=== PATIENT | female | born 1945 | race Caucasian/White ===

== ENCOUNTER 2018-05-23 01:03 | Outpatient (CLI) | payer OTHER, SELFPAY ==
[2018-05-23 09:13] LABS: Abs Immature Grans 0.03 k/cumm (0.0-0.09); Absolute Basophil Count 0.01 k/cumm (0.0-0.2); Absolute Eosinophil Count 0.26 k/cumm (0.0-0.7); Absolute Lymphocyte Count 1.98 k/cumm (1.2-3.4); Absolute Neutrophil Count 4.81 k/cumm (1.2-6.7); Basophils % 0.1; Eosinophils % 3.5; HCT 38.3 % (36.0-46.0); HGB 12.2 g/dL (12.0-15.5); Immature Grans % 0.4; Lymphocytes % 26.4; Mean Corp. HGB Concentration 31.9 g/dL (32.0-36.0); Mean Corpuscular Hemoglobin 29.8 pg (27.0-33.0); Mean Corpuscular Volume 93.6 fL (80-95); Mean Platelet Volume 9.2 fL (8.0-11.0); Monocytes % 5.3; Neutrophils % 64.3; Platelet Count 294 x1000/uL (130-400); RBC 4.09 m/cumm (4.00-5.20); RBC Distribution Width 14.2 % (11.7-14.6); White Blood Cell Count 7.49 k/cumm (4.4-10.8)
[2018-05-23 09:27] LABS: Hemoglobin A1C 6.6 % (4.5-6.2)
[2018-05-23 11:03] LABS: ALT 29 U/L (12-78); AST 26 U/L (15-37); Albumin 3.4 g/dL (3.4-5.0); Alkaline Phosphatase 102 U/L (46-116); Anion Gap 13.1 mmol/L (3-11); BUN 22 mg/dL (7-18); Bilirubin, Total 0.5 mg/dL (0.2-1.0); CO2 23.9 mmol/L (21.0-32.0); CREATININE 1.21 mg/dL (0.55-1.02); Calcium 9.2 mg/dL (8.5-10.1); Chloride 104 mmol/L (98-107); Cholesterol 154 mg/dL (50-200); Estimated GFR 43.62 (mL/min/1.73m2); Glucose 144 mg/dL (70-100); HDL Cholesterol 49 mg/dL (40-60); LDL CHOLESTEROL 90 mg/dL (<100); Potassium 4.1 mmol/L (3.5-5.1); Sodium 141 mmol/L (136-145); Triglyceride 102 mg/dL (30-150)
== END 2018-05-23 01:23 ==
PROVIDERS: PCP Nurse Practitioner; Visit Provider Nurse Practitioner
DX: I10 Essential (primary) hypertension (principal); E11.9 Type 2 diabetes mellitus without complications; E78.5 Hyperlipidemia, unspecified
CPT/HCPCS: 36415; 80053; 80061; 83721; 83036; 85025

== ENCOUNTER → 2018-06-06 | Outpatient (CLI) | payer OTHER, SELFPAY ==
--- NOTE | 2018-06-06 07:23 | DI.RAD_ITS ---
SYMPTOMS/DIAGNOSIS: LEFT HIP PAIN, M25.552 LEFT HIP INJECTION: Fluoroscopy Time: 6 sec Fluoroscopy was utilized by Dr. Cruz during the performance of a left hip injection. Please refer to the procedure report for complete details.
[2018-06-06] MEDS: methylPREDNISolone ACETATE 80 MG/ML VIAL IM (15:07)
[2018-06-06] MEDS: Bupivacaine 0.5% Pres-Free 10 ML VIAL 30 ML IJ (15:08)
[2018-06-06] MEDS: Omnipaque 300 MG/ML 10 ML BTL IJ (15:10)
--- NOTE | 2018-06-06 15:35 | W.PROCNOTE ---
Date of service: 06/06/18 Time of Service: 15:35 Procedure Note Date of procedure: 06/06/18 Procedure: Left Hip Injection with Fluoroscopic Guidance Surgeon/Proceduralist/Physician: Tadeo Cruz Procedure Diagnosis: Left Hip Osteoarthritis Procedure Indications: Dena has had persistent pain of the LEFT hip and groin. Noninvasive measures have been tried. To serve as both diagnostic and therapeutic, an injection under fluoroscopy was recommended. I had discussed the risks of the procedure and the patient elected to proceed. Procedure Description: Dena was greeted in the flouroscopy room. The correct side was identified and the consent was reviewed with the patient and signed. The patient was then placed in the supine position on the fluoroscopy table. The LEFT hip was then prepped with Chloraprep. The anterolateral injection starting point was identiifed by bony landmarks and fluoroscopy. The skin and soft tissue in the tract of the injection was anesthetized with 1% Lidocaine. A spinal needle was then inserted deep into the hip joint at the level of the lateral femoral neck under fluoroscopic guidance. A small amount of Omnipaque solution was injected to confirm intraarticular placement. Once confirmed, the hip was injected with 6cc of 0.5% Bupivicaine and 80mg of Depo-Medrol. A bandaid was placed on the injection site. The patient tolerated the procedure well and noted improvement in pre-injection pain.
== END ==
PROVIDERS: PCP Nurse Practitioner; Visit Provider Student in an Organized Health Care Education/Training Program
DX: M25.552 Pain in left hip (principal); M16.12 Unilateral primary osteoarthritis, left hip
CPT/HCPCS: 20610; 77002; J1040

== ENCOUNTER 2018-06-28 00:14 | Outpatient (CLI) | payer OTHER, SELFPAY ==
--- NOTE | 2018-06-28 14:30 | DI.MRI_ITS ---
SYMPTOM/DIAGNOSIS: LT HIP PAIN LEFT HIP MRI: MRI examination of the hip was performed according to the usual protocol. There is reportedly no known injury. No significant bony signal abnormality is seen and there is no evidence of a fracture by MR criteria. Note is made of abnormal signal involving obturator externus, abductor brevis and glutei medius and minimi with findings suggesting muscle tear and/or contusion. No right sided soft tissue signal abnormality is seen. The findings could represent an inflammatory process rather than trauma. No significant fluid identified in the hip joint. CONCLUSION: Markedly abnormal signal in multiple muscles around the hip as described above, please correlate clinically regarding suspected trauma versus inflammatory or infectious process. No fracture identified. No hip joint effusion.
== END 2018-06-28 00:34 ==
PROVIDERS: PCP Nurse Practitioner; Visit Provider Student in an Organized Health Care Education/Training Program
DX: M25.552 Pain in left hip (principal); R93.7 Abnormal findings on diagnostic imaging of other parts of musculoskeletal system
CPT/HCPCS: 73721

== ENCOUNTER 2018-07-03 12:53 | Inpatient (IN) | payer OTHER, MEDICARE, SELFPAY ==
[2018-07-03 13:00] VITALS: BP 139/66; PULSE 95; RESP 18; TEMP 36.7; O2SAT 99
[2018-07-03 14:12] VITALS: BP 139/66; PULSE 95; RESP 18; TEMP 36.7; O2SAT 99
[2018-07-03 15:20] VITALS: BP 118/70; PULSE 92; RESP 16; TEMP 37; O2SAT 100
[2018-07-03] MEDS: PIPERACILLIN/TAZO 3.375 GM in Normal Saline 50 ML IVPB ×2 (15:25→20:52)
[2018-07-03] MEDS: Normal Saline Flush 10 ML SYR IVP (15:26)
[2018-07-03] MEDS: Normal Saline 500 ML 50 ML IV (15:26)
[2018-07-03] MEDS: VANCOMYCIN 1,000 MG in Normal Saline 250 ML 166.6666 MG IVPB (16:22)
--- NOTE | 2018-07-03 16:23 | W.PM.HP.N ---
Date of service: 07/03/18 Time of Service: 16:23 Assessment and Plan (1) Abscess of left hip: Current visit: Yes Status: Acute Dena is a 73-year-old who has soft tissue abscesses of the left hip. It is very possible that this infection started in the hip joint itself but I reaspirated the hip today with confirmation to be an intra-articular without any return of fluid. Therefore, I do not think this has to be operated on for debridement. Given her habitus I do think there is morbidity and performing the surgery if we can treat without. I do think we will start broad-spectrum antibiotics. We will check blood cultures. I will likely narrow her down assuming this is a staph organism. I did discuss the case at length with the musculoskeletal radiologist at [facility]. They do not believe that the abscesses are large enough to drain. We will continue to follow her labs. I will ask for a hospice consult given her multiple medical issues and the spontaneous nature of this left hip infection. We will start Vanco and Zosyn. Blood cultures are ordered. Her CRP is elevated at over 7 and we will follow this daily. History of Present Illness Chief Complaint: Left Hip Pain Narrative: Dena is a 73-year-old who has been seen for left hip pain. This pain started insidiously. It developed over the course of a few months and really worsened over the last 3 weeks. This time we treat her for what appear to be hip tendinitis. This did not improve and therefore I offered an intra-articular injection. This injection did not seem to help out her pain and since that injection things only gotten worse. She denies any significant pain when she stands. However, the initiation of movement of the hip causes significant pain. This pain is posterior lateral but also is deep within the groin and the medial proximal thigh. She denies numbness or tingling. She is unable to ambulate more than 7 or 8 steps at home but she is still doing this on a daily basis. She has to use multiple assistive devices. She denies any fevers or chills. She denies fatigue. She denies chest pain, shortness of breath, cough. She denies dysuria or frequency. She has had no previous procedures to this left hip. I did perform an MRI which revealed multiple fluid collections within the musculature of the left hip. Review of Systems Review of Systems All systems reviewed & are unremarkable except as noted in HPI and below PFSH Diabetes mellitus, type 2 Disorder of gallbladder Female infertility Hyperlipidemia Hypertension Obesity Family History Other Diabetes Heart disease Hyperlipidemia Abdominal hysterectomy Biopsy of breast Cholecystectomy Dilation and curettage Open Carpal Tunnel release Replacement of total knee joint Family History Other Diabetes Heart disease Hyperlipidemia Medical History Diabetes mellitus, type 2 Disorder of gallbladder Female infertility Hyperlipidemia Hypertension Obesity Social History adopted: No lives independently: Yes number of children: 0 Smoking/Tobacco Use Status: Never alcohol intake: never substance use type: does not use seatbelt use: always Surgical History Abdominal hysterectomy Biopsy of breast Cholecystectomy Dilation and curettage Open Carpal Tunnel release Replacement of total knee joint Social History adopted: No lives independently: Yes number of children: 0 Smoking/Tobacco Use Status: Never alcohol intake: never substance use type: does not use seatbelt use: always Meds Home Medications Medication Instructions Recorded Confirmed Type blood sugar diagnostic [FreeStyle #100 strip 12/12/17 06/24/18 Rx Test] lancets [FreeStyle Lancets] #50 ea 12/12/17 06/24/18 Rx losartan [Cozaar] 75 mg PO DAILY #135 tab 01/31/18 07/03/18 Rx hydrochlorothiazide 12.5 mg PO DAILY #45 tab 03/04/18 07/03/18 Rx atorvastatin [Lipitor] 10 mg PO DAILY #90 tab-cap 03/19/18 07/03/18 Rx celecoxib 200 mg capsule 200 mg PO DAILY #90 cap 04/10/18 07/03/18 Rx sitagliptin 50 mg tablet 50 mg PO DAILY #90 tab 06/12/18 07/03/18 Rx Allergies Allergy/AdvReac Type Severity Reaction Status Date / Time prednisone AdvReac Mild Unverified 06/24/18 13:26 Exam Narrative Exam Narrative: Evaluation of the left hip shows no erythema. There is some pain to palpation medially within the left hip. She is able to tolerate some gentle internal/external rotation. However, active range of motion causes significant pain including flexion, internal rotation, external rotation. Passive rotation does seem to cause pain after about 10 or 15 degree arc. There are no open sores. No wounds. There is pain to palpation along the left hip including the greater trochanter. Sensation intact light touch over the deep and superficial peroneal nerves and tibial nerve. Femoral nerve sensation and function is intact. Results Imaging Imaging Studies: MRI of the left hip with and without contrast shows multiple areas of enhancing fluid collections around the piriformis, obturator externus, abductor brevis, and gluteus medius. There is not appear to be any significant fluid within the left hip although there is synovitis and irritation inflammation seen around the left hip. Last Vital Signs Temp 37.0 C 07/03/18 15:20 Pulse 92 H 07/03/18 15:20 Resp 16 07/03/18 15:20 BP 118/70 07/03/18 15:20 Pulse Ox 100 07/03/18 15:20
--- NOTE | 2018-07-03 17:05 | MCONE_ITS ---
Date of service: 07/03/18 Time of Service: 16:59 Assessment and Plan (1) Abscess of left hip: Current visit: Yes Status: Acute Discussed with Dr Cruz. As we do not have any microbiology data to help guide our antibiotic therapy, I feel the patient should be on vancomycin/ zosyn. Blood cultures are pending. Will trend ESR/CRP and monitor for fevers. (2) Diabetes mellitus type 2 in obese: Current visit: No Status: Chronic Patient will be on carb consistent diet with corrective insulin coverage. (3) Essential hypertension: Current visit: No Status: Chronic Agree with continuing home medications. (4) Hyperlipidemia: Current visit: No Status: Chronic Continue atorvastatin (5) Morbid obesity: Current visit: No Status: Chronic More than obesity, I am concerned about the patient's unintentional weight loss. She has never had a colonoscopy. She is due for her mammogram. A malignancy does not need to be considered, especially considering the somewhat odd story with the development of the L hip abscesses. (6) Ambulatory dysfunction: Current visit: Yes Status: Acute PT/OT consults (7) DVT prophylaxis: Current visit: Yes Status: Acute Defer to primary team History of Present Illness Chief Complaint: L hip pain Narrative: Ms Madrigal is a 73 year old female with PMHx of NIDDM2, HTN, hyperlipidemia, obesity with BM of 47 and osteoarthritis, who was admitted to Dr Cruz's service for fluid collections around her L hip, suspected to be of infectious etiology/abscesses. The patient stated that her L hip pain began around February 11. She does not recall any trauma to that hip preceding this. She went to the ED that - she was told she had a UTI, was given a prescription for keflex and was discharged. The antibiotics didn't help. Meanwhile, the pain did get better on its own, but then started to get progressively worse, and especially so over the last 3 weeks, to the point that the patient had to take FMLA. She had a L hip injection by Dr Cruz on 06/06/18, with no relief. She obtained a non-contrast MRI of the hip as outpatient of 06/28 and a contrast MRI on 07/03, after which it was felt that she would necessitate admission as the MRI showed possible septic arthritis and multiple adjacent muscular and soft tissue abscesses. An attempt to aspirate one of these abscesses was unsuccessful. Consults Consult date: 07/03/18 Requesting physician: Tadeo Cruz Review of Systems Review of Systems 12 systems reviewed. Pertinent positives and negatives are as per HPI. Additionally, the patient endorses a 10 lb unintentional weight loss in 3 weeks. She denies any fevers or night sweats. PFSH Diabetes mellitus, type 2 Disorder of gallbladder Female infertility Hyperlipidemia Hypertension Obesity Family History Other Diabetes Heart disease Hyperlipidemia Abdominal hysterectomy Biopsy of breast Cholecystectomy Dilation and curettage Open Carpal Tunnel release Replacement of total knee joint Family History Other Diabetes Heart disease Hyperlipidemia Medical History Diabetes mellitus, type 2 Disorder of gallbladder Female infertility Hyperlipidemia Hypertension Obesity Social History adopted: No lives independently: Yes number of children: 0 Smoking/Tobacco Use Status: Never alcohol intake: never substance use type: does not use seatbelt use: always Surgical History Abdominal hysterectomy Biopsy of breast Cholecystectomy Dilation and curettage Open Carpal Tunnel release Replacement of total knee joint Social History adopted: No lives independently: Yes number of children: 0 Smoking/Tobacco Use Status: Never alcohol intake: never substance use type: does not use seatbelt use: always Exam Narrative Exam Narrative: General: Obese female, very pleasant, laying in bed, not in acute distress Neurological: A&Ox3, no focal deficits Psychiatric: appropriate Skin: no bruises or rashes - intact HEENT: EOMI, MMM, clear oropharynx, no goiter or JVD, no submandibular or cervical lymphadenopathy Cardiovascular: RRR, no m/r/g Lungs: CTAB Gastrointestinal: abdomen soft, nontender, nondistended Extremities: no edema, clubbing, or cyanosis of BLE's. 2 + pedal pulses B. L groin pain. Results Last Vital Signs Temp 37.0 C 07/03/18 15:20 Pulse 92 H 07/03/18 15:20 Resp 16 07/03/18 15:20 BP 118/70 07/03/18 15:20 Pulse Ox 100 07/03/18 15:20 MRI L hip with contrast 07/03/18: Marked abnormal enhancement surrounding the left hip consistent with septic arthritis and multiple adjacent muscular and soft tissue abscesses.
--- NOTE | 2018-07-03 17:50 | W.PROCNOTE ---
Date of service: 07/03/18 Time of Service: 17:51 Procedure Note Date of procedure: 07/03/18 Procedure: Left Hip Aspiration with Fluoroscopic Guidance Surgeon/Proceduralist/Physician: Tadeo Cruz Procedure Diagnosis: Left Hip Pain Procedure Indications: Dena has had persistent pain of the LEFT hip and groin. Noninvasive measures have been tried. multiple abscesses have been found around the left hip. To evaluate if there is any effusion within left hip, and aspiration was recommended. Procedure Description: Dena was greeted in the flouroscopy room. The correct side was identified and the consent was reviewed with the patient and signed. The patient was then placed in the supine position on the fluoroscopy table. The LEFT hip was then prepped with Chloraprep. The anterolateral injection starting point was identiifed by bony landmarks and fluoroscopy. The skin and soft tissue in the tract of the injection was anesthetized with 1% Lidocaine. A spinal needle was then inserted deep into the hip joint at the level of the lateral femoral neck under fluoroscopic guidance. An aspiration was performed which did not obtain any fluid. I then injected a small amount of Omnipaque solution was injected to confirm intraarticular placement. Once confirmed, the hip was once again aspirated with no significant return of fluid. A bandaid was placed on the injection site.
[2018-07-03 19:36] VITALS: BP 145/68; PULSE 86; RESP 19; TEMP 36.9; O2SAT 95
[2018-07-03 20:17] VITALS: BP 145/68; PULSE 86; RESP 19; TEMP 36.9; O2SAT 95
[2018-07-03 23:40] VITALS: BP 134/75; PULSE 87; RESP 16; TEMP 37.2; O2SAT 97
[2018-07-03] MEDS: Acetaminophen 325 MG TAB 650 MG PO (23:46)
[2018-07-04] MEDS: PIPERACILLIN/TAZO 3.375 GM in Normal Saline 50 ML IVPB ×3 (02:31→16:15)
[2018-07-04] MEDS: Normal Saline Flush 10 ML SYR IVP (02:31)
[2018-07-04 02:43] VITALS: BP 132/76; PULSE 89; RESP 16; TEMP 36.9; O2SAT 97
[2018-07-04] MEDS: VANCOMYCIN 1,000 MG in Normal Saline 250 ML 166.7 MG IVPB (03:43)
--- NOTE | 2018-07-04 06:27 | W.ORTHOCONSU ---
PFSH Diabetes mellitus, type 2 Disorder of gallbladder Female infertility Hyperlipidemia Hypertension Obesity Family History Other Diabetes Heart disease Hyperlipidemia Abdominal hysterectomy Biopsy of breast Cholecystectomy Dilation and curettage Open Carpal Tunnel release Replacement of total knee joint Family History Other Diabetes Heart disease Hyperlipidemia Medical History Diabetes mellitus, type 2 Disorder of gallbladder Female infertility Hyperlipidemia Hypertension Obesity Social History adopted: No lives independently: Yes number of children: 0 Smoking/Tobacco Use Status: Never alcohol intake: never substance use type: does not use seatbelt use: always Surgical History Abdominal hysterectomy Biopsy of breast Cholecystectomy Dilation and curettage Open Carpal Tunnel release Replacement of total knee joint Social History adopted: No lives independently: Yes number of children: 0 Smoking/Tobacco Use Status: Never alcohol intake: never substance use type: does not use seatbelt use: always Results Last Vital Signs Temp 98.4 F 07/04/18 02:43 Pulse 89 07/04/18 02:43 Resp 16 07/04/18 02:43 BP 132/76 07/04/18 02:43 Pulse Ox 97 07/04/18 02:43 Labs : 07/04/18 05:35 07/04/18 05:35
[2018-07-04 07:30] VITALS: BP 143/72; PULSE 79; RESP 18; TEMP 36.3; O2SAT 97
[2018-07-04 07:33] LABS: Abs Immature Grans 0.02 k/cumm (0.0-0.09); Absolute Basophil Count 0.01 k/cumm (0.0-0.2); Absolute Eosinophil Count 0.15 k/cumm (0.0-0.7); Absolute Lymphocyte Count 1.48 k/cumm (1.2-3.4); Absolute Monocyte Count 0.41 k/cumm (0.11-0.7); Basophils % 0.2; Eosinophils % 2.5; HCT 31.4 % (36.0-46.0); HGB 9.7 g/dL (12.0-15.5); Immature Grans % 0.3; Lymphocytes % 24.4; Mean Corp. HGB Concentration 30.9 g/dL (32.0-36.0); Mean Corpuscular Hemoglobin 28.9 pg (27.0-33.0); Mean Corpuscular Volume 93.5 fL (80-95); Mean Platelet Volume 8.9 fL (8.0-11.0); Monocytes % 6.8; Neutrophils % 65.8; Platelet Count 353 x1000/uL (130-400); RBC 3.36 m/cumm (4.00-5.20); RBC Distribution Width 13.9 % (11.7-14.6); White Blood Cell Count 6.07 k/cumm (4.4-10.8)
[2018-07-04 07:34] LABS: Absolute Neutrophil Count 3.99 k/cumm (1.2-6.7)
[2018-07-04 07:37] LABS: Anion Gap 7.3 mmol/L (3-11); BUN 21 mg/dL (7-18); CO2 29.7 mmol/L (21.0-32.0); CREATININE 1.27 mg/dL (0.55-1.02); Calcium 8.7 mg/dL (8.5-10.1); Chloride 104 mmol/L (98-107); Creatine Kinase 46 U/L (26-192); Estimated GFR 41.25 (mL/min/1.73m2); Glucose 141 mg/dL (70-100); Magnesium 1.2 mg/dL (1.8-2.4); Potassium 3.8 mmol/L (3.5-5.1); Sodium 141 mmol/L (136-145)
--- NOTE | 2018-07-04 07:52 | PDOC.CMIN ---
- If Service Date Differs Date of service: 07/04/18 Time of Service: 07:52 Care Management Initial Assess REASON FOR HOSPITALIZATION:: (L) Hip abscess PAST MEDICAL HISTORY/PAST SURGICAL HISTORY:: Diabetes mellitus, type 2. Disorder of gallbladder. Female infertility. Hyperlipidemia. Hypertension. Obesity. Abdominal hysterectomy. Biopsy of breast. Cholecystectomy. Dilation and curettage. Open Carpal Tunnel release. Replacement of total knee joint PREVIOUS FUNCTIONAL STATUS/SOCIAL/FAMILY SUPPORTS:: Dena resides alone in [place], she states that she has friends/neighbors whom are local and supportive. Dena states that her judaism is very supportive, and that her milling machine operator is who brought her to the hospital. Dena works at [employer] in the [employer] department, she states that she works 20 hours a pay period, and that she still drives to work. CURRENT FUNCTIONAL STATUS:: Currently Dena is sitting up in bed when this writer editor visits. She is pleasant and receptive to discussion. ADVANCE DIRECTIVES:: On file - Joseluis Carlos is agent. Taylor Carlos is alternate Has patient been provided with information about the portal?: Yes Did the patient sign up for the portal?: No CODE STATUS:: Full Code INSURANCE COVERAGE / FINANCIAL ISSUES:: [employer], Medicare CURRENT HOME/COMMUNITY SERVICES/EQUIPMENT:: Currently Dena has a cane at home. She has no services in the community. PRIMARY CARE PHYSICIAN:: Shilpi Roman POTENTIAL DISCHARGE NEEDS:: F/U appointment with Dr. Cruz PATIENT/FAMILY EDUCATION NEEDS:: Review DC instructions, any limitations, and ongoing DC planning discussion. ANTICIPATED BARRIERS TO DISCHARGE:: None identified at this time. TRANSPORTATION:: Via private vehicle PLAN:: Dena will return home with no anticipated services. Dena will F/U with Dr. Cruz and plan of care as prescribed. CM met with PT whom states that Dena will require a FWW at time of DC. CM met with Dena whom states that she would like [facility] for her DME.
--- NOTE | 2018-07-04 07:56 | INITIAL_ITS ---
- If Service Date Differs Date of service: 07/04/18 Time of Service: 07:52 Care Management Initial Assess REASON FOR HOSPITALIZATION:: (L) Hip abscess PAST MEDICAL HISTORY/PAST SURGICAL HISTORY:: Diabetes mellitus, type 2. Disorder of gallbladder. Female infertility. Hyperlipidemia. Hypertension. Obesity. Abdominal hysterectomy. Biopsy of breast. Cholecystectomy. Dilation and curettage. Open Carpal Tunnel release. Replacement of total knee joint PREVIOUS FUNCTIONAL STATUS/SOCIAL/FAMILY SUPPORTS:: Dena resides alone in [place], she states that she has friends/neighbors whom are local and supportive. Dena states that her sikh is very supportive, and that her tricot knitter is who brought her to the hospital. Dena works at [employer] in the [employer] department, she states that she works 20 hours a pay period, and that she still drives to work. CURRENT FUNCTIONAL STATUS:: Currently Dena is sitting up in bed when this scenario writer visits. She is pleasant and receptive to discussion. ADVANCE DIRECTIVES:: On file - Joseluis Carlos is agent. Taylor Carlos is alternate Has patient been provided with information about the portal?: Yes Did the patient sign up for the portal?: No CODE STATUS:: Full Code INSURANCE COVERAGE / FINANCIAL ISSUES:: [employer], Medicare CURRENT HOME/COMMUNITY SERVICES/EQUIPMENT:: Currently Dean has a cane at home. She has no services in the community. PRIMARY CARE PHYSICIAN:: Shilpi Roman POTENTIAL DISCHARGE NEEDS:: F/U appointment with Dr. Cruz PATIENT/FAMILY EDUCATION NEEDS:: Review DC instructions, any limitations, and ongoing DC planning discussion. ANTICIPATED BARRIERS TO DISCHARGE:: None identified at this time. TRANSPORTATION:: Via private vehicle PLAN:: Dena will return home with no anticipated services. Dena will F/U with Dr. Cruz and plan of care as prescribed. CM met with PT whom states that Dena will require a FWW at time of DC. CM met with Dena whom states that she would like [facility] for her DME.
[2018-07-04] MEDS: Insulin Aspart 300 UNITS/3 ML PEN SC ×4 (08:38→22:24)
[2018-07-04] MEDS: Hydrochlorothiazide 25 MG TAB 12.5 MG PO (08:40)
[2018-07-04] MEDS: Atorvastatin 10 MG TAB PO (08:40)
[2018-07-04] MEDS: sitaGLIPtin 25 MG TABLET 50 MG PO (08:41)
[2018-07-04] MEDS: Losartan 50 MG TAB 75 MG PO (08:41)
--- NOTE | 2018-07-04 08:41 | OT.INIE ---
Occupational Therapy Notes Inpatient Occupational Therapy Evaluation Date: 07/04/18 Referring Doctor:Bridgett Ge MD OT Orders: Eval and Treat PATIENT PROFILE/ADMITTING DIAGNOSIS: Pt is a 73 year old female who was seen on 07/03/[address] Crzu for a (L) hip abscess. Pt was seen today for OT consult. Past Medical History: DMII, Disorder of gall bladder, hyperlipidemia, HTN, Obesity, abnormal hysterectomy, cholecystectomy, open carpal tunnel release, total knee replacement about 14 years ago. Social History/Home Situation: Pt lives alone in a mobile home. She has four steps to enter with (B) railings. She reports that her home set up is all on one floor. She has a walk in shower with a shower chair and is (I) with all ADLs/IADLs. Equipment owned/DME: Cane, shower chair SUBJECTIVE: Pt was sitting in chair when OT arrived. Pt is agreeable to OT session and reports that her baseline and current functional independence is (I) with all ADLs/IADLs. OBJECTIVE: General Observation: IV (L) UE, pt is pleasant and responds appropriately to questions being asked. Mental Status: A&Ox3 Pain: 4/10 pain in (L) groin ROM: RUE WNL L UE WNL STRENGTH: RUE 5/5 throughout LUE 5/5 throughout SENSATION: Pt intact to light touch and sensation through (B) UE. EATING (I) able to open and close all containers and bring food to mouth (I). BALANCE: Static sitting Normal Dynamic Sitting Normal SPECIAL TESTS: Daily Activity Limitations Standardized Measure [facility] AM -PAC ?6 clicks? Daily Activity Inpatient Short Form: Raw score: 23 Standardized score: 51.12 CMS score: 15.86% [facility] modifier: CI INFORMED CONSENT/EDUCATION: Pt instructed in purpose of OT Consult and plan of care. ASSESSMENT: Patient is a 73-year-old female referred to occupational therapy services with diagnosis of (L) hip abscess and was seen by Dr. Cruz on 07/03/18 in setting of DMII, Disorder of gall bladder, hyperlipidemia, HTN, Obesity, abnormal hysterectomy, cholecystectomy, open carpal tunnel release, total knee replacement about 14 years ago. Patient was seen for OT consult, she is performing at her baseline (I) for functional ADLs/IADLs and is very (I). Her home is set up for a successful return home and OT recommends that pt return home when medically discharged per MD orders. AMPAC score 23, CMS score 15.86% Patient is assessed as a Low 08686 complexity based on the following: History: See Above Examination: See Above Presentation: Stable Decision Making: AMPAC score 23, CMS score 15.86% GOALS N/A PLAN OF CARE/TREATMENT PLAN: OT consult only. DISCHARGE RECOMMENDATIONS Home when medically cleared per MD. TREATMENT TIME/MINUTES/CODES IE 21 minutes (08:20) G Codes in the area of self- : washing oneself, toileting, dressing, eating and drinking, current status GO [id number] CI projected status GO [id number]. Discharge status GO [id number]. Based on AMPAC score 23, CMS score 15.86%. Sanjuana Hernandez OTR/L
--- NOTE | 2018-07-04 09:32 | PT.INIE ---
Date of service: 07/04/18 Time of Service: 09:33 PT Notes Inpatient Physical Therapy Evaluation Date: 07/04/2018 Referring Doctor: Bridgett Ge PT Orders: PT CONSULT: Eval/treat Precautions: Standard precautions Patient Profile/Admitting Diagnosis: Patient is a 73-year-old female admitted with abscess left hip, receiving IV antibiotics PMHX: Obesity, total knee arthroplasty, carpal tunnel release, diabetes mellitus type 2, hypertension, hyperlipidemia, gallbladder disorder, hysterectomy, cholecystectomy, dilation and curettage, fertility issues Social History/Home Situation: Lives alone in a trailer 4 steps with bilateral railing to enter. Baseline mobility independent gait with single-point cane, independent with ADLs. Equipment Owned/DME: Cane, shower bench. Patient states she feels she needs a front wheel walker at this time due to left hip abscess to improve gait stability and home setting Subjective: Patient sitting in chair finished breakfast alert and agreeable to PT consult, states she is admit been moving around without difficulty. Objective: General Observation: IV left upper extremity Mental Status: A and O x3 Pain: Mild pain left hip with exertion Bed Mobility/Transfers: Sit to stand: Independent Chair to bathroom: Independent with FWW Stand to sit: Independent Sit<> supine: Patient states she needs assist with hospital bed transfers due to height of bed, but she is independent with this transfer at home due to bed height being lower. Gait: Independent with FWW 250 feet, WBAT LLE, step through gait pattern with no loss of balance Stairs: Performed 5 steps ascending and descending with bilateral railing, WBAT LLE, independent. Reviewed step sequence, patient verbalized understanding Therex: Patient issued home exercise program and instructed in lower extremity strengthening program, focusing on ankle pumps quad sets glutes sets, long arc quad left lower extremity. Hip flexion straight leg raise hip abduction right lower extremity. Patient verbalized understanding and had no questions about home exercise program at this time. Balance: Static Sitting: Normal Dynamic Sitting: Normal Static Standing: Good Dynamic Standing: Fair-requiring FWW Special Tests: Mobility Limitations Standardized Measure [facility] AM-PAC 6 clicks Basic Mobility Inpatient Short Form: Raw Score: 24 standardized Score: 61.14 CMS Score: 0% CMS Modifier: CH Informed Consent/Education: Patient instructed in purpose of PT consult and plan of care. Assessment: Patient is a 73-year-old female admitted with abscess left hip, receiving IV antibiotics in setting of obesity, total knee arthroplasty, carpal tunnel release, diabetes mellitus type 2, hypertension. Patient presents with the following impairment level findings: Pain in left hip status post abscess and drainage, decreased static and dynamic standing balance requiring use of front wheel walker for gait stability due to left hip soreness. Patient is independent with transfers, independent with gait with use of FWW on level sufaces, independent with stairs. Patient has been instructed in lower extremity strengthening exercises she can perform independently. Patient is not in need of skilled therapy services at this time, recommend continued transfers and gait mobility with FWW with nursing until discharge. FWW recommended for home to reduce risk of fall due to left hip soreness. Impairments are contributing to the following functional limitations: AMPAC score CMS Score: 0% Patient is assessed as a Low 27286 complexity based on the following: History: See above Examination: See above Presentation: Stable Decision Making: : AMPAC score CMS Score: 0% Goals: not applicable Plan of Care/Treatment Plan: PT eval only DISCHARGE RECOMMENDATIONS: Home with FWW for gait stability TREATMENT CODE/TIME: 27 minutes IE 9:30 AM G Codes in the area mobility of walking and moving around: current status [id number] -; projected status GP [id number]. Discharge status (if discharging) GP [id number] based on : AMPAC score CMS Score: 0% Gayla Wilburn PT Disclaimer: This note was created using [employer] voice recognition software. It was reviewed for major content. However, there may be multiple small discrepancies and errors due to the voice recognition aspects of the software.
--- NOTE | 2018-07-04 09:45 | IN_ITS ---
Date of service: 07/04/18 Time of Service: 09:33 PT Notes Inpatient Physical Therapy Evaluation Date: 07/04/2018 Referring Doctor: Bridgett Ge PT Orders: PT CONSULT: Eval/treat Precautions: Standard precautions Patient Profile/Admitting Diagnosis: Patient is a 73-year-old female admitted with abscess left hip, receiving IV antibiotics PMHX: Obesity, total knee arthroplasty, carpal tunnel release, diabetes mellitus type 2, hypertension, hyperlipidemia, gallbladder disorder, hysterectomy, cholecystectomy, dilation and curettage, fertility issues Social History/Home Situation: Lives alone in a trailer 4 steps with bilateral railing to enter. Baseline mobility independent gait with single-point cane, independent with ADLs. Equipment Owned/DME: Cane, shower bench. Patient states she feels she needs a front wheel walker at this time due to left hip abscess to improve gait stability and home setting Subjective: Patient sitting in chair finished breakfast alert and agreeable to PT consult, states she is admit been moving around without difficulty. Objective: General Observation: IV left upper extremity Mental Status: A and O x3 Pain: Mild pain left hip with exertion Bed Mobility/Transfers: Sit to stand: Independent Chair to bathroom: Independent with FWW Stand to sit: Independent Sit<> supine: Patient states she needs assist with hospital bed transfers due to height of bed, but she is independent with this transfer at home due to bed height being lower. Gait: Independent with FWW 250 feet, WBAT LLE, step through gait pattern with no loss of balance Stairs: Performed 5 steps ascending and descending with bilateral railing, WBAT LLE, independent. Reviewed step sequence, patient verbalized understanding Therex: Patient issued home exercise program and instructed in lower extremity strengthening program, focusing on ankle pumps quad sets glutes sets, long arc quad left lower extremity. Hip flexion straight leg raise hip abduction right lower extremity. Patient verbalized understanding and had no questions about home exercise program at this time. Balance: Static Sitting: Normal Dynamic Sitting: Normal Static Standing: Good Dynamic Standing: Fair-requiring FWW Special Tests: Mobility Limitations Standardized Measure [facility] AM-PAC 6 clicks Basic Mobility Inpatient Short Form: Raw Score: 24 standardized Score: 61.14 CMS Score: 0% CMS Modifier: CH Informed Consent/Education: Patient instructed in purpose of PT consult and plan of care. Assessment: Patient is a 73-year-old female admitted with abscess left hip, receiving IV antibiotics in setting of obesity, total knee arthroplasty, carpal tunnel release, diabetes mellitus type 2, hypertension. Patient presents with the following impairment level findings: Pain in left hip status post abscess and drainage, decreased static and dynamic standing balance requiring use of front wheel walker for gait stability due to left hip soreness. Patient is independent with transfers, independent with gait with use of FWW on level sufaces, independent with stairs. Patient has been instructed in lower extremity strengthening exercises she can perform independently. Patient is not in need of skilled therapy services at this time, recommend continued transfers and gait mobility with FWW with nursing until discharge. FWW recommended for home to reduce risk of fall due to left hip soreness. Impairments are contributing to the following functional limitations: AMPAC score CMS Score: 0% Patient is assessed as a Low 40605 complexity based on the following: History: See above Examination: See above Presentation: Stable Decision Making: : AMPAC score CMS Score: 0% Goals: not applicable Plan of Care/Treatment Plan: PT eval only DISCHARGE RECOMMENDATIONS: Home with FWW for gait stability TREATMENT CODE/TIME: 27 minutes IE 9:30 AM G Codes in the area mobility of walking and moving around: current status [id number] -; projected status GP [id number]. Discharge status (if discharging) GP [id number] based on : AMPAC score CMS Score: 0% Gayla Wilburn PT Disclaimer: This note was created using [employer] voice recognition software. It was reviewed for major content. However, there may be multiple small discrepancies and errors due to the voice recognition aspects of the software.
--- NOTE | 2018-07-04 11:52 | CHAPLAIN ---
Dena is an [employer] employee who works in [employer]. She was admitted last night and this morning tells me she is waiting to here from Dr. Cruz what her next steps will be. She had tests yesterday and told me she has sacks of fluid on her hip, and she hasn't been able to work for a couple of weeks. Dena is a member of the [employer]. Her pacu rn, Rev. Kolby Johnson, brought to the hospital yesterday and will continue to be in touch with her. Dena said the [employer] community has been very supportive of her. Coworkers have also be in to visit with her and offer support.
[2018-07-04 11:57] VITALS: BP 121/74; PULSE 91; RESP 18; TEMP 36.9; O2SAT 97
[2018-07-04] MEDS: MAGNESIUM SULFATE 4 GM/100 ML BAG IVPB (12:25)
--- NOTE | 2018-07-04 15:28 | DI.RAD_ITS ---
SYMPTOMS/DIAGNOSIS: POST LINE INSERTION PORTABLE SEMI-ERECT CHEST: Comparison is made with September,. The heart size is at the upper limits of normal. The lungs appear clear. A PICC line has been inserted via the left arm. The tip projects in the superior vena cava. No pneumothorax is seen. IMPRESSION: Satisfactory positioning of PICC line.
[2018-07-04] MEDS: Lactobacillus Acidophilus CAP 1 CAP PO ×2 (15:49→19:47)
[2018-07-04 17:08] VITALS: BP 148/72; PULSE 116; RESP 20; TEMP 36.4; O2SAT 98
--- NOTE | 2018-07-04 18:18 | W.PM.PROGNOT ---
Date of Service Date of service: 07/04/18 Time of Service: 15:00 Assessment and Plan (1) Abscess of left hip: Current visit: Yes Status: Acute Blood cultures are pending. I have placed a call to [facility] - awaiting call back. Continue empiric antiobiotics. Trend CRP. (2) Diabetes mellitus type 2 in obese: Current visit: No Status: Chronic Continue basal bolus insulin - BG's in range. Continue januvia. (3) Essential hypertension: Current visit: No Status: Chronic No change in tx (4) Hyperlipidemia: Current visit: No Status: Chronic Continue atorvastatin (5) Morbid obesity: Current visit: No Status: Chronic BMI 46 Once able, the patient should be encouraged to make lifestyle modefications (6) Ambulatory dysfunction: Current visit: Yes Status: Acute PT/OT is working with the patient (7) DVT prophylaxis: Current visit: Yes Status: Acute Defer to primary team - surgical plans not yet formalized Subjective Interval history since last seen: The patient states her pain in the hip is 5/10. She is able to walk on it. She denies dizziness, chest pain, shortness of breath, nausea, vomiting. Exam Narrative Exam Narrative: General: obese female, appears comfortable in a chair HEENT: EOMI, MMM Heart: RRR, no m/r/g Lungs: CTAB GI: abdomen soft, nontender, nondistended Extremities: no e/c/c BLE's Objective Objective Clinical Data: Abnormal lab results 07/04/18 07/04/18 Range/Units 06:40 06:40 RBC 3.36 L (4.00-5.20) m/cumm Hgb 9.7 L (12.0-15.5) g/dL Hct 31.4 L (36.0-46.0) % MCHC 30.9 L (32.0-36.0) g/dL BUN 21 H (7-18) mg/dL Creatinine 1.27 H (0.55-1.02) mg/dL Glucose 141 H D (70-100) mg/dL Magnesium 1.2 L (1.8-2.4) mg/dL Vital Signs Temperature 36.4 C L 07/04/18 17:08 Temperature Source Tympanic 07/04/18 17:08 Pulse 116 H 07/04/18 17:08 Pulse Rhythm Regular 07/04/18 11:09 Respiratory Rate 20 07/04/18 17:08 Respiratory Effort 07/04/18 11:09 Respiratory Depth Normal 07/04/18 11:09 Respiratory Pattern Normal 07/04/18 11:09 Blood Pressure 148/72 H 07/04/18 17:08 Pulse Oximetry 98 07/04/18 17:08 Oxygen Delivery Method Room Air 07/04/18 17:08 Oxygen Flow Rate 0 07/04/18 17:08 Pain Level 5 07/04/18 11:57 Intake & Output 07/03/18 07/04/18 07/04/18 23:59 11:59 23:59 Intake Total 1056.667 / 7396.434 5311.333 / 1163.333 530 / 530 Output Total 800 / 800 750 / 750 700 / 700 Balance 256.667 / 256.667 413.333 / 413.333 -170 / -170 Weight 104.5 kg Intake: IV 576.667 / 576.667 573.333 / 573.333 50 / 50 Oral 480 / 480 590 / 590 480 / 480 Output: Urine 800 / 800 750 / 750 700 / 700 Other: Urine Color Yellow Yellow Yellow Urine Appearance Clear Clear Clear Urine Odor None Normal None Comment not viewed independent void Stool Size Small Stool Characteristics Soft Formed Voiding Methods Toilet Toilet Toilet Laboratory Results WBC 6.07 k/cumm (4.4-10.8) D 07/04/18 06:40 RBC 3.36 m/cumm (4.00-5.20) L 07/04/18 06:40 Hgb 9.7 g/dL (12.0-15.5) L 07/04/18 06:40 Hct 31.4 % (36.0-46.0) L 07/04/18 06:40 MCV 93.5 fL (80-95) 07/04/18 06:40 MCH 28.9 pg (27.0-33.0) 07/04/18 06:40 MCHC 30.9 g/dL (32.0-36.0) L 07/04/18 06:40 RDW 13.9 % (11.7-14.6) 07/04/18 06:40 Plt Count 353 x1000/uL (130-400) 07/04/18 06:40 MPV 8.9 fL (8.0-11.0) 07/04/18 06:40 Immature Gran % 0.3 07/04/18 06:40 Neutrophils % 65.8 07/04/18 06:40 Lymphocytes % 24.4 12 06:40 Monocytes % 6.8 12 06:40 Eosinophils % 2.5 07/04/18 06:40 Basophils % 0.2 07/04/18 06:40 Absolute Neutrophils 3.99 k/cumm (1.2-6.7) 07/04/18 06:40 Absolute Lymphocytes 1.48 k/cumm (1.2-3.4) 07/04/18 06:40 Absolute Monocytes 0.41 k/cumm (0.11-0.7) 07/04/18 06:40 Absolute Eosinophils 0.15 k/cumm (0.0-0.7) 07/04/18 06:40 Absolute Basophils 0.01 k/cumm (0.0-0.2) 07/04/18 06:40 Sodium 141 mmol/L (136-145) 07/04/18 06:40 Potassium 3.8 mmol/L (3.5-5.1) 07/04/18 06:40 Chloride 104 mmol/L (98-107) 07/04/18 06:40 Carbon Dioxide 29.7 mmol/L (21.0-32.0) 07/04/18 06:40 Anion Gap 7.3 mmol/L (3-11) 07/04/18 06:40 BUN 21 mg/dL (7-18) H 07/04/18 06:40 Creatinine 1.27 mg/dL (0.55-1.02) H 07/04/18 06:40 Estimated GFR/1.73 m2 41.25 (mL/min/1.73m2) 07/04/18 06:40 Glucose 141 mg/dL (70-100) H D 07/04/18 06:40 Calcium 8.7 mg/dL (8.5-10.1) 07/04/18 06:40 Magnesium 1.2 mg/dL (1.8-2.4) L 07/04/18 06:40 Creatine Kinase 46 U/L (26-192) 07/04/18 06:40 Blood cx x 2 pending
--- NOTE | 2018-07-04 18:22 | PGE_ITS ---
Date of Service Date of service: 07/04/18 Time of Service: 15:00 Assessment and Plan (1) Abscess of left hip: Current visit: Yes Status: Acute Blood cultures are pending. I have placed a call to [facility] - awaiting call back. Continue empiric antiobiotics. Trend CRP. (2) Diabetes mellitus type 2 in obese: Current visit: No Status: Chronic Continue basal bolus insulin - BG's in range. Continue januvia. (3) Essential hypertension: Current visit: No Status: Chronic No change in tx (4) Hyperlipidemia: Current visit: No Status: Chronic Continue atorvastatin (5) Morbid obesity: Current visit: No Status: Chronic BMI 46 Once able, the patient should be encouraged to make lifestyle modefications (6) Ambulatory dysfunction: Current visit: Yes Status: Acute PT/OT is working with the patient (7) DVT prophylaxis: Current visit: Yes Status: Acute Defer to primary team - surgical plans not yet formalized Subjective Interval history since last seen: The patient states her pain in the hip is 5/ 10. She is able to walk on it. She denies dizziness, chest pain, shortness of breath, nausea, vomiting. Exam Narrative Exam Narrative: General: obese female, appears comfortable in a chair HEENT: EOMI, MMM Heart: RRR, no m/r/g Lungs: CTAB GI: abdomen soft, nontender, nondistended Extremities: no e/c/c BLE's Objective Objective Clinical Data: Abnormal lab results 07/04/18 07/04/18 Range/Units 06:40 06:40 RBC 3.36 L (4.00-5.20) m/cumm Hgb 9.7 L (12.0-15.5) g/dL Hct 31.4 L (36.0-46.0) % MCHC 30.9 L (32.0-36.0) g/dL BUN 21 H (7-18) mg/dL Creatinine 1.27 H (0.55-1.02) mg/dL Glucose 141 H D (70-100) mg/dL Magnesium 1.2 L (1.8-2.4) mg/dL Vital Signs Temperature 36.4 C L 07/04/18 17:08 Temperature Source Tympanic 07/04/18 17:08 Pulse 116 H 07/04/18 17:08 Pulse Rhythm Regular 07/04/18 11:09 Respiratory Rate 20 07/04/18 17:08 Respiratory Effort 07/04/18 11:09 Respiratory Depth Normal 07/04/18 11:09 Respiratory Pattern Normal 07/04/18 11:09 Blood Pressure 148/72 H 07/04/18 17:08 Pulse Oximetry 98 07/04/18 17:08 Oxygen Delivery Method Room Air 07/04/18 17:08 Oxygen Flow Rate 0 07/04/18 17:08 Pain Level 5 07/04/18 11:57 Intake & Output 07/03/18 07/04/18 07/04/18 23:59 11:59 23:59 Intake Total 1056.667 / 3256.930 5571.333 / 1163.333 530 / 530 Output Total 800 / 800 750 / 750 700 / 700 Balance 256.667 / 256.667 413.333 / 413.333 -170 / -170 Weight 104.5 kg Intake: IV 576.667 / 576.667 573.333 / 573.333 50 / 50 Oral 480 / 480 590 / 590 480 / 480 Output: Urine 800 / 800 750 / 750 700 / 700 Other: Urine Color Yellow Yellow Yellow Urine Appearance Clear Clear Clear Urine Odor None Normal None Comment not viewed independent void Stool Size Small Stool Characteristics Soft Formed Voiding Methods Toilet Toilet Toilet Laboratory Results WBC 6.07 k/cumm (4.4-10.8) D 07/04/18 06:40 RBC 3.36 m/cumm (4.00-5.20) L 07/04/18 06:40 Hgb 9.7 g/dL (12.0-15.5) L 07/04/18 06:40 Hct 31.4 % (36.0-46.0) L 07/04/18 06:40 MCV 93.5 fL (80-95) 07/04/18 06:40 MCH 28.9 pg (27.0-33.0) 07/04/18 06:40 MCHC 30.9 g/dL (32.0-36.0) L 07/04/18 06:40 RDW 13.9 % (11.7-14.6) 07/04/18 06:40 Plt Count 353 x1000/uL (130-400) 07/04/18 06:40 MPV 8.9 fL (8.0-11.0) 07/04/18 06:40 Immature Gran % 0.3 07/04/18 06:40 Neutrophils % 65.8 07/04/18 06:40 Lymphocytes % 24.4 12 06:40 Monocytes % 6.8 12 06:40 Eosinophils % 2.5 07/04/18 06:40 Basophils % 0.2 07/04/18 06:40 Absolute Neutrophils 3.99 k/cumm (1.2-6.7) 07/04/18 06:40 Absolute Lymphocytes 1.48 k/cumm (1.2-3.4) 07/04/18 06:40 Absolute Monocytes 0.41 k/cumm (0.11-0.7) 07/04/18 06:40 Absolute Eosinophils 0.15 k/cumm (0.0-0.7) 07/04/18 06:40 Absolute Basophils 0.01 k/cumm (0.0-0.2) 07/04/18 06:40 Sodium 141 mmol/L (136-145) 07/04/18 06:40 Potassium 3.8 mmol/L (3.5-5.1) 07/04/18 06:40 Chloride 104 mmol/L (98-107) 07/04/18 06:40 Carbon Dioxide 29.7 mmol/L (21.0-32.0) 07/04/18 06:40 Anion Gap 7.3 mmol/L (3-11) 07/04/18 06:40 BUN 21 mg/dL (7-18) H 07/04/18 06:40 Creatinine 1.27 mg/dL (0.55-1.02) H 07/04/18 06:40 Estimated GFR/1.73 m2 41.25 (mL/min/1.73m2) 07/04/18 06:40 Glucose 141 mg/dL (70-100) H D 07/04/18 06:40 Calcium 8.7 mg/dL (8.5-10.1) 07/04/18 06:40 Magnesium 1.2 mg/dL (1.8-2.4) L 07/04/18 06:40 Creatine Kinase 46 U/L (26-192) 07/04/18 06:40 Blood cx x 2 pending
[2018-07-04] MEDS: Magnesium Chloride 64 MG TABCR PO (19:54)
[2018-07-04 20:26] VITALS: BP 125/69; PULSE 100; RESP 18; TEMP 36.7; O2SAT 95
[2018-07-04] MEDS: VANCOMYCIN 1,000 MG in Normal Saline 250 ML 166.6666 MG IVPB (22:04)
--- NOTE | 2018-07-04 22:18 | W.PM.PROGNOT ---
Date of Service Date of service: 07/04/18 Time of Service: 15:00 Assessment and Plan (1) Abscess of left hip: Current visit: Yes Status: Acute Dena is a 73yo who continues to have pain. However, she is rather mobile and functional but does report that it hurts. Her CRP is elevated but doesn't have fever or chills. Her exam has not been anything like I'd expect for a septic hip. However, the musculoskeletal radiologists at [facility] do not think any of the fluid collections are ameable to aspiration. From the reading of the MRI, they believe that the hip was infected and then this leaked into the surrounding tissues. Her blood cultures are negative. Since we have no other source and the absceses are unable to be aspirated and the hip aspirate was negative, the only thing left is to wash out the hip, attempt to washout the fluid collections, and send samples for culture. I reviewed this with a few other colleagues who agree that this is a very atypical presentation bt the next best step would be to get some source informaiton. I discussed it with the hospitalist who agrees and is awaiting a call-back from [facility] infectious disease. I discussed the case with Dena and reviewed the risks to include bleeding, persistent infection, pain, worsening arthritis, damage to nerves and vessels, blood clot. Despite these risks she agrees to proceed. Subjective Interval history since last seen: Dena continues to have some pain. She is able to ambulate but does so with pain. She denies any fever or chills. She denies any other new symptoms. Exam Narrative Exam Narrative: LLE is without any erythema, masses or changes to the skin. Pain with ER/IR/flexion of the hip. No pain with ROM of the knee. SILT DP/SP/Tib. Foot WWP. Objective Objective Clinical Data: Abnormal lab results 07/04/18 07/04/18 Range/Units 06:40 06:40 RBC 3.36 L (4.00-5.20) m/cumm Hgb 9.7 L (12.0-15.5) g/dL Hct 31.4 L (36.0-46.0) % MCHC 30.9 L (32.0-36.0) g/dL BUN 21 H (7-18) mg/dL Creatinine 1.27 H (0.55-1.02) mg/dL Glucose 141 H D (70-100) mg/dL Magnesium 1.2 L (1.8-2.4) mg/dL Vital Signs Temperature 36.7 C 07/04/18 20:26 Temperature Source Tympanic 07/04/18 20:26 Pulse 100 H 07/04/18 20:26 Pulse Rhythm Regular 07/04/18 11:09 Respiratory Rate 18 07/04/18 20:26 Respiratory Effort 07/04/18 11:09 Respiratory Depth Normal 07/04/18 11:09 Respiratory Pattern Normal 07/04/18 11:09 Blood Pressure 125/69 07/04/18 20:26 Pulse Oximetry 95 07/04/18 20:26 Oxygen Delivery Method Room Air 07/04/18 20:26 Oxygen Flow Rate 0 07/04/18 20:26 Pain Level 5 07/04/18 11:57 Intake & Output 07/03/18 07/04/18 07/04/18 23:59 11:59 23:59 Intake Total 1056.667 / 1414.727 2645.333 / 1163.333 650 / 650 Output Total 800 / 800 750 / 750 1500 / 1500 Balance 256.667 / 256.667 413.333 / 413.333 -850 / -850 Weight 104.5 kg Intake: IV 576.667 / 576.667 573.333 / 573.333 50 / 50 Oral 480 / 480 590 / 590 600 / 600 Output: Urine 800 / 800 750 / 750 1500 / 1500 Other: Urine Color Yellow Yellow Yellow Urine Appearance Clear Clear Clear Urine Odor None Normal Normal Comment not viewed independent void Stool Size Small Stool Characteristics Soft Formed Voiding Methods Toilet Toilet Toilet Laboratory Results WBC 6.07 k/cumm (4.4-10.8) D 07/04/18 06:40 RBC 3.36 m/cumm (4.00-5.20) L 07/04/18 06:40 Hgb 9.7 g/dL (12.0-15.5) L 07/04/18 06:40 Hct 31.4 % (36.0-46.0) L 07/04/18 06:40 MCV 93.5 fL (80-95) 07/04/18 06:40 MCH 28.9 pg (27.0-33.0) 07/04/18 06:40 MCHC 30.9 g/dL (32.0-36.0) L 07/04/18 06:40 RDW 13.9 % (11.7-14.6) 07/04/18 06:40 Plt Count 353 x1000/uL (130-400) 07/04/18 06:40 MPV 8.9 fL (8.0-11.0) 07/04/18 06:40 Immature Gran % 0.3 07/04/18 06:40 Neutrophils % 65.8 07/04/18 06:40 Lymphocytes % 24.4 07/04/18 06:40 Monocytes % 6.8 07/04/18 06:40 Eosinophils % 2.5 07/04/18 06:40 Basophils % 0.2 07/04/18 06:40 Absolute Neutrophils 3.99 k/cumm (1.2-6.7) 07/04/18 06:40 Absolute Lymphocytes 1.48 k/cumm (1.2-3.4) 07/04/18 06:40 Absolute Monocytes 0.41 k/cumm (0.11-0.7) 07/04/18 06:40 Absolute Eosinophils 0.15 k/cumm (0.0-0.7) 07/04/18 06:40 Absolute Basophils 0.01 k/cumm (0.0-0.2) 07/04/18 06:40 Sodium 141 mmol/L (136-145) 07/04/18 06:40 Potassium 3.8 mmol/L (3.5-5.1) 07/04/18 06:40 Chloride 104 mmol/L (98-107) 07/04/18 06:40 Carbon Dioxide 29.7 mmol/L (21.0-32.0) 07/04/18 06:40 Anion Gap 7.3 mmol/L (3-11) 07/04/18 06:40 BUN 21 mg/dL (7-18) H 07/04/18 06:40 Creatinine 1.27 mg/dL (0.55-1.02) H 07/04/18 06:40 Estimated GFR/1.73 m2 41.25 (mL/min/1.73m2) 07/04/18 06:40 Glucose 141 mg/dL (70-100) H D 07/04/18 06:40 Calcium 8.7 mg/dL (8.5-10.1) 07/04/18 06:40 Magnesium 1.2 mg/dL (1.8-2.4) L 07/04/18 06:40 Creatine Kinase 46 U/L (26-192) 07/04/18 06:40
[2018-07-04] MEDS: Nystatin POWDER 60 GM JAR TP (22:26)
[2018-07-05] VITALS (11 sets, daily range): BP systolic 107–167; BP diastolic 35–76; PULSE 79–117; RESP 12–23; TEMP 35.8–37.9; O2SAT 94–100
[2018-07-05] MEDS: PIPERACILLIN/TAZO 3.375 GM in Normal Saline 50 ML IVPB ×4 (00:33→18:41)
[2018-07-05] MEDS: Acetaminophen 325 MG TAB 650 MG PO ×3 (00:33→19:30)
[2018-07-05 07:48] LABS: Abs Immature Grans 0.02 k/cumm (0.0-0.09); Absolute Basophil Count 0.01 k/cumm (0.0-0.2); Absolute Eosinophil Count 0.12 k/cumm (0.0-0.7); Absolute Lymphocyte Count 1.27 k/cumm (1.2-3.4); Absolute Neutrophil Count 4.88 k/cumm (1.2-6.7); Basophils % 0.1; Eosinophils % 1.8; HCT 31.2 % (36.0-46.0); HGB 9.9 g/dL (12.0-15.5); Immature Grans % 0.3; Lymphocytes % 18.7; Mean Corp. HGB Concentration 31.7 g/dL (32.0-36.0); Mean Corpuscular Hemoglobin 29.5 pg (27.0-33.0); Mean Corpuscular Volume 92.9 fL (80-95); Mean Platelet Volume 8.6 fL (8.0-11.0); Monocytes % 7.4; Neutrophils % 71.7; Platelet Count 363 x1000/uL (130-400); RBC 3.36 m/cumm (4.00-5.20); RBC Distribution Width 13.7 % (11.7-14.6)
[2018-07-05 07:59] LABS: Anion Gap 9.5 mmol/L (3-11); BUN 20 mg/dL (7-18); C-Reactive Protein 5.24 mg/dL (0.0-0.3); CO2 28.5 mmol/L (21.0-32.0); CREATININE 1.14 mg/dL (0.55-1.02); Chloride 102 mmol/L (98-107); Estimated GFR 46.72 (mL/min/1.73m2); Glucose 152 mg/dL (70-100); Potassium 3.6 mmol/L (3.5-5.1); Sodium 140 mmol/L (136-145)
[2018-07-05] MEDS: Nystatin POWDER 60 GM JAR TP ×3 (08:31→21:24)
[2018-07-05] MEDS: Insulin Aspart 300 UNITS/3 ML PEN SC ×2 (08:32→21:25)
[2018-07-05] MEDS: sitaGLIPtin 25 MG TABLET 50 MG PO (08:32)
[2018-07-05] MEDS: Atorvastatin 10 MG TAB PO (08:32)
[2018-07-05] MEDS: Lactobacillus Acidophilus CAP 1 CAP PO ×3 (08:33→19:30)
[2018-07-05] MEDS: Hydrochlorothiazide 25 MG TAB 12.5 MG PO (08:33)
[2018-07-05] MEDS: Magnesium Chloride 64 MG TABCR PO ×2 (08:33→19:30)
--- NOTE | 2018-07-05 10:28 | W.INDIABCONS ---
Date of service: 07/05/18 Time of Service: 10:29 Diabetes Inpatient Consult DESCRIPTION/ASSESSMENT: Appreciate diabetes consult for Dena Madrigal who is hospitalized with an infection scheduled for surgery this afternoon. Dena has type 2 diabetes now managed with Januvia recently changed from Metformin secondary to renal values. She states her blood sugars at home fasting 118-120 range. BMI 46 A1c 6.8 Age 73 years During this hospitalization fasting blood sugar 140s, bedtime blood sugar 211mg/dl taking insulin correction at the sensitive level. She is eating 14-60 grams carbohydrate per meal. The insulin correction appears to be keeping her lbood sugars relatively steady rather than actually correcting blood sugars. Met with Dena who has an understanding that her blood sugars are elevated secondary to pain and medication change. INTERVENTION: Dena has reasonable glycemic control and she voices satisfaction with her blood sugars here. Discussed anticipating being home by herself with a support system of her restorationism family only. Discussed her medication change and awaiting its impact on blood sugars. If blood sugar correction is desired, she may need an insulin:carbohydrate ratio to keep blood sugars closer to her norm and for healing. GIven she is insulin naive suggest sensitive insulin:carbohydrate at 1 unit covers 15 grams carbohydrate initially. PLAN: Will follow blood sugars during hospitalization Will provide support post-surgery as she desires for diabetes self management Time Spent in Nutritional Counseling and Treatment: n/a
--- NOTE | 2018-07-05 10:47 | DM INPTCON_ITS ---
Date of service: 07/05/18 Time of Service: 10:29 Diabetes Inpatient Consult DESCRIPTION/ASSESSMENT: Appreciate diabetes consult for Dena Madrigal who is hospitalized with an infection scheduled for surgery this afternoon. Dena has type 2 diabetes now managed with Januvia recently changed from Metformin secondary to renal values. She states her blood sugars at home fasting 118-120 range. BMI 46 A1c 6.8 Age 73 years During this hospitalization fasting blood sugar 140s, bedtime blood sugar 211mg/ dl taking insulin correction at the sensitive level. She is eating 14-60 grams carbohydrate per meal. The insulin correction appears to be keeping her lbood sugars relatively steady rather than actually correcting blood sugars. Met with Dena who has an understanding that her blood sugars are elevated secondary to pain and medication change. INTERVENTION: Dena has reasonable glycemic control and she voices satisfaction with her blood sugars here. Discussed anticipating being home by herself with a support system of her mandaeism family only. Discussed her medication change and awaiting its impact on blood sugars. If blood sugar correction is desired, she may need an insulin:carbohydrate ratio to keep blood sugars closer to her norm and for healing. GIven she is insulin naive suggest sensitive insulin:carbohydrate at 1 unit covers 15 grams carbohydrate initially. PLAN: Will follow blood sugars during hospitalization Will provide support post-surgery as she desires for diabetes self management Time Spent in Nutritional Counseling and Treatment: n/a
--- NOTE | 2018-07-05 12:18 | PGE_ITS ---
Date of Service Date of service: 07/05/18 Time of Service: 07:16 Assessment and Plan (1) Abscess of left hip: Current visit: Yes Status: Acute Dena is a 73yo who continues to have pain. However, she is rather mobile and functional but does report that it hurts. Her CRP is still elevated and decreased marginally with the antibiotics, but we still don't know what we we're treating. Therefore, I recommend we proceed with hip I&D. I discussed the case with Dena and reviewed the risks to include bleeding, persistent infection, pain, worsening arthritis, damage to nerves and vessels, blood clot. Despite these risks she agrees to proceed. Subjective Patient reports: no new complaints, still having pain and afebrile; denies diarrhea, nausea and vomiting Exam Narrative Exam Narrative: LLE is without any erythema, masses or changes to the skin. Pain with ER/IR/flexion of the hip. No pain with ROM of the knee. SILT DP/SP/ Tib. Foot WWP. Objective Objective Clinical Data: Abnormal lab results 07/05/18 07/05/18 Range/Units 07:30 07:30 RBC 3.36 L (4.00-5.20) m/cumm Hgb 9.9 L (12.0-15.5) g/dL Hct 31.2 L (36.0-46.0) % MCHC 31.7 L (32.0-36.0) g/dL BUN 20 H (7-18) mg/dL Creatinine 1.14 H (0.55-1.02) mg/dL Glucose 152 H (70-100) mg/dL C-Reactive Protein 5.24 H (0.0-0.3) mg/dL Vital Signs Temperature 36.6 C 07/05/18 07:33 Temperature Source Tympanic 07/05/18 07:33 Pulse 79 07/05/18 07:33 Pulse Rhythm Regular 07/05/18 10:42 Respiratory Rate 14 07/05/18 07:33 Respiratory Effort 07/05/18 10:42 Respiratory Depth Normal 07/05/18 10:42 Respiratory Pattern Normal 07/05/18 10:42 Blood Pressure 115/72 07/05/18 07:33 Pulse Oximetry 97 07/05/18 07:33 Oxygen Delivery Method Room Air 07/05/18 07:33 Oxygen Flow Rate 0 07/05/18 07:33 Pain Level 5 07/05/18 07:33 Comment 07/05/18 03:30 Intake & Output 07/04/18 07/05/18 07/05/18 23:59 11:59 23:59 Intake Total 700 / 700 50 / 50 Output Total 1700 / 1700 450 / 450 Balance -1000 / -1000 -400 / -400 Intake: IV 100 / 100 50 / 50 Oral 600 / 600 Output: Urine 1700 / 1700 450 / 450 Other: Urine Color Yellow Yellow Urine Appearance Clear Clear Urine Odor Normal Normal Comment voided X2 for the 450ml Voiding Methods Toilet Toilet Laboratory Results WBC 6.80 k/cumm (4.4-10.8) 07/05/18 07:30 RBC 3.36 m/cumm (4.00-5.20) L 07/05/18 07:30 Hgb 9.9 g/dL (12.0-15.5) L 07/05/18 07:30 Hct 31.2 % (36.0-46.0) L 07/05/18 07:30 MCV 92.9 fL (80-95) 07/05/18 07:30 MCH 29.5 pg (27.0-33.0) 07/05/18 07:30 MCHC 31.7 g/dL (32.0-36.0) L 07/05/18 07:30 RDW 13.7 % (11.7-14.6) 07/05/18 07:30 Plt Count 363 x1000/uL (130-400) 07/05/18 07:30 MPV 8.6 fL (8.0-11.0) 07/05/18 07:30 Immature Gran % 0.3 07/05/18 07:30 Neutrophils % 71.7 07/05/18 07:30 Lymphocytes % 18.7 07/05/18 07:30 Monocytes % 7.4 07/05/18 07:30 Eosinophils % 1.8 07/05/18 07:30 Basophils % 0.1 07/05/18 07:30 Absolute Neutrophils 4.88 k/cumm (1.2-6.7) 07/05/18 07:30 Absolute Lymphocytes 1.27 k/cumm (1.2-3.4) 07/05/18 07:30 Absolute Monocytes 0.50 k/cumm (0.11-0.7) 07/05/18 07:30 Absolute Eosinophils 0.12 k/cumm (0.0-0.7) 07/05/18 07:30 Absolute Basophils 0.01 k/cumm (0.0-0.2) 07/05/18 07:30 Sodium 140 mmol/L (136-145) 07/05/18 07:30 Potassium 3.6 mmol/L (3.5-5.1) 07/05/18 07:30 Chloride 102 mmol/L (98-107) 07/05/18 07:30 Carbon Dioxide 28.5 mmol/L (21.0-32.0) 07/05/18 07:30 Anion Gap 9.5 mmol/L (3-11) 07/05/18 07:30 BUN 20 mg/dL (7-18) H 07/05/18 07:30 Creatinine 1.14 mg/dL (0.55-1.02) H 07/05/18 07:30 Estimated GFR/1.73 m2 46.72 (mL/min/1.73m2) 07/05/18 07:30 Glucose 152 mg/dL (70-100) H 07/05/18 07:30 Calcium 9.0 mg/dL (8.5-10.1) 07/05/18 07:30 Magnesium 2.0 mg/dL (1.8-2.4) 07/05/18 07:30 Creatine Kinase 46 U/L (26-192) 07/04/18 06:40 C-Reactive Protein 5.24 mg/dL (0.0-0.3) H 07/05/18 07:30
[2018-07-05] MEDS: Lactated Ringers 1,000 ML 80 ML IV ×2 (12:48→21:16)
[2018-07-05] MEDS: Bupivacaine 0.25% Pres-Free 30 ML VIAL (13:58)
--- NOTE | 2018-07-05 14:24 | PDOC.CMPRO ---
- If Service Date Differs Date of service: 07/05/18 Time of Service: 14:24 Care Management Progress Note S/O: Dena to go to the OR today for a (L) Hip I&D. She is nervous in regards to this procedure, though states that she feels comfortable with having Dr. Cruz bring her to the OR today. The Hospitalist continues to follow Dena at this time. She had a PICC line placed on 07/04/18 ? length of need of IV antibiotics. A: 73 y/o female admitted 07/03/18 for (L) hip abscesses P: Dena to have an I&D today. Her plan is to return home with no services once medically cleared. Her family will transport her home when ready.
--- NOTE | 2018-07-05 14:56 | CHAPLAIN ---
When I visited with Dena yesterday evening, she said Dr. Cruz would be taking her to the OR today. She was nervous about having a procedure, but said she fully trusts Dr. Cruz and she hopes she will gain some relief from the pain she has been experiencing. Dena talked about being nervous and also said that she knows if something goes wrong, I won't be lonely anymore, referring to her who a few years ago. Dena is a member of the [facility] [employer] [facility] [place] and her crystal grower, Rev. Kolby Johnson was here yesterday with her. She asked me to call and let him know about the surgery. I wasn't able to reach him on his cell phone, or leave a message, so I left a message on the worship phone.
--- NOTE | 2018-07-05 15:30 | NUR.NOTE ---
Nursing Note: still no distal sensation or movement as of this time
[2018-07-05 15:42] LABS: Vancomycin, Trough 9.7 ug/mL (10.0-20.0)
--- NOTE | 2018-07-05 16:17 | ROE_ITS ---
DATE OF PROCEDURE: July 05, 2018 PREOPERATIVE DIAGNOSIS: Left hip abscesses. POSTOPERATIVE DIAGNOSIS: Left hip synovitis. SURGERY: Irrigation and debridement of left hip and left hip soft tissues. SURGEON: Tadeo Cruz M.D. ASSISTING SURGEON: Kana Vega M.D. FINDINGS: There was no gross purulence encountered throughout any parts of the case. The hip joint was exposed from a posterolateral window through the capsule. It showed some synovitis and either necrotic or inflamed tissue off the lateral edge of the acetabulum and the lateral aspect of the hip capsule. However, no intraarticular purulence. No intraarticular abscess was discovered. The hip joint was washed thoroughly, as well as the surrounding soft tissues with normal saline. SPECIMENS: Multiple tissue specimens were sent for microbiology gene analysis as well as a culture. ESTIMATED BLOOD LOSS: 50 cc's. ANESTHESIA: Spinal. COMPLICATIONS: None. DISPOSITION: The patient was awakened from sedation and taken to the PACU in a stable condition. INDICATION FOR PROCEDURE: Dena is a 73-year-old who has presented with persistent left hip pain. She has tried multiple conservative treatment options but continued to have pain. MRI revealed multiple soft tissue fluid collections. It also appeared that the hip had significant synovitis and may have been affected as well. The working diagnosis was infection. However, there was no source. Therefore I offered irrigation and debridement for Dena to debride some of the questionable infection, but also to obtain some tissue cultures for specimens. I discussed the risks of the procedure to include bleeding, infection, pain, stiffness, damage to nerves and vessels, damage to muscles and tendons, weakness, blood clot. Despite these risks, she elected to proceed. PROCEDURE DESCRIPTION: Dena was greeted in the preoperative holding area. Previously in the day her identity was confirmed and site marked, the consent was reviewed and signed, and the history and physical was updated. She was brought back into the operating room. She was seated at the edge of the bed and a spinal anesthetic was administered. After successful administration of the spinal anesthetic, she was placed in the supine position. All bony prominences were well-padded. Light sedation was administered. She was placed into the right lateral decubitus position. An axillary roll was placed under the right axilla. She was then held in a lateral decubitus position with the beanbag. Again all bony prominences, including the fibular head and the elbows were well- padded. A pillow was placed between the right and left legs. She was secured to the table with a seatbelt. Prophylactic antibiotics were held as she has been on regular antibiotics. The left leg was prepped with ChloraPrep and draped in a standard fashion. A time-out was performed for safe surgery. I did have Dr. Kana Vega assisting for the difficulty of this case given the patient's habitus and the obscure diagnosis. A standard longitudinal incision was made overlying the greater trochanter. This was sharply taken down to the skin. Bovie electrocautery was used to dissect down to the subcutaneous fat down towards the lateral femur. There was a significant amount of subcutaneous fat. The IT band and the gluteus fascia were then identified. It was dissected off for good visualization. The IT band was incised sharply and this was extended up into the gluteus fibers. Once this was dissected it was freed from the underlying soft tissues. A Charnley retractor was placed under the IT band. This provided excellent exposure of the lateral femur and the posterior soft tissues. There was a large amount of bursitis and bursal tissue seen overlying the internal and external rotators and the posterior lateral greater trochanter. This was dissected off to expose the conjoined tendon, piriformis tendon and abductor insertions. There was no purulence encountered at any point during this time. A Alvarado elevator was used to elevate the gluteus minimus off of the capsule and a Hohmann retractor was placed across the hip underneath the abductors. At this time we were able to see an area of either necrotic or synovitic tissue. The Hohmann appeared to have penetrated the capsule itself and so it was unclear if this came from within the joint, but it was right at the rim of the acetabulum laterally. This was taken samples and placed in culture containers for culture analysis and microbiological DNA. The posterior capsule was then incised sharply and a wedge of capsule was removed. Some of this was also sent for culture. There was no gross purulence encountered. There was very minimal fluid within the hip joint. The hip was rotated and we made sure that we were inside the joint. There was no cartilage abnormality seen from where we were, but again there was some arthritis of the hip including a lateral acetabular osteophyte. Further tissue in this area was debrided. The piriformis, internal and external rotators were left attached. We then used finger dissection to develop a plane between the soft tissues and the piriformis and obturator internus and externus. We were able to follow this around into the pelvis around by the sciatic notch. There was no gross purulence encountered. We also bluntly dissected within the fibers of quadratus femoris to reach the lesser tuberosity. This was also palpated without any mass effect. We then irrigated within the joint and also within the soft tissues of the hip with three liters of normal saline. Again the tissue appeared healthy without any signs of a gross infection or major pathology. A Davol drain was placed within the hip joint and through the deep soft tissues. The IT band was closed with a running Stratafix suture. The deep tissues were reapproximated with a #0 Vicryl followed by a #2-0 Vicryl and then jose. The soft tissues around the left hip were injected with a mixture of 20 cc's of 0.25% Bupivacaine along with 10 cc's of Exparel. The drain was left out of the skin and tied to the lateral thigh. The wound was dressed with Xeroform, 4x4's, ABD, Medipore tape. At the end of the case all counts were correct. She was transferred back to the hospital bed in a stable condition. She was awakened from sedation and taken to the PACU without notable complications. Multiple specimens were sent for culture and gene analysis.
[2018-07-05] MEDS: VANCOMYCIN 1,000 MG in Normal Saline 250 ML 166.6666 MG IVPB (16:23)
[2018-07-05] MEDS: Normal Saline Flush 10 ML SYR IVP ×3 (17:55→21:42)
[2018-07-05] MEDS: Ketorolac 15 MG/ML VIAL IVP (17:56)
--- NOTE | 2018-07-05 18:08 | NUR.NOTE ---
Nursing Note: Patient started regaining sensation and movement at 1640she was in pain by 1730 she was repositioned and pain medication was given at 1800
--- NOTE | 2018-07-05 18:35 | PGE_ITS ---
Date of Service Date of service: 07/05/18 Time of Service: 17:15 Assessment and Plan (1) Abscess of left hip: Current visit: Yes Status: Acute /septic hip/septic synovitis. S/p I&D today (07/05/18). Organism unknown at this time. Intraoperative cultures are pending. Discussed with [facility]. One of the recommendations made was to keep cultures in the lab longer looking for indolent organisms. Continue vancomycin/zosyn (D3). (2) Diabetes mellitus type 2 in obese: Current visit: No Status: Chronic Continue basal bolus insulin - BG's in range. Continue januvia. (3) Essential hypertension: Current visit: No Status: Chronic No change in tx (4) Hyperlipidemia: Current visit: No Status: Chronic Continue atorvastatin (5) Morbid obesity: Current visit: No Status: Chronic BMI 46 Once able, the patient should be encouraged to make lifestyle modefications (6) Ambulatory dysfunction: Current visit: Yes Status: Acute PT/OT consulted (7) DVT prophylaxis: Current visit: Yes Status: Acute Defer to primary team Subjective Interval history since last seen: Patient is s/p I&D of L hip and L soft tissues today. Post-op diagnosis is L hip synovitis. Cultures are pending. Postoperatively, the patient is in a lot of pain. She denies dizziness, chest pain, shortness of breath, nausea,vomiting. Exam Narrative Exam Narrative: General: obese female, in pain laying in bed HEENT: EOMI, MMM Heart: RRR, no m/r/g Lungs: CTAB GI: abdomen soft, nontender, nondistended Extremities: L hip incision dressed w/ a drain in place - dressing c/d/i; drain with blood and also several particles of cloudy material. Objective Objective Clinical Data: Abnormal lab results 07/05/18 07/05/18 07/05/18 Range/Units 07:30 07:30 15:23 RBC 3.36 L (4.00-5.20) m/cumm Hgb 9.9 L (12.0-15.5) g/dL Hct 31.2 L (36.0-46.0) % MCHC 31.7 L (32.0-36.0) g/dL BUN 20 H (7-18) mg/dL Creatinine 1.14 H (0.55-1.02) mg/dL Glucose 152 H (70-100) mg/dL C-Reactive Protein 5.24 H (0.0-0.3) mg/dL Vancomycin Trough 9.7 L (10.0-20.0) ug/mL Vital Signs Temperature 35.8 C L 07/05/18 15:30 Temperature Source Temporal Artery Scan 07/05/18 15:30 Pulse 83 07/05/18 15:30 Pulse Rhythm Regular 07/05/18 10:42 Respiratory Rate 16 07/05/18 15:30 Respiratory Effort 07/05/18 10:42 Respiratory Depth Normal 07/05/18 10:42 Respiratory Pattern Normal 07/05/18 10:42 Blood Pressure 139/63 07/05/18 15:30 Pulse Oximetry 94 L 07/05/18 15:30 Respiratory End-tidal CO2 36 07/05/18 14:59 Oxygen Delivery Method Room Air 07/05/18 15:30 Oxygen Flow Rate 0 07/05/18 15:30 Pain Level 8 07/05/18 17:56 Comment 07/05/18 03:30 Intake & Output 07/04/18 07/05/18 07/05/18 23:59 11:59 23:59 Intake Total 700 / 700 100 / 100 450 / 450 Output Total 1700 / 1700 450 / 450 390 / 390 Balance -1000 / -1000 -350 / -350 60 / 60 Intake: IV 100 / 100 100 / 100 450 / 450 Oral 600 / 600 Output: Drainage 90 / 90 Left Hip 90 / 90 Urine 1700 / 1700 450 / 450 250 / 250 Estimated Blood Loss 50 / 50 Other: Urine Color Yellow Yellow Pale Urine Appearance Clear Clear Clear Urine Odor Normal Normal None Comment voided X2 for the 450ml sat at the comode no void Emesis Description None Voiding Methods Toilet Toilet Toilet Laboratory Results WBC 6.80 k/cumm (4.4-10.8) 07/05/18 07:30 RBC 3.36 m/cumm (4.00-5.20) L 07/05/18 07:30 Hgb 9.9 g/dL (12.0-15.5) L 07/05/18 07:30 Hct 31.2 % (36.0-46.0) L 07/05/18 07:30 MCV 92.9 fL (80-95) 07/05/18 07:30 MCH 29.5 pg (27.0-33.0) 07/05/18 07:30 MCHC 31.7 g/dL (32.0-36.0) L 07/05/18 07:30 RDW 13.7 % (11.7-14.6) 07/05/18 07:30 Plt Count 363 x1000/uL (130-400) 07/05/18 07:30 MPV 8.6 fL (8.0-11.0) 07/05/18 07:30 Immature Gran % 0.3 07/05/18 07:30 Neutrophils % 71.7 07/05/18 07:30 Lymphocytes % 18.7 07/05/18 07:30 Monocytes % 7.4 07/05/18 07:30 Eosinophils % 1.8 07/05/18 07:30 Basophils % 0.1 07/05/18 07:30 Absolute Neutrophils 4.88 k/cumm (1.2-6.7) 07/05/18 07:30 Absolute Lymphocytes 1.27 k/cumm (1.2-3.4) 07/05/18 07:30 Absolute Monocytes 0.50 k/cumm (0.11-0.7) 07/05/18 07:30 Absolute Eosinophils 0.12 k/cumm (0.0-0.7) 07/05/18 07:30 Absolute Basophils 0.01 k/cumm (0.0-0.2) 07/05/18 07:30 Sodium 140 mmol/L (136-145) 07/05/18 07:30 Potassium 3.6 mmol/L (3.5-5.1) 07/05/18 07:30 Chloride 102 mmol/L (98-107) 07/05/18 07:30 Carbon Dioxide 28.5 mmol/L (21.0-32.0) 07/05/18 07:30 Anion Gap 9.5 mmol/L (3-11) 07/05/18 07:30 BUN 20 mg/dL (7-18) H 07/05/18 07:30 Creatinine 1.14 mg/dL (0.55-1.02) H 07/05/18 07:30 Estimated GFR/1.73 m2 46.72 (mL/min/1.73m2) 07/05/18 07:30 Glucose 152 mg/dL (70-100) H 07/05/18 07:30 Calcium 9.0 mg/dL (8.5-10.1) 07/05/18 07:30 Magnesium 2.0 mg/dL (1.8-2.4) 07/05/18 07:30 Creatine Kinase 46 U/L (26-192) 07/04/18 06:40 C-Reactive Protein 5.24 mg/dL (0.0-0.3) H 07/05/18 07:30 Vancomycin Trough 9.7 ug/mL (10.0-20.0) L 07/05/18 15:23 Blood cultures 07/03/18: NGTD Wound culture pending.
[2018-07-05] MEDS: HYDROmorphone 2 MG/ML VIAL IVP ×2 (19:28→21:42)
[2018-07-05] MEDS: traMADol 50 MG TAB PO (19:30)
[2018-07-06] VITALS (7 sets, daily range): BP systolic 98–136; BP diastolic 44–77; PULSE 87–100; RESP 16–20; TEMP 35.9–37.6; O2SAT 92–98
[2018-07-06] MEDS: PIPERACILLIN/TAZO 3.375 GM in Normal Saline 50 ML IVPB ×5 (00:37→23:29)
[2018-07-06] MEDS: VANCOMYCIN 1,000 MG in Normal Saline 250 ML 250 MG IVPB (03:33)
[2018-07-06] MEDS: Ketorolac 15 MG/ML VIAL IVP ×2 (03:33→22:48)
[2018-07-06] MEDS: traMADol 50 MG TAB PO ×3 (03:33→20:56)
[2018-07-06] MEDS: Acetaminophen 325 MG TAB 650 MG PO (03:33)
[2018-07-06 07:41] LABS: Abs Immature Grans 0.02 k/cumm (0.0-0.09); Absolute Basophil Count 0.01 k/cumm (0.0-0.2); Absolute Lymphocyte Count 1.36 k/cumm (1.2-3.4); Absolute Monocyte Count 0.68 k/cumm (0.11-0.7); Basophils % 0.1; Eosinophils % 1.1; HCT 29.9 % (36.0-46.0); HGB 9.4 g/dL (12.0-15.5); Immature Grans % 0.2; Lymphocytes % 15.2; Mean Corp. HGB Concentration 31.4 g/dL (32.0-36.0); Mean Corpuscular Hemoglobin 29.4 pg (27.0-33.0); Mean Corpuscular Volume 93.4 fL (80-95); Mean Platelet Volume 8.6 fL (8.0-11.0); Monocytes % 7.6; Neutrophils % 75.8; Platelet Count 363 x1000/uL (130-400); White Blood Cell Count 8.92 k/cumm (4.4-10.8)
[2018-07-06 07:42] LABS: Absolute Neutrophil Count 6.76 k/cumm (1.2-6.7)
[2018-07-06 07:51] LABS: Anion Gap 10.8 mmol/L (3-11); BUN 22 mg/dL (7-18); C-Reactive Protein 8.53 mg/dL (0.0-0.3); CO2 27.2 mmol/L (21.0-32.0); CREATININE 1.25 mg/dL (0.55-1.02); Calcium 8.7 mg/dL (8.5-10.1); Chloride 103 mmol/L (98-107); Estimated GFR 42.01 (mL/min/1.73m2); Glucose 151 mg/dL (70-100); Magnesium 1.6 mg/dL (1.8-2.4); Potassium 3.5 mmol/L (3.5-5.1); Sodium 141 mmol/L (136-145)
--- NOTE | 2018-07-06 08:08 | PDOC.CMPRO ---
Care Management Progress Note S/O: Dena was sitting up in her chair when CM met with her she reports ongoing pain but states it is being managed. She shared concerns about returning home as she resides alone. She reported having an Advance Directive and stated her Agent as Marie Rizvi. She reports her stay has been good and the staff has been wonderful. She reports being interested in home services if deemed appropriate. Dena reports being up to the bathroom independently with stand by assist this morning. She shares her understanding for remaining at the hospital at this time is due to concerns for infection and determining need for antibiotic treatment. CM will continue to follow. A: 73 y/o female admitted 07/03/18 for (L) hip abscesses P: Dena continues to be monitored at this time, plan remains for Dena to return home with her new FWW. The Hospitalist continues to follow Dena at this time. She had a PICC line placed on 07/04/18-undetermined duration of IV antibiotics. Her family will transport her home when ready. CM will continue to follow and support discharge planning considerations.
[2018-07-06] MEDS: Insulin Aspart 300 UNITS/3 ML PEN SC ×4 (08:34→20:56)
[2018-07-06] MEDS: Nystatin POWDER 60 GM JAR TP ×3 (08:35→20:41)
[2018-07-06] MEDS: Enoxaparin 40 MG/0.4 ML SYR SC (08:35)
[2018-07-06] MEDS: Potassium Chloride 20 MEQ TABCR 40 MEQ PO (08:35)
[2018-07-06] MEDS: Losartan 50 MG TAB 75 MG PO (08:36)
[2018-07-06] MEDS: Magnesium Chloride 64 MG TABCR PO ×2 (08:36→20:41)
[2018-07-06] MEDS: sitaGLIPtin 25 MG TABLET 50 MG PO (08:36)
[2018-07-06] MEDS: Atorvastatin 10 MG TAB PO (08:36)
[2018-07-06] MEDS: Hydrochlorothiazide 25 MG TAB 12.5 MG PO (08:36)
[2018-07-06] MEDS: Lactobacillus Acidophilus CAP 1 CAP PO ×3 (08:36→20:41)
[2018-07-06] MEDS: MAGNESIUM SULFATE 1 GM/100 ML BAG IVPB (08:37)
--- NOTE | 2018-07-06 12:30 | PGE_ITS ---
Date of Service Date of service: 07/06/18 Time of Service: 10:45 Assessment and Plan (1) Abscess of left hip: Current visit: No Status: Acute (2) Essential hypertension: Current visit: No Status: Chronic (3) Diabetes mellitus type 2 in obese: Current visit: No Status: Chronic (4) Gastroesophageal reflux disease with esophagitis: Current visit: No Status: Acute (5) DVT prophylaxis: Current visit: No Status: Acute (6) Discharge planning issues: Current visit: Yes Status: Acute (7) Hypomagnesemia: Current visit: Yes Status: Acute magnesium 1.6 today, will continue oral supplementation and give 1 gm IV today, follow level and replete as needed. Subjective Patient reports: no new complaints Interval history since last seen: This is a 73 year old female admitted with le ft hip abscess s/p drainage and wash out by orthopedics. Wound and blood cultures have not grown any bacteria to date. Max temp 37.6, is hemodynamically stable. continues to c/o pain in left hip area which is responding to current pain regimen, she reports that it is improving. She is eating and drinking. bowels and bladder functioning, denies diarrhea. she is up and walking with walker. Exam Const General: cooperative, healthy appearing and no acute distress Nutritional Appearance: obese Orientation: alert and oriented x3 HENMT Head: normal to inspection, normocephalic and atraumatic Mouth: oral mucosae normal Resp Effort & Inspection: normal respiratory effort Auscultation: clear to auscultation bilaterally and diminished lung sounds bilaterally in the lower lung velasquez Cardio Rate: regular rate Rhythm: regular rhythm GI Inspection: large pannus and obesity Palpation: soft Auscultation: normal bowel sounds Skin General skin exam: no rashes or lesions noted (bulky left hip dressing and drain intact. no drainage noted. no surrounding erythema. ) Neuro General: alert, awake and oriented x3 Extrem General: edema (upper and lower) Laterality: bilateral Psych Appearance: grossly normal Speech and Movement: speech and movement normal Mood: congruent mood Affect: normal affect Attitude: cooperative Thought Process: normal Thought Content: normal Objective Objective Clinical Data: Abnormal lab results 07/05/18 07/06/18 07/06/18 Range/Units 15:23 07:10 07:10 RBC 3.20 L (4.00-5.20) m/cumm Hgb 9.4 L (12.0-15.5) g/dL Hct 29.9 L (36.0-46.0) % MCHC 31.4 L (32.0-36.0) g/dL Absolute Neutrophils 6.76 H (1.2-6.7) k/cumm BUN 22 H (7-18) mg/dL Creatinine 1.25 H (0.55-1.02) mg/dL Glucose 151 H (70-100) mg/dL Magnesium 1.6 L (1.8-2.4) mg/dL C-Reactive Protein 8.53 H (0.0-0.3) mg/dL Vancomycin Trough 9.7 L (10.0-20.0) ug/mL Vital Signs Temperature 36.2 C L 07/06/18 11:22 Temperature Source Tympanic 07/06/18 11:22 Pulse 93 H 07/06/18 11:22 Pulse Rhythm Regular 07/06/18 11:21 Respiratory Rate 20 07/06/18 11:22 Respiratory Effort 07/06/18 11:21 Respiratory Depth Normal 07/06/18 11:21 Respiratory Pattern Normal 07/06/18 11:21 Blood Pressure 120/44 L 07/06/18 11:22 Pulse Oximetry 97 07/06/18 11:22 Respiratory End-tidal CO2 36 07/05/18 14:59 Oxygen Delivery Method Room Air 07/06/18 11:22 Oxygen Flow Rate 0 07/06/18 11:22 Pain Level 4 07/06/18 11:22 Comment 07/06/18 11:22 Intake & Output 07/05/18 07/06/18 07/06/18 23:59 11:59 23:59 Intake Total 990 / 990 2420 / 2420 181.667 / 181.667 Output Total 390 / 390 590 / 590 Balance 600 / 600 1830 / 1830 181.667 / 181.667 Intake: IV 750 / 750 1150 / 1150 181.667 / 181.667 Oral 240 / 240 1270 / 1270 Output: Drainage / 65 / 65 Left Hip 65 / 65 Urine 250 / 250 525 / 525 Estimated Blood Loss 50 / 50 Other: Urine Color Pale Straw Urine Appearance Clear Clear Urine Odor None None Comment sat at the comode no void UOP commode w bm x 1 Stool Size Small Stool Characteristics Soft Emesis Description None Voiding Methods Toilet Toilet Laboratory Results WBC 8.92 k/cumm (4.4-10.8) D 07/06/18 07:10 RBC 3.20 m/cumm (4.00-5.20) L 07/06/18 07:10 Hgb 9.4 g/dL (12.0-15.5) L 07/06/18 07:10 Hct 29.9 % (36.0-46.0) L 07/06/18 07:10 MCV 93.4 fL (80-95) 07/06/18 07:10 MCH 29.4 pg (27.0-33.0) 07/06/18 07:10 MCHC 31.4 g/dL (32.0-36.0) L 07/06/18 07:10 RDW 14.0 % (11.7-14.6) 07/06/18 07:10 Plt Count 363 x1000/uL (130-400) 07/06/18 07:10 MPV 8.6 fL (8.0-11.0) 07/06/18 07:10 Immature Gran % 0.2 07/06/18 07:10 Neutrophils % 75.8 07/06/18 07:10 Lymphocytes % 15.2 07/06/18 07:10 Monocytes % 7.6 07/06/18 07:10 Eosinophils % 1.1 07/06/18 07:10 Basophils % 0.1 07/06/18 07:10 Absolute Neutrophils 6.76 k/cumm (1.2-6.7) H 07/06/18 07:10 Absolute Lymphocytes 1.36 k/cumm (1.2-3.4) 07/06/18 07:10 Absolute Monocytes 0.68 k/cumm (0.11-0.7) 07/06/18 07:10 Absolute Eosinophils 0.10 k/cumm (0.0-0.7) 07/06/18 07:10 Absolute Basophils 0.01 k/cumm (0.0-0.2) 07/06/18 07:10 Sodium 141 mmol/L (136-145) 07/06/18 07:10 Potassium 3.5 mmol/L (3.5-5.1) 07/06/18 07:10 Chloride 103 mmol/L (98-107) 07/06/18 07:10 Carbon Dioxide 27.2 mmol/L (21.0-32.0) 07/06/18 07:10 Anion Gap 10.8 mmol/L (3-11) 07/06/18 07:10 BUN 22 mg/dL (7-18) H 07/06/18 07:10 Creatinine 1.25 mg/dL (0.55-1.02) H 07/06/18 07:10 Estimated GFR/1.73 m2 42.01 (mL/min/1.73m2) 07/06/18 07:10 Glucose 151 mg/dL (70-100) H 07/06/18 07:10 Calcium 8.7 mg/dL (8.5-10.1) 07/06/18 07:10 Magnesium 1.6 mg/dL (1.8-2.4) L 07/06/18 07:10 Creatine Kinase 46 U/L (26-192) 07/04/18 06:40 C-Reactive Protein 8.53 mg/dL (0.0-0.3) H 07/06/18 07:10 Vancomycin Trough 9.7 ug/mL (10.0-20.0) L 07/05/18 15:23
--- NOTE | 2018-07-06 13:05 | PHARADMIT ---
Addendum entered by Flakita Briceno 07/14/18 09:10: Pharmacy Note Subjective Objective No VS or labs FSBG-162 weight-110.2(down) Assessment cipro continues (day 7 starting this evening) no med changes Plan watch for CRP on tomorrow Original Note: Addendum entered by Flakita Briceno 07/13/18 11:38: Pharmacy Note Subjective Objective HR-92 other VS okay SCr-1.17(up) h/h-9.0/29.1(up) FSBG-128 Assessment cipro continues (day 6 starting this evening) no med changes Plan watch for CRP on Sunday, depending on results may discharge home or transfer to [facility] Original Note: Addendum entered by Beronica Alejandra 07/12/18 12:06: Pharmacy Note Subjective recovering from surgery, ambulating better Objective pain 3/10, vs ok, SCr stable, K 3.7, Mag 1.5 Assessment mag and Kcl boluses ordered, no other med changes noted Plan Plan for labs(CRP) Sunday and depending on results either discharge home or transfer to [facility] Original Note: Addendum entered by Roc Garcia III 07/11/18 14:16: Pharmacy Note Subjective c-reactive protein-6.04 (up). Dr Estrada to re-evaluate on Sunday to decide whether she needs to go to [facility] for hip removal and spacer placement. Today she is ambulating and feeling better. Objective VS-OK Pain: 3/10 K+3.6 Mag-1.7 SCr, H&H,Plts,WBC-OK, Wgt-112.3 kg BM yesterday. Assessment Receiving IV Mag 1gm, On PO Cipro 500mg BID x 6 weeks, surgical culture growing pseudomonas HOme meds restarted Losartan HCTZ, & Januvia Plan Plan swing bed vs go home vs transfer to [facility]............ Original Note: Addendum entered by Beronica Alejandra 07/10/18 12:15: Pharmacy Note Subjective May either be discharged home tomorrow or switched to swingbed due to weakness and there are stairs to get into home Objective SCr trending down, Mag 1.4, Cipro PO continues Assessment Mag bolus and BEULAH dose ordered, KCl bolus orderd, losartan restarted Plan watch for repeat Mag and K labs, Original Note: Addendum entered by Flakita Briceno 07/09/18 13:59: Pharmacy Note Subjective improving per morning report Objective BP-150/81 other VS okay weight-114.1(up) SCr-1.10(down) mag-1.7(up) h/h-7.7/25.2(down) CRP-5.71(down) Assessment zosyn and vanco changed to PO cipro (day 2) due to culture results/[facility] ID recommendation (surgical culture grew pseudomonas) hydrochlorothiazide restarted, losartan and januvia still on hold IV mag replacement ordered today Plan will likely require 6 weeks of abx per progress note possible discharge home tomorrow Original Note: Addendum entered by Roc Garcia III 07/07/18 10:37: Pharmacy Note Subjective MD for no purulence during washout, not sure what the pain in hip is from. Cultures shows rare growth of Gram Neg Heron. Objective VS-OK SCr-1.96 (CrCl~ 18.3mL/min) Temp-37.6C WBC-7.25 Pain: 5/10 H&H-8.1/25.8 Lytes/Plts-OK Assessment Due to worsening renl function: adjusted ABX: Zosyn 2.25mg iv q6hr, Vanco 750mg IV q24hrs Holding HCTZ,Losartan & Januvia due to renal. Plan MD was awaiting culture to narrow ABX. Original Note: Admission Pharmacy Clinical Review L Hip Abscess (went to OR for washout) Code Status Full Code Current Weight Wgt- 104.5 kg Renally Cleared and Narrow Therapeutic Index Meds CrCl~ 28.7 mL/min Meds-OK QTc Value / Action Taken QTc-442 na BP Control, Fever BP-120/44 Tmax- 37.9C Electrolytes reviewed Na- 141 K+3.5 Mag-1.6 DVT Prophylaxis Lovenox Opiate Usage / Scheduled Bowel Regimen Ordered Yes No Plt/SCr for Heparin / Enoxaparin Plts-363 SCr-1.2 INR for Warfarin na H/H stable, WBC/Bands H&H- 9./29.9 WBC- 8.92 Antibiotic appropriateness Vancomycin, Zosyn Cultures and Sensitivities Blood-no growth x 48hrs, surgical culture-gram neg heron Surgical ABX d/c within 24 hr na DM control / Insulin Dosing BG- 151 Januvia, Aspart, Heart Failure (Check EF%) (ROLANDO's, B-Block, Diuretics) Losartan, HCTZ IV to PO Switch No Home Meds Reviewed Yes Home Meds Not Ordered Celebrex, Metformin Comments RCRP-8.53, Vanco trough-9.7
[2018-07-06] MEDS: Lactated Ringers 1,000 ML 100 ML IV (13:16)
[2018-07-06] MEDS: Potassium Chloride 10 MEQ TABCR PO (16:11)
[2018-07-06] MEDS: VANCOMYCIN 1,000 MG in Normal Saline 250 ML 166.67 MG IVPB (16:12)
--- NOTE | 2018-07-06 17:03 | NUR.NOTE ---
arm dimensions on the picc line are near the same as reported by previous shift. The patient expressed concern today about not being discharged too early, as she is not sure how she would be able to care for hersel, since she lives alone. i promised i would leave a note for care mgt. Nursing Note:
--- NOTE | 2018-07-06 17:05 | NUR.NOTE ---
Nursing Note: Dressing on the hip remains clean , dry, intact, the davol drain does not seem to be pulling any suction
--- NOTE | 2018-07-06 22:35 | W.PM.PROGNOT ---
Date of Service Date of service: 07/06/18 Time of Service: 07:35 Assessment and Plan (1) Abscess of left hip: Current visit: No Status: Acute Dena is a 73yo s/p I&D of left hip. The drain seems to not be holding suction very well but it's working so we'll leave it until tomorrow. Awaiting cultures although the early culture results show a GNR. Awaiting DNA analysis. Continue with current antibiotic regimen but likely narrow once cultures have additional information. WBAT LLE. Subjective Interval history since last seen: Dena had some pain last night. It is controlled with the current regimen. She has been up to the bathroom. The drain put out 50cc of sanguinous discharge overnight but is not holding very good suction per nursing. No fever or chills. Exam Narrative Exam Narrative: LLE incision is intact. Dressings are saturated with sanguinous discharge and these were changed. The drain had backed out some from where it was left and this was making it difficult to hold suction. No erythema. No ecchymosis. Objective Objective Clinical Data: Abnormal lab results 07/06/18 07/06/18 Range/Units 07:10 07:10 RBC 3.20 L (4.00-5.20) m/cumm Hgb 9.4 L (12.0-15.5) g/dL Hct 29.9 L (36.0-46.0) % MCHC 31.4 L (32.0-36.0) g/dL Absolute Neutrophils 6.76 H (1.2-6.7) k/cumm BUN 22 H (7-18) mg/dL Creatinine 1.25 H (0.55-1.02) mg/dL Glucose 151 H (70-100) mg/dL Magnesium 1.6 L (1.8-2.4) mg/dL C-Reactive Protein 8.53 H (0.0-0.3) mg/dL Vital Signs Temperature 37.4 C 07/06/18 19:59 Temperature Source Tympanic 07/06/18 19:59 Pulse 100 H 07/06/18 19:59 Pulse Rhythm Regular 07/06/18 21:39 Respiratory Rate 18 07/06/18 19:59 Respiratory Effort Non-Labored 07/06/18 21:39 Respiratory Depth Normal 07/06/18 21:39 Respiratory Pattern Normal 07/06/18 21:39 Blood Pressure 125/77 07/06/18 19:59 Pulse Oximetry 97 07/06/18 19:59 Respiratory End-tidal CO2 36 07/05/18 14:59 Oxygen Delivery Method Room Air 07/06/18 19:59 Oxygen Flow Rate 0 07/06/18 19:59 Pain Level 3 07/06/18 20:56 Comment 07/06/18 11:22 Intake & Output 07/05/18 07/06/18 07/06/18 23:59 11:59 23:59 Intake Total 990 / 990 2420 / 2420 1073.334 / 1073.334 Output Total 390 / 390 590 / 590 655 / 655 Balance 600 / 600 1830 / 1830 418.334 / 418.334 Intake: IV 750 / 750 1150 / 1150 823.334 / 823.334 Oral 240 / 240 1270 / 1270 250 / 250 Output: Drainage 90 / 90 65 / 65 5 / 5 Left Hip 90 / 90 65 / 65 5 / 5 Urine 250 / 250 525 / 525 650 / 650 Estimated Blood Loss 50 / 50 Other: Urine Color Pale Straw Yellow Urine Appearance Clear Clear Urine Odor None None Comment sat at the comode no void UOP commode w bm x 1 Stool Size Small Large Stool Characteristics Soft Formed Emesis Description None Voiding Methods Toilet Toilet Toilet Laboratory Results WBC 8.92 k/cumm (4.4-10.8) D 07/06/18 07:10 RBC 3.20 m/cumm (4.00-5.20) L 07/06/18 07:10 Hgb 9.4 g/dL (12.0-15.5) L 07/06/18 07:10 Hct 29.9 % (36.0-46.0) L 07/06/18 07:10 MCV 93.4 fL (80-95) 07/06/18 07:10 MCH 29.4 pg (27.0-33.0) 07/06/18 07:10 MCHC 31.4 g/dL (32.0-36.0) L 07/06/18 07:10 RDW 14.0 % (11.7-14.6) 07/06/18 07:10 Plt Count 363 x1000/uL (130-400) 07/06/18 07:10 MPV 8.6 fL (8.0-11.0) 07/06/18 07:10 Immature Gran % 0.2 07/06/18 07:10 Neutrophils % 75.8 07/06/18 07:10 Lymphocytes % 15.2 07/06/18 07:10 Monocytes % 7.6 07/06/18 07:10 Eosinophils % 1.1 07/06/18 07:10 Basophils % 0.1 07/06/18 07:10 Absolute Neutrophils 6.76 k/cumm (1.2-6.7) H 07/06/18 07:10 Absolute Lymphocytes 1.36 k/cumm (1.2-3.4) 07/06/18 07:10 Absolute Monocytes 0.68 k/cumm (0.11-0.7) 07/06/18 07:10 Absolute Eosinophils 0.10 k/cumm (0.0-0.7) 07/06/18 07:10 Absolute Basophils 0.01 k/cumm (0.0-0.2) 07/06/18 07:10 Sodium 141 mmol/L (136-145) 07/06/18 07:10 Potassium 3.5 mmol/L (3.5-5.1) 07/06/18 07:10 Chloride 103 mmol/L (98-107) 07/06/18 07:10 Carbon Dioxide 27.2 mmol/L (21.0-32.0) 07/06/18 07:10 Anion Gap 10.8 mmol/L (3-11) 07/06/18 07:10 BUN 22 mg/dL (7-18) H 07/06/18 07:10 Creatinine 1.25 mg/dL (0.55-1.02) H 07/06/18 07:10 Estimated GFR/1.73 m2 42.01 (mL/min/1.73m2) 07/06/18 07:10 Glucose 151 mg/dL (70-100) H 07/06/18 07:10 Calcium 8.7 mg/dL (8.5-10.1) 07/06/18 07:10 Magnesium 1.6 mg/dL (1.8-2.4) L 07/06/18 07:10 Creatine Kinase 46 U/L (26-192) 07/04/18 06:40 C-Reactive Protein 8.53 mg/dL (0.0-0.3) H 07/06/18 07:10 Vancomycin Trough 9.7 ug/mL (10.0-20.0) L 07/05/18 15:23
[2018-07-07] MEDS: Lactated Ringers 1,000 ML 100 ML IV (01:03)
[2018-07-07 03:57] VITALS: BP 112/69; PULSE 83; RESP 18; TEMP 36.7; O2SAT 97
[2018-07-07] MEDS: VANCOMYCIN 1,000 MG in Normal Saline 250 ML 166.67 MG IVPB (03:58)
[2018-07-07] MEDS: PIPERACILLIN/TAZO 3.375 GM in Normal Saline 50 ML IVPB (05:44)
[2018-07-07] MEDS: Normal Saline Flush 10 ML SYR IVP (06:19)
[2018-07-07 07:12] LABS: Abs Immature Grans 0.02 k/cumm (0.0-0.09); Absolute Basophil Count 0.02 k/cumm (0.0-0.2); Absolute Eosinophil Count 0.19 k/cumm (0.0-0.7); Absolute Lymphocyte Count 0.99 k/cumm (1.2-3.4); Absolute Neutrophil Count 5.43 k/cumm (1.2-6.7); Basophils % 0.3; Eosinophils % 2.6; HCT 25.8 % (36.0-46.0); HGB 8.1 g/dL (12.0-15.5); Immature Grans % 0.3; Lymphocytes % 13.7; Mean Corp. HGB Concentration 31.4 g/dL (32.0-36.0); Mean Corpuscular Hemoglobin 29.5 pg (27.0-33.0); Mean Corpuscular Volume 93.8 fL (80-95); Mean Platelet Volume 8.9 fL (8.0-11.0); Monocytes % 8.3; Neutrophils % 74.8; Platelet Count 310 x1000/uL (130-400); RBC 2.75 m/cumm (4.00-5.20); White Blood Cell Count 7.25 k/cumm (4.4-10.8)
[2018-07-07 07:17] LABS: Anion Gap 9.6 mmol/L (3-11); BUN 29 mg/dL (7-18); CO2 26.4 mmol/L (21.0-32.0); CREATININE 1.96 mg/dL (0.55-1.02); Calcium 8.2 mg/dL (8.5-10.1); Chloride 104 mmol/L (98-107); Glucose 132 mg/dL (70-100); Magnesium 1.7 mg/dL (1.8-2.4); Potassium 3.8 mmol/L (3.5-5.1); Sodium 140 mmol/L (136-145)
[2018-07-07 07:36] VITALS: BP 125/57; PULSE 88; RESP 20; TEMP 37.6; O2SAT 98
--- NOTE | 2018-07-07 08:00 | PDOC.CMPRO ---
Care Management Progress Note S/O: Dena was sitting up in her chair when CM met with her she reports feeling nervous and scared as she is unsure of what her hospital course will consist of currently. She shared concerns about returning home as she resides alone as well as concern over jose becoming itchy over time. CM reasurred Dena that we would work together on discharge planning, once MD notified of discharge planning needs. Dena reported appreciation at being able to process her concerns. CM will continue to follow. A: 73 y/o female admitted 07/03/18 for (L) hip abscesses P: Dena continues to be monitored at this time, plan remains for Dena to return home with her new FWW with possible home services when ready per MD. The Hospitalist continues to follow Dena at this time. She had a PICC line placed on 07/04/18-undetermined duration of IV antibiotics. Her family will transport her home when ready. CM will continue to follow and support discharge planning considerations.
[2018-07-07] MEDS: Heparin 5,000 UNITS/ML VIAL 5000 UNITS SC ×3 (08:18→23:47)
[2018-07-07] MEDS: Insulin Aspart 300 UNITS/3 ML PEN SC ×4 (08:19→21:47)
[2018-07-07] MEDS: Magnesium Oxide 400 MG TAB PO (08:19)
[2018-07-07] MEDS: Acetaminophen 325 MG TAB 650 MG PO ×2 (08:19→21:54)
[2018-07-07] MEDS: Potassium Chloride 20 MEQ TABCR PO (08:19)
[2018-07-07] MEDS: Nystatin POWDER 60 GM JAR TP ×2 (08:20→19:42)
[2018-07-07] MEDS: Magnesium Chloride 64 MG TABCR PO ×2 (08:20→19:42)
[2018-07-07] MEDS: Lactobacillus Acidophilus CAP 1 CAP PO ×3 (08:21→19:42)
[2018-07-07] MEDS: Atorvastatin 10 MG TAB PO (08:21)
[2018-07-07] MEDS: PIPERACILLIN/TAZO 2.25 GM in Normal Saline 50 ML IVPB ×3 (12:18→23:46)
[2018-07-07] MEDS: Normal Saline 500 ML 200 ML IV (12:18)
[2018-07-07 13:05] VITALS: BP 133/67; PULSE 88; RESP 20; TEMP 37.1; O2SAT 97
--- NOTE | 2018-07-07 13:30 | W.PM.PROGNOT ---
Date of Service Date of service: 07/07/18 Time of Service: 13:31 Assessment and Plan (1) Abscess of left hip: Current visit: No Status: Acute continue antibiotics and dressing changes per orthopedics. awaiting final ID and sensitivities on surgical culture. blood cultures have been negative to date (2) Essential hypertension: Current visit: No Status: Chronic blood pressures have been stable but due to DOLLY HCTZ and losartan placed on hold (3) Diabetes mellitus type 2 in obese: Current visit: No Status: Chronic will continue with sliding scale coverage as needed AC/HS. Januvia placed on hold d/t DOLLY (4) Gastroesophageal reflux disease with esophagitis: Current visit: No Status: Acute stable, (5) DVT prophylaxis: Current visit: No Status: Acute heparin in place of enoxaparin (6) Discharge planning issues: Current visit: Yes Status: Acute case management following, anticipate discharge to home vs Swing level care when medically stable. (7) Hypomagnesemia: Current visit: Yes Status: Acute magnesium 1.7 today, will continue oral supplementation and give 1 gm IV today, follow level and replete as needed. (8) Acute on chronic renal failure: Current visit: Yes Status: Acute creatinine from 1.25 to 1.96 overnight. HCTZ, lorsartan, and januvia placed on hold. Toradol discontinued. all medications renally dosed, enoxaparin discontinued, started on heparin for DVT prophylaxis. Receiving gentle IV fluids overnight. will closely follow renal functions and electrolytes. Subjective Patient reports: no new complaints Interval history since last seen: This is a 73 year old female admitted with left hip abscess s/p drainage and wash out by orthopedics. blood cultures have not grown any bacteria to date, surgical wound culture growing gram negative rods, ID and sensitivities pending. Max temp overnight 37.6, is hemodynamically stable with no fevers. continues to c/o pain in left hip area which is responding to current pain regimen, she reports that it is improving. She is eating and drinking. bowels and bladder functioning, she states she has not have a BM today but is passing flatus, denies diarrhea or constipation. she is up and walking with walker. overnight creatinine elevated from 1.25 to 1.96. Her hemovac fell out overnight. Exam Const General: cooperative, healthy appearing and no acute distress Nutritional Appearance: obese Orientation: alert and oriented x3 HENMT Head: normal to inspection, normocephalic and atraumatic Mouth: oral mucosae normal Resp Effort & Inspection: normal respiratory effort Auscultation: clear to auscultation bilaterally and diminished lung sounds bilaterally Cardio Rate: regular rate Rhythm: regular rhythm GI Inspection: large pannus and obesity Palpation: soft Auscultation: normal bowel sounds Skin General skin exam: no rashes or lesions noted (bulky left hip dressing drain intact. no drainage noted. no surrounding erythema. hemovac no longer intact) Neuro General: alert, awake and oriented x3 Extrem General: edema (upper and lower) Laterality: bilateral Psych Appearance: grossly normal Speech and Movement: speech and movement normal Mood: congruent mood Affect: normal affect Attitude: cooperative Thought Process: normal Thought Content: normal Objective Objective Clinical Data: Abnormal lab results 07/07/18 07/07/18 Range/Units 06:20 06:20 RBC 2.75 L (4.00-5.20) m/cumm Hgb 8.1 L (12.0-15.5) g/dL Hct 25.8 L (36.0-46.0) % MCHC 31.4 L (32.0-36.0) g/dL Absolute Lymphocytes 0.99 L (1.2-3.4) k/cumm BUN 29 H (7-18) mg/dL Creatinine 1.96 H D (0.55-1.02) mg/dL Glucose 132 H (70-100) mg/dL Calcium 8.2 L (8.5-10.1) mg/dL Magnesium 1.7 L (1.8-2.4) mg/dL Vital Signs Temperature 37.6 C H 07/07/18 07:36 Temperature Source Tympanic 07/07/18 07:36 Pulse 88 07/07/18 07:36 Pulse Rhythm Regular 07/07/18 11:50 Respiratory Rate 20 07/07/18 07:36 Respiratory Effort Non-Labored 07/07/18 11:50 Respiratory Depth Normal 07/07/18 11:50 Respiratory Pattern Normal 07/07/18 11:50 Blood Pressure 125/57 L 07/07/18 07:36 Pulse Oximetry 98 07/07/18 07:36 Respiratory End-tidal CO2 36 07/05/18 14:59 Oxygen Delivery Method Room Air 07/07/18 07:36 Oxygen Flow Rate 0 07/07/18 07:36 Pain Level 5 07/07/18 08:19 Comment 07/06/18 11:22 Intake & Output 07/06/18 07/07/18 07/07/18 23:59 11:59 23:59 Intake Total 1123.334 / 0122.341 1603 / 1250 240 / 240 Output Total 715 / 715 300 / 300 Balance 408.334 / 408.334 950 / 950 240 / 240 Intake: IV 873.334 / 873.334 930 / 930 Oral 250 / 250 320 / 320 240 / 240 Output: Drainage 5 / 5 Left Hip 5 / 5 Urine 710 / 710 300 / 300 Other: Urine Color Yellow Yellow Urine Appearance Clear Clear Urine Odor Normal Stool Size Large Moderate Stool Characteristics Formed Soft Formed Voiding Methods Toilet Toilet Laboratory Results WBC 7.25 k/cumm (4.4-10.8) 07/07/18 06:20 RBC 2.75 m/cumm (4.00-5.20) L 07/07/18 06:20 Hgb 8.1 g/dL (12.0-15.5) L 07/07/18 06:20 Hct 25.8 % (36.0-46.0) L 07/07/18 06:20 MCV 93.8 fL (80-95) 07/07/18 06:20 MCH 29.5 pg (27.0-33.0) 07/07/18 06:20 MCHC 31.4 g/dL (32.0-36.0) L 07/07/18 06:20 RDW 14.0 % (11.7-14.6) 07/07/18 06:20 Plt Count 310 x1000/uL (130-400) 07/07/18 06:20 MPV 8.9 fL (8.0-11.0) 07/07/18 06:20 Immature Gran % 0.3 07/07/18 06:20 Neutrophils % 74.8 07/07/18 06:20 Lymphocytes % 13.7 07/07/18 06:20 Monocytes % 8.3 07/07/18 06:20 Eosinophils % 2.6 07/07/18 06:20 Basophils % 0.3 07/07/18 06:20 Absolute Neutrophils 5.43 k/cumm (1.2-6.7) 07/07/18 06:20 Absolute Lymphocytes 0.99 k/cumm (1.2-3.4) L 07/07/18 06:20 Absolute Monocytes 0.60 k/cumm (0.11-0.7) 07/07/18 06:20 Absolute Eosinophils 0.19 k/cumm (0.0-0.7) 07/07/18 06:20 Absolute Basophils 0.02 k/cumm (0.0-0.2) 07/07/18 06:20 Sodium 140 mmol/L (136-145) 07/07/18 06:20 Potassium 3.8 mmol/L (3.5-5.1) 07/07/18 06:20 Chloride 104 mmol/L (98-107) 07/07/18 06:20 Carbon Dioxide 26.4 mmol/L (21.0-32.0) 07/07/18 06:20 Anion Gap 9.6 mmol/L (3-11) 07/07/18 06:20 BUN 29 mg/dL (7-18) H 07/07/18 06:20 Creatinine 1.96 mg/dL (0.55-1.02) H D 07/07/18 06:20 Estimated GFR/1.73 m2 25.00 (mL/min/1.73m2) 07/07/18 06:20 Glucose 132 mg/dL (70-100) H 07/07/18 06:20 Calcium 8.2 mg/dL (8.5-10.1) L 07/07/18 06:20 Magnesium 1.7 mg/dL (1.8-2.4) L 07/07/18 06:20 Creatine Kinase 46 U/L (26-192) 07/04/18 06:40 C-Reactive Protein 8.53 mg/dL (0.0-0.3) H 07/06/18 07:10 Vancomycin Trough 9.7 ug/mL (10.0-20.0) L 07/05/18 15:23
[2018-07-07] MEDS: Normal Saline 1,000 ML 80 ML IV (13:36)
[2018-07-07 15:32] VITALS: BP 95/56; PULSE 91; RESP 18; TEMP 37.1; O2SAT 99
[2018-07-07] MEDS: traMADol 50 MG TAB PO (19:42)
[2018-07-07 19:50] VITALS: BP 129/71; PULSE 103; RESP 17; TEMP 37.3; O2SAT 96
[2018-07-07 23:15] VITALS: BP 113/70; PULSE 89; RESP 18; TEMP 37; O2SAT 95
[2018-07-08] MEDS: Normal Saline 1,000 ML 80 ML IV ×2 (00:51→16:36)
[2018-07-08] MEDS: Acetaminophen 325 MG TAB 650 MG PO ×2 (04:13→16:45)
[2018-07-08 05:11] VITALS: BP 152/68; PULSE 98; RESP 20; TEMP 36.9; O2SAT 97
[2018-07-08] MEDS: PIPERACILLIN/TAZO 2.25 GM in Normal Saline 50 ML IVPB ×2 (05:51→11:30)
[2018-07-08 07:04] LABS: Abs Immature Grans 0.02 k/cumm (0.0-0.09); Absolute Basophil Count 0.02 k/cumm (0.0-0.2); Absolute Lymphocyte Count 0.98 k/cumm (1.2-3.4); Absolute Neutrophil Count 3.97 k/cumm (1.2-6.7); Basophils % 0.4; Eosinophils % 3.5; HCT 25.5 % (36.0-46.0); HGB 7.9 g/dL (12.0-15.5); Immature Grans % 0.4; Lymphocytes % 17.2; Mean Corpuscular Hemoglobin 29.3 pg (27.0-33.0); Mean Corpuscular Volume 94.4 fL (80-95); Mean Platelet Volume 8.7 fL (8.0-11.0); Monocytes % 8.8; Neutrophils % 69.7; Platelet Count 308 x1000/uL (130-400); RBC Distribution Width 13.8 % (11.7-14.6); White Blood Cell Count 5.69 k/cumm (4.4-10.8)
[2018-07-08 07:05] VITALS: BP 131/70; PULSE 81; RESP 16; TEMP 36.6; O2SAT 97
[2018-07-08 07:20] LABS: Anion Gap 8.2 mmol/L (3-11); BUN 22 mg/dL (7-18); C-Reactive Protein 8.98 mg/dL (0.0-0.3); CO2 27.8 mmol/L (21.0-32.0); CREATININE 1.43 mg/dL (0.55-1.02); Calcium 8.5 mg/dL (8.5-10.1); Chloride 105 mmol/L (98-107); Estimated GFR 35.97 (mL/min/1.73m2); Glucose 117 mg/dL (70-100); Magnesium 1.6 mg/dL (1.8-2.4); Sodium 141 mmol/L (136-145)
[2018-07-08] MEDS: MAGNESIUM SULFATE 2 GM/50 ML BAG IVPB (09:04)
[2018-07-08] MEDS: Heparin 5,000 UNITS/ML VIAL 5000 UNITS SC ×2 (09:04→16:36)
[2018-07-08] MEDS: Magnesium Chloride 64 MG TABCR PO ×2 (09:06→19:34)
[2018-07-08] MEDS: Atorvastatin 10 MG TAB PO (09:06)
[2018-07-08] MEDS: Lactobacillus Acidophilus CAP 1 CAP PO ×3 (09:06→19:34)
[2018-07-08] MEDS: Nystatin POWDER 60 GM JAR TP ×3 (09:09→19:34)
[2018-07-08] MEDS: traMADol 50 MG TAB PO ×2 (09:09→21:55)
[2018-07-08 10:53] LABS: Lyme Ab w Rflx to Lyme Confirm Negative
[2018-07-08 11:24] VITALS: BP 178/76; PULSE 88; RESP 18; TEMP 36.7; O2SAT 97
[2018-07-08] MEDS: Insulin Aspart 300 UNITS/3 ML PEN SC ×3 (12:15→21:44)
--- NOTE | 2018-07-08 13:47 | PGE_ITS ---
Date of Service Date of service: 07/08/18 Time of Service: 13:46 Assessment and Plan (1) Abscess of left hip: Current visit: Yes Status: Acute Dena is now status post irrigation and debridement of her left hip and soft tissues around the left hip. While the intraoperative findings were not overwhelming she has started growing Pseudomonas. This is a very unusual infection. I am awaiting the gene analysis of the tissue sample. Nevertheless , I do think we can discontinue her bank and Zosyn. I did discuss the case with Dr. Still at [facility] with infectious disease. He recommended ciprofloxacin 500 mg twice daily. We can start this orally. We do need to monitor her progress to make sure the CRP starts to trend in the right direction. I have encouraged Dena to continue to work with physical therapy on gaining strength and independence with transfers so we may be able to go home. Unfortunately, at this point, she may need a longer rehabilitation stay. We will continue to follow CBC, BMP, and CRP. If the CRP does not improve, then I would recommend repeat MRI looking for secondary fluid collections. Subjective Interval history since last seen: Dena continues have pain of the left hip. She has been able to mobilize and was able to get up to the nurses station. She has been relatively independent with transfers in the room. She has been able to void and have a bowel movement. She denies any fevers or chills. Intraoperative cultures are now growing Pseudomonas. She has been on broad- spectrum antibiotics. She did have a worsening of her creatinine which has improved with the discontinuation of some of the nephrotoxic medications and re- dosing of her antibiotics. Exam Narrative Exam Narrative: Evaluation of the left hip shows some sanguinous discharge to the left hip dressing. The surrounding tissues do not show any signs of erythema. There is some swelling to the area. No significant ecchymosis. She tolerates internal and external rotation hip without any significant difficulty. She does have pain with active hip flexion and hip abduction. Objective Objective Clinical Data: Abnormal lab results 07/08/18 07/08/18 Range/Units 06:30 06:30 RBC 2.70 L (4.00-5.20) m/cumm Hgb 7.9 L (12.0-15.5) g/dL Hct 25.5 L (36.0-46.0) % MCHC 31.0 L (32.0-36.0) g/dL Absolute Lymphocytes 0.98 L (1.2-3.4) k/cumm BUN 22 H D (7-18) mg/dL Creatinine 1.43 H (0.55-1.02) mg/dL Glucose 117 H (70-100) mg/dL Magnesium 1.6 L (1.8-2.4) mg/dL C-Reactive Protein 8.98 H (0.0-0.3) mg/dL Vital Signs Temperature 36.7 C 07/08/18 11:24 Temperature Source Tympanic 07/08/18 11:24 Pulse 88 07/08/18 11:24 Pulse Rhythm Regular 07/08/18 10:20 Respiratory Rate 18 07/08/18 11:24 Respiratory Effort Non-Labored 07/08/18 10:20 Respiratory Depth Normal 07/08/18 10:20 Respiratory Pattern Normal 07/08/18 10:20 Blood Pressure 178/76 H 07/08/18 11:24 Pulse Oximetry 97 07/08/18 11:24 Respiratory End-tidal CO2 36 07/05/18 14:59 Oxygen Delivery Method Room Air 07/08/18 11:24 Oxygen Flow Rate 0 07/08/18 11:24 Pain Level 2 07/08/18 11:24 Comment 07/07/18 19:50 Intake & Output 07/07/18 07/08/18 07/08/18 23:59 11:59 23:59 Intake Total 1442.667 / 2526.161 5879.333 / 1219.333 Output Total 900 / 900 500 / 500 Balance 542.667 / 542.667 719.333 / 719.333 Intake: IV 962.667 / 962.667 979.333 / 979.333 Oral 480 / 480 240 / 240 Output: Urine 900 / 900 500 / 500 Other: Urine Color Yellow Yellow Yellow Urine Appearance Clear Clear Urine Odor None Stool Size Moderate Stool Characteristics Soft Brown Voiding Methods Toilet Toilet Toilet Laboratory Results WBC 5.69 k/cumm (4.4-10.8) 07/08/18 06:30 RBC 2.70 m/cumm (4.00-5.20) L 07/08/18 06:30 Hgb 7.9 g/dL (12.0-15.5) L 07/08/18 06:30 Hct 25.5 % (36.0-46.0) L 07/08/18 06:30 MCV 94.4 fL (80-95) 07/08/18 06:30 MCH 29.3 pg (27.0-33.0) 07/08/18 06:30 MCHC 31.0 g/dL (32.0-36.0) L 07/08/18 06:30 RDW 13.8 % (11.7-14.6) 07/08/18 06:30 Plt Count 308 x1000/uL (130-400) 07/08/18 06:30 MPV 8.7 fL (8.0-11.0) 07/08/18 06:30 Immature Gran % 0.4 07/08/18 06:30 Neutrophils % 69.7 07/08/18 06:30 Lymphocytes % 17.2 07/08/18 06:30 Monocytes % 8.8 07/08/18 06:30 Eosinophils % 3.5 07/08/18 06:30 Basophils % 0.4 07/08/18 06:30 Absolute Neutrophils 3.97 k/cumm (1.2-6.7) 07/08/18 06:30 Absolute Lymphocytes 0.98 k/cumm (1.2-3.4) L 07/08/18 06:30 Absolute Monocytes 0.50 k/cumm (0.11-0.7) 07/08/18 06:30 Absolute Eosinophils 0.20 k/cumm (0.0-0.7) 07/08/18 06:30 Absolute Basophils 0.02 k/cumm (0.0-0.2) 07/08/18 06:30 Sodium 141 mmol/L (136-145) 07/08/18 06:30 Potassium 4.0 mmol/L (3.5-5.1) 07/08/18 06:30 Chloride 105 mmol/L (98-107) 07/08/18 06:30 Carbon Dioxide 27.8 mmol/L (21.0-32.0) 07/08/18 06:30 Anion Gap 8.2 mmol/L (3-11) 07/08/18 06:30 BUN 22 mg/dL (7-18) H D 07/08/18 06:30 Creatinine 1.43 mg/dL (0.55-1.02) H 07/08/18 06:30 Estimated GFR/1.73 m2 35.97 (mL/min/1.73m2) 07/08/18 06:30 Glucose 117 mg/dL (70-100) H 07/08/18 06:30 Calcium 8.5 mg/dL (8.5-10.1) 07/08/18 06:30 Magnesium 1.6 mg/dL (1.8-2.4) L 07/08/18 06:30 Creatine Kinase 46 U/L (26-192) 07/04/18 06:40 C-Reactive Protein 8.98 mg/dL (0.0-0.3) H 07/08/18 06:30 Vancomycin Trough 9.7 ug/mL (10.0-20.0) L 07/05/18 15:23 Lyme Disease Antibody Negative 07/04/18 06:40
--- NOTE | 2018-07-08 14:45 | PDOC.CMPRO ---
- If Service Date Differs Date of service: 07/08/18 Time of Service: 14:45 Care Management Progress Note S/O: Dena is sitting up in her chair when this proposal manager writer visits, she states that Dr. Cruz was in this morning and stated that she would need to change IV antibiotics and that he would be calling ID in regards to this. Dena states that she is worried about returning home as she is unable to wipe herself at this time. Dena has a medical consult in place at this time. A: 73 y/o female admitted 07/03/18 for (L) hip abscesses P: Dena continues to be monitored at this time, plan remains for Dena to return home with her new FWW with possible home services when ready per MD. The Hospitalist continues to follow Dena at this time. She had a PICC line placed on 07/04/18-undetermined duration of IV antibiotics. Her friend will transport her home when ready. CM will continue to follow and support discharge planning considerations.
--- NOTE | 2018-07-08 14:49 | CMPROGNOTE_ITS ---
- If Service Date Differs Date of service: 07/08/18 Time of Service: 14:45 Care Management Progress Note S/O: Dena is sitting up in her chair when this program writer visits, she states that Dr. Cruz was in this morning and stated that she would need to change IV antibiotics and that he would be calling ID in regards to this. Dena states that she is worried about returning home as she is unable to wipe herself at this time. Dena has a medical consult in place at this time. A: 73 y/o female admitted 07/03/18 for (L) hip abscesses P: Dena continues to be monitored at this time, plan remains for Dena to return home with her new FWW with possible home services when ready per MD. The Hospitalist continues to follow Dena at this time. She had a PICC line placed on 07/04/18-undetermined duration of IV antibiotics. Her friend will transport her home when ready. CM will continue to follow and support discharge planning considerations.
--- NOTE | 2018-07-08 15:08 | PGE_ITS ---
Date of Service Date of service: 07/08/18 Time of Service: 15:02 Assessment and Plan (1) Abscess of left hip: Current visit: Yes Status: Acute s/p irrigation and debridement of her left hip and soft tissues around the left hip. Cultures growing pseudomonas. Zosyn and Vanc discontinued and she was transitioned to oral cipro 500 BID according to recommendations from [place] at [facility] Case discussed with Dr. Still at [facility] ID. Continue to monitor daily CBC, BMP and CRP. Once CRP is downtrending can consider discharge home with home services versus rehab. Will likely require abx for 6 weeks. Subjective Patient reports: no new complaints Interval history since last seen: Dena is sitting up in the recliner watching TV. She reports ongoing L hip pain, otherwise denies any other complaints. Continues to work with PT. Believes the PRN pain medication is managing her symptoms well. Tolerating po intake ok. Dr. Cruz is following. Exam Const General: cooperative, healthy appearing and no acute distress Nutritional Appearance: obese Orientation: alert and oriented x3 HENMT Head: normal to inspection, normocephalic and atraumatic Mouth: oral mucosae normal Resp Effort & Inspection: normal respiratory effort Auscultation: clear to auscultation bilaterally and diminished lung sounds bilaterally Cardio Rate: regular rate Rhythm: regular rhythm GI Inspection: large pannus and obesity Palpation: soft Auscultation: normal bowel sounds Skin General skin exam: no rashes or lesions noted (L hip with mepilex AG dressing. Incision well approximated, jose intact, no surrounding erythema, warmth, drainage) Neuro General: alert, awake and oriented x3 Extrem General: edema (upper and lower) Laterality: bilateral Psych Appearance: grossly normal Speech and Movement: speech and movement normal Mood: congruent mood Affect: normal affect Attitude: cooperative Thought Process: normal Thought Content: normal Objective Objective Clinical Data: Abnormal lab results 07/08/18 07/08/18 Range/Units 06:30 06:30 RBC 2.70 L (4.00-5.20) m/cumm Hgb 7.9 L (12.0-15.5) g/dL Hct 25.5 L (36.0-46.0) % MCHC 31.0 L (32.0-36.0) g/dL Absolute Lymphocytes 0.98 L (1.2-3.4) k/cumm BUN 22 H D (7-18) mg/dL Creatinine 1.43 H (0.55-1.02) mg/dL Glucose 117 H (70-100) mg/dL Magnesium 1.6 L (1.8-2.4) mg/dL C-Reactive Protein 8.98 H (0.0-0.3) mg/dL Vital Signs Temperature 36.7 C 07/08/18 11:24 Temperature Source Tympanic 07/08/18 11:24 Pulse 88 07/08/18 11:24 Pulse Rhythm Regular 07/08/18 10:20 Respiratory Rate 18 07/08/18 11:24 Respiratory Effort Non-Labored 07/08/18 10:20 Respiratory Depth Normal 07/08/18 10:20 Respiratory Pattern Normal 07/08/18 10:20 Blood Pressure 178/76 H 07/08/18 11:24 Pulse Oximetry 97 07/08/18 11:24 Respiratory End-tidal CO2 36 07/05/18 14:59 Oxygen Delivery Method Room Air 07/08/18 11:24 Oxygen Flow Rate 0 07/08/18 11:24 Pain Level 2 07/08/18 11:24 Comment 07/07/18 19:50 Intake & Output 07/07/18 07/08/18 07/08/18 23:59 11:59 23:59 Intake Total 1442.667 / 8626.813 6784.333 / 1219.333 750 / 750 Output Total 900 / 900 500 / 500 Balance 542.667 / 542.667 719.333 / 719.333 750 / 750 Intake: IV 962.667 / 962.667 979.333 / 979.333 Oral 480 / 480 240 / 240 750 / 750 Output: Urine 900 / 900 500 / 500 Other: Urine Color Yellow Yellow Yellow Urine Appearance Clear Clear Urine Odor None Stool Size Moderate Stool Characteristics Soft Brown Voiding Methods Toilet Toilet Toilet Laboratory Results WBC 5.69 k/cumm (4.4-10.8) 07/08/18 06:30 RBC 2.70 m/cumm (4.00-5.20) L 07/08/18 06:30 Hgb 7.9 g/dL (12.0-15.5) L 07/08/18 06:30 Hct 25.5 % (36.0-46.0) L 07/08/18 06:30 MCV 94.4 fL (80-95) 07/08/18 06:30 MCH 29.3 pg (27.0-33.0) 07/08/18 06:30 MCHC 31.0 g/dL (32.0-36.0) L 07/08/18 06:30 RDW 13.8 % (11.7-14.6) 07/08/18 06:30 Plt Count 308 x1000/uL (130-400) 07/08/18 06:30 MPV 8.7 fL (8.0-11.0) 07/08/18 06:30 Immature Gran % 0.4 07/08/18 06:30 Neutrophils % 69.7 07/08/18 06:30 Lymphocytes % 17.2 07/08/18 06:30 Monocytes % 8.8 07/08/18 06:30 Eosinophils % 3.5 07/08/18 06:30 Basophils % 0.4 07/08/18 06:30 Absolute Neutrophils 3.97 k/cumm (1.2-6.7) 07/08/18 06:30 Absolute Lymphocytes 0.98 k/cumm (1.2-3.4) L 07/08/18 06:30 Absolute Monocytes 0.50 k/cumm (0.11-0.7) 07/08/18 06:30 Absolute Eosinophils 0.20 k/cumm (0.0-0.7) 07/08/18 06:30 Absolute Basophils 0.02 k/cumm (0.0-0.2) 07/08/18 06:30 Sodium 141 mmol/L (136-145) 07/08/18 06:30 Potassium 4.0 mmol/L (3.5-5.1) 07/08/18 06:30 Chloride 105 mmol/L (98-107) 07/08/18 06:30 Carbon Dioxide 27.8 mmol/L (21.0-32.0) 07/08/18 06:30 Anion Gap 8.2 mmol/L (3-11) 07/08/18 06:30 BUN 22 mg/dL (7-18) H D 07/08/18 06:30 Creatinine 1.43 mg/dL (0.55-1.02) H 07/08/18 06:30 Estimated GFR/1.73 m2 35.97 (mL/min/1.73m2) 07/08/18 06:30 Glucose 117 mg/dL (70-100) H 07/08/18 06:30 Calcium 8.5 mg/dL (8.5-10.1) 07/08/18 06:30 Magnesium 1.6 mg/dL (1.8-2.4) L 07/08/18 06:30 Creatine Kinase 46 U/L (26-192) 07/04/18 06:40 C-Reactive Protein 8.98 mg/dL (0.0-0.3) H 07/08/18 06:30 Vancomycin Trough 9.7 ug/mL (10.0-20.0) L 07/05/18 15:23 Lyme Disease Antibody Negative 07/04/18 06:40
[2018-07-08 15:56] VITALS: BP 127/92; PULSE 100; RESP 19; TEMP 37.4; O2SAT 98
[2018-07-08] MEDS: Ciprofloxacin 500 MG TAB PO (19:34)
[2018-07-08 19:45] VITALS: BP 161/72; PULSE 96; RESP 16; TEMP 37.6; O2SAT 97
[2018-07-09 00:14] VITALS: BP 151/67; PULSE 90; RESP 18; TEMP 36.6; O2SAT 96
[2018-07-09] MEDS: Heparin 5,000 UNITS/ML VIAL 5000 UNITS SC ×4 (00:36→23:44)
[2018-07-09 03:40] VITALS: BP 170/78; PULSE 93; RESP 16; TEMP 37.2; O2SAT 96
[2018-07-09] MEDS: Normal Saline 1,000 ML 80 ML IV (03:42)
[2018-07-09 07:41] LABS: Abs Immature Grans 0.02 k/cumm (0.0-0.09); Absolute Basophil Count 0.01 k/cumm (0.0-0.2); Absolute Eosinophil Count 0.19 k/cumm (0.0-0.7); Absolute Monocyte Count 0.43 k/cumm (0.11-0.7); Absolute Neutrophil Count 3.65 k/cumm (1.2-6.7); Basophils % 0.2; Eosinophils % 3.4; HCT 25.2 % (36.0-46.0); HGB 7.7 g/dL (12.0-15.5); Immature Grans % 0.4; Lymphocytes % 23.2; Mean Corp. HGB Concentration 30.6 g/dL (32.0-36.0); Mean Corpuscular Hemoglobin 28.9 pg (27.0-33.0); Mean Corpuscular Volume 94.7 fL (80-95); Mean Platelet Volume 9.3 fL (8.0-11.0); Monocytes % 7.7; Neutrophils % 65.1; Platelet Count 309 x1000/uL (130-400); RBC 2.66 m/cumm (4.00-5.20); RBC Distribution Width 13.8 % (11.7-14.6)
[2018-07-09 07:45] VITALS: BP 147/65; PULSE 87; RESP 17; TEMP 36.9; O2SAT 98
[2018-07-09 07:51] LABS: Anion Gap 8.9 mmol/L (3-11); BUN 16 mg/dL (7-18); CO2 27.1 mmol/L (21.0-32.0); Calcium 8.7 mg/dL (8.5-10.1); Chloride 107 mmol/L (98-107); Estimated GFR 48.69 (mL/min/1.73m2); Glucose 125 mg/dL (70-100); Potassium 3.9 mmol/L (3.5-5.1); Sodium 143 mmol/L (136-145)
[2018-07-09 07:53] LABS: C-Reactive Protein 5.71 mg/dL (0.0-0.3); Magnesium 1.7 mg/dL (1.8-2.4)
[2018-07-09] MEDS: Lactobacillus Acidophilus CAP 1 CAP PO ×3 (08:04→20:28)
[2018-07-09] MEDS: Atorvastatin 10 MG TAB PO (08:04)
[2018-07-09] MEDS: Magnesium Chloride 64 MG TABCR PO ×2 (08:04→20:28)
[2018-07-09] MEDS: Ciprofloxacin 500 MG TAB PO ×2 (08:04→20:28)
[2018-07-09] MEDS: traMADol 50 MG TAB PO ×2 (08:08→16:54)
[2018-07-09 08:16] LABS: Diff Comment RBC Morph Reviewed; RBC Morphology Normal
[2018-07-09] MEDS: Nystatin POWDER 60 GM JAR TP ×3 (09:35→20:28)
[2018-07-09] MEDS: MAGNESIUM SULFATE 2 GM/50 ML BAG IVPB (10:40)
[2018-07-09 11:45] VITALS: BP 150/81; PULSE 88; RESP 18; TEMP 37; O2SAT 96
[2018-07-09] MEDS: Insulin Aspart 300 UNITS/3 ML PEN SC ×2 (12:04→22:01)
--- NOTE | 2018-07-09 12:58 | W.PM.PROGNOT ---
Date of Service Date of service: 07/09/18 Time of Service: 12:59 Assessment and Plan (1) Abscess of left hip: Current visit: Yes Status: Acute s/p irrigation and debridement of her left hip and soft tissues around the left hip by Dr. Cruz. Surgical cultures growing pseudomonas. She was initially on Zosyn and Vanco, both have been discontinued. She is now on oral Cipro 500 BID based on recommendations from ID at [facility], was was previously discussed with Dr. Still at [facility]. CRP began trending down today. Continue to monitor daily CBC, BMP and CRP. Will likely require abx for 6 weeks. Ortho continues to follow as well. (2) Acute on chronic renal failure: Current visit: Yes Status: Acute Creatinine improved today from 1.43 to 1.10. Her HCTZ, losartan and januvia have been on hold. Restart HCTZ today. Continue to hold ARB and januvia. Continue to monitor renal function. (3) Hypomagnesemia: Current visit: Yes Status: Acute Magnesium down to 1.7 today. Supplement and follow magnesium level. (4) Essential hypertension: Current visit: No Status: Chronic Blood pressure up today. Restart HCTZ today. Continue to hold ARB in the setting of DOLLY. (5) DVT prophylaxis: Current visit: No Status: Acute Subcutaneous heparin. (6) Discharge planning issues: Current visit: Yes Status: Acute She is a FULL code. She may need home health upon discharge. This case was discussed with Dr. Escoto who is in agreement. Subjective Interval history since last seen: Dena is a very pleasant 73 year old female, currently being treated for abscess of the left hip with surgical culture growing Pseudomonas. She continues to report pain and burning in her left hip. She has been ambulating in the halls with her walker. She feels that the Tramadol is managing her pain well. She verbalizes concern about going home as she lives alone. She denies any other concerns, no shortness of breath, cough, wheezing, no chest pain/pressure, palpitations. She is eating and drinking without nausea or vomiting, no abdominal pain. Her bowels and bladder are functioning well. Exam Narrative Exam Narrative: General: Overweight female, sitting up in the chair, in NAD. Pleasant and cooperative, talkative. HEENT: normocephalic, atraumatic, pupils equal and round, mucous membranes moist. Heart: regular rate and rhythm, no murmur appreciated. Lungs: Respirations even and unlabored, clear to auscultation throughout. GI: abdomen soft, nontender, nondistended, with normoacitve bowel sounds. Extremities: L hip incision with dressing intact with small amount of bloody drainage. Incision well approximated, no erythema, no drainage. BLEs well perfused with +1 pitting edema bilaterally. Peripheral pulses palpable. Objective Objective Clinical Data: Abnormal lab results 07/09/18 07/09/18 07/09/18 Range/Units 06:30 06:30 06:30 RBC 2.66 L (4.00-5.20) m/cumm Hgb 7.7 L (12.0-15.5) g/dL Hct 25.2 L (36.0-46.0) % MCHC 30.6 L (32.0-36.0) g/dL Creatinine 1.10 H (0.55-1.02) mg/dL Glucose 125 H (70-100) mg/dL Magnesium 1.7 L (1.8-2.4) mg/dL C-Reactive Protein 5.71 H (0.0-0.3) mg/dL Vital Signs Temperature 36.9 C 07/09/18 07:45 Temperature Source Tympanic 07/09/18 07:45 Pulse 87 07/09/18 07:45 Pulse Rhythm Regular 07/09/18 10:20 Respiratory Rate 17 07/09/18 07:45 Respiratory Effort Non-Labored 07/09/18 10:20 Respiratory Depth Normal 07/09/18 10:20 Respiratory Pattern Normal 07/09/18 10:20 Blood Pressure 147/65 H 07/09/18 07:45 Pulse Oximetry 98 07/09/18 07:45 Respiratory End-tidal CO2 36 07/05/18 14:59 Oxygen Delivery Method Room Air 07/09/18 07:45 Oxygen Flow Rate 0 07/09/18 07:45 Pain Level 4 07/09/18 08:08 Comment 07/07/18 19:50 Intake & Output 07/08/18 07/09/18 07/09/18 23:59 11:59 23:59 Intake Total 1929 1478 / 1478 Balance 1930 / 1930 1478 / 1478 Weight 114.1 kg Intake: IV 700 / 700 888 / 888 Oral 1230 / 1230 590 / 590 Other: Urine Color Yellow Urine Appearance Clear Clear Stool Size Moderate Moderate Stool Characteristics Soft Formed Brown Voiding Methods Toilet Toilet Laboratory Results WBC 5.60 k/cumm (4.4-10.8) 07/09/18 06:30 RBC 2.66 m/cumm (4.00-5.20) L 07/09/18 06:30 Hgb 7.7 g/dL (12.0-15.5) L 07/09/18 06:30 Hct 25.2 % (36.0-46.0) L 07/09/18 06:30 MCV 94.7 fL (80-95) 07/09/18 06:30 MCH 28.9 pg (27.0-33.0) 07/09/18 06:30 MCHC 30.6 g/dL (32.0-36.0) L 07/09/18 06:30 RDW 13.8 % (11.7-14.6) 07/09/18 06:30 Plt Count 309 x1000/uL (130-400) 07/09/18 06:30 MPV 9.3 fL (8.0-11.0) 07/09/18 06:30 Immature Gran % 0.4 07/09/18 06:30 Neutrophils % 65.1 07/09/18 06:30 Lymphocytes % 23.2 07/09/18 06:30 Monocytes % 7.7 07/09/18 06:30 Eosinophils % 3.4 07/09/18 06:30 Basophils % 0.2 07/09/18 06:30 Absolute Neutrophils 3.65 k/cumm (1.2-6.7) 07/09/18 06:30 Absolute Lymphocytes 1.30 k/cumm (1.2-3.4) 07/09/18 06:30 Absolute Monocytes 0.43 k/cumm (0.11-0.7) 07/09/18 06:30 Absolute Eosinophils 0.19 k/cumm (0.0-0.7) 07/09/18 06:30 Absolute Basophils 0.01 k/cumm (0.0-0.2) 07/09/18 06:30 Differential Comment Rbc morph reviewed 07/09/18 06:30 RBC Morphology Normal 07/09/18 06:30 Sodium 143 mmol/L (136-145) 07/09/18 06:30 Potassium 3.9 mmol/L (3.5-5.1) 07/09/18 06:30 Chloride 107 mmol/L (98-107) 07/09/18 06:30 Carbon Dioxide 27.1 mmol/L (21.0-32.0) 07/09/18 06:30 Anion Gap 8.9 mmol/L (3-11) 07/09/18 06:30 BUN 16 mg/dL (7-18) D 07/09/18 06:30 Creatinine 1.10 mg/dL (0.55-1.02) H 07/09/18 06:30 Estimated GFR/1.73 m2 48.69 (mL/min/1.73m2) 07/09/18 06:30 Glucose 125 mg/dL (70-100) H 07/09/18 06:30 Calcium 8.7 mg/dL (8.5-10.1) 07/09/18 06:30 Magnesium 1.7 mg/dL (1.8-2.4) L 07/09/18 06:30 Creatine Kinase 46 U/L (26-192) 07/04/18 06:40 C-Reactive Protein 5.71 mg/dL (0.0-0.3) H 07/09/18 06:30 Vancomycin Trough 9.7 ug/mL (10.0-20.0) L 07/05/18 15:23 Lyme Disease Antibody Negative 07/04/18 06:40
--- NOTE | 2018-07-09 15:23 | CHAPLAIN ---
Dena was sitting up in her chair when I visited. She is an [employer] employee working in [employer]. Today she tells me that she is nervous about going home, as she lives alone, but also wants to be strong enough to continue to live independently. Her several years ago, but Dena has support from coworkers who have been longtime friends. Roberto from , lives near Dena and brought her bills in to her today. Marie Dmitri in [place], checks in on Dena daily while she is here, as so other coworkers. Dena is waiting so see Dr. Cruz this afternoon as she has a few questions for him. She has a great deal of confidence in Dr. Curz.
--- NOTE | 2018-07-09 15:29 | PDOC.CMPRO ---
- If Service Date Differs Date of service: 07/09/18 Time of Service: 15:29 Care Management Progress Note S/O: CM met with patient she is up ambulating in the gavin with her FWW. She was transition to oral Cipro as recommended by infectious disease and will remain on them for 6 weeks. Plan to discharge home in the next 24 to 48 hours per provider. A: 73 y/o female admitted 07/03/18 for (L) hip abscesses P: Dena continues to be monitored at this time, plan remains for Dena to return home with her new FWW with possible home services when ready per MD. The Hospitalist continues to follow Dena at this time. She had a PICC line placed on 07/04/18. Her friend will transport her home when ready. CM will continue to follow and support discharge planning considerations.
[2018-07-09 16:17] VITALS: BP 157/97; PULSE 89; RESP 18; TEMP 37.2; O2SAT 99
[2018-07-09 19:48] VITALS: BP 180/89; PULSE 62; RESP 18; TEMP 37.2; O2SAT 99
[2018-07-10 03:25] VITALS: BP 172/70; PULSE 104; RESP 20; TEMP 36.6; O2SAT 98
--- NOTE | 2018-07-10 06:43 | PGE_ITS ---
Date of Service Date of service: 07/09/18 Time of Service: 15:40 Assessment and Plan (1) Abscess of left hip: Current visit: Yes Status: Acute Dena is a 73-year-old status post debridement of the left hip abscess. The etiology really makes no sense. Currently it is growing Pseudomonas and under the direction of [facility] infectious disease, she has been switched to Cipro. She seems to be tolerating this well. Her inflammatory marker, CRP, has dropped today. She has no other systemic features. I would like to continue to watch her on the oral medication to make sure she continues to make progress with her inflammation markers. We will reinstitute physical therapy and occasional therapy consults with anticipation of hopefully going home with home health services. Subjective Interval history since last seen: In general Dena has made no major changes one way or the other. She still has pain in the left hip. She has been able to ambulate and mobilize. It does cause pain but she feels that the medications do take care of that although she does not want to take medications if necessary. She has now been fully transition to orals only. She is tolerating the Cipro relatively well. No significant GI upset. No fever no chills. Exam Narrative Exam Narrative: Dena is sitting upright during examination today. She tolerates both internal, external rotation, and flexion of the hip with some mild discomfort but no significant pain. The dressing has some mild sanguinous discharge but no overwhelming drainage. No erythema. Objective Objective Clinical Data: Abnormal lab results 07/09/18 07/09/18 07/09/18 Range/Units 06:30 06:30 06:30 RBC 2.66 L (4.00-5.20) m/cumm Hgb 7.7 L (12.0-15.5) g/dL Hct 25.2 L (36.0-46.0) % MCHC 30.6 L (32.0-36.0) g/dL Creatinine 1.10 H (0.55-1.02) mg/dL Glucose 125 H (70-100) mg/dL Magnesium 1.7 L (1.8-2.4) mg/dL C-Reactive Protein 5.71 H (0.0-0.3) mg/dL Vital Signs Temperature 36.6 C 07/10/18 03:25 Temperature Source Skin 07/10/18 03:25 Pulse 104 H 07/10/18 03:25 Pulse Rhythm Regular 07/09/18 21:12 Respiratory Rate 20 07/10/18 03:25 Respiratory Effort Non-Labored 07/09/18 21:12 Respiratory Depth Normal 07/09/18 21:12 Respiratory Pattern Normal 07/09/18 21:12 Blood Pressure 172/70 H 07/10/18 03:25 Pulse Oximetry 98 07/10/18 03:25 Respiratory End-tidal CO2 36 07/05/18 14:59 Oxygen Delivery Method Room Air 07/10/18 03:25 Oxygen Flow Rate 0 07/10/18 03:25 Pain Level 0 07/10/18 03:25 Comment 07/10/18 03:25 Intake & Output 07/09/18 07/09/18 07/10/18 11:59 23:59 11:59 Intake Total 1478 / 1478 720 / 720 500 / 500 Balance 1478 / 1478 720 / 720 500 / 500 Weight 114.1 kg 112.3 kg Intake: IV 888 / 888 Oral 590 / 590 720 / 720 500 / 500 Other: Urine Appearance Clear Clear Stool Size Moderate Voiding Methods Toilet Toilet Toilet Laboratory Results WBC 5.60 k/cumm (4.4-10.8) 07/09/18 06:30 RBC 2.66 m/cumm (4.00-5.20) L 07/09/18 06:30 Hgb 7.7 g/dL (12.0-15.5) L 07/09/18 06:30 Hct 25.2 % (36.0-46.0) L 07/09/18 06:30 MCV 94.7 fL (80-95) 07/09/18 06:30 MCH 28.9 pg (27.0-33.0) 07/09/18 06:30 MCHC 30.6 g/dL (32.0-36.0) L 07/09/18 06:30 RDW 13.8 % (11.7-14.6) 07/09/18 06:30 Plt Count 309 x1000/uL (130-400) 07/09/18 06:30 MPV 9.3 fL (8.0-11.0) 07/09/18 06:30 Immature Gran % 0.4 07/09/18 06:30 Neutrophils % 65.1 07/09/18 06:30 Lymphocytes % 23.2 07/09/18 06:30 Monocytes % 7.7 07/09/18 06:30 Eosinophils % 3.4 07/09/18 06:30 Basophils % 0.2 07/09/18 06:30 Absolute Neutrophils 3.65 k/cumm (1.2-6.7) 07/09/18 06:30 Absolute Lymphocytes 1.30 k/cumm (1.2-3.4) 07/09/18 06:30 Absolute Monocytes 0.43 k/cumm (0.11-0.7) 07/09/18 06:30 Absolute Eosinophils 0.19 k/cumm (0.0-0.7) 07/09/18 06:30 Absolute Basophils 0.01 k/cumm (0.0-0.2) 07/09/18 06:30 Differential Comment Rbc morph reviewed 07/09/18 06:30 RBC Morphology Normal 07/09/18 06:30 Sodium 143 mmol/L (136-145) 07/09/18 06:30 Potassium 3.9 mmol/L (3.5-5.1) 07/09/18 06:30 Chloride 107 mmol/L (98-107) 07/09/18 06:30 Carbon Dioxide 27.1 mmol/L (21.0-32.0) 07/09/18 06:30 Anion Gap 8.9 mmol/L (3-11) 07/09/18 06:30 BUN 16 mg/dL (7-18) D 07/09/18 06:30 Creatinine 1.10 mg/dL (0.55-1.02) H 07/09/18 06:30 Estimated GFR/1.73 m2 48.69 (mL/min/1.73m2) 07/09/18 06:30 Glucose 125 mg/dL (70-100) H 07/09/18 06:30 Calcium 8.7 mg/dL (8.5-10.1) 07/09/18 06:30 Magnesium 1.7 mg/dL (1.8-2.4) L 07/09/18 06:30 Creatine Kinase 46 U/L (26-192) 07/04/18 06:40 C-Reactive Protein 5.71 mg/dL (0.0-0.3) H 07/09/18 06:30 Vancomycin Trough 9.7 ug/mL (10.0-20.0) L 07/05/18 15:23 Lyme Disease Antibody Negative 07/04/18 06:40
[2018-07-10 07:17] LABS: Abs Immature Grans 0.01 k/cumm (0.0-0.09); Absolute Basophil Count 0.01 k/cumm (0.0-0.2); Absolute Eosinophil Count 0.19 k/cumm (0.0-0.7); Absolute Lymphocyte Count 1.39 k/cumm (1.2-3.4); Absolute Monocyte Count 0.43 k/cumm (0.11-0.7); Absolute Neutrophil Count 3.77 k/cumm (1.2-6.7); Basophils % 0.2; Eosinophils % 3.3; HCT 25.8 % (36.0-46.0); Immature Grans % 0.2; Mean Corpuscular Volume 93.5 fL (80-95); Mean Platelet Volume 8.7 fL (8.0-11.0); Monocytes % 7.4; Neutrophils % 64.9; Platelet Count 311 x1000/uL (130-400); RBC 2.76 m/cumm (4.00-5.20); RBC Distribution Width 13.8 % (11.7-14.6)
[2018-07-10 07:32] LABS: Anion Gap 6.7 mmol/L (3-11); BUN 14 mg/dL (7-18); CO2 29.3 mmol/L (21.0-32.0); CREATININE 1.08 mg/dL (0.55-1.02); Calcium 8.7 mg/dL (8.5-10.1); Chloride 105 mmol/L (98-107); Estimated GFR 49.73 (mL/min/1.73m2); Glucose 133 mg/dL (70-100); Potassium 3.7 mmol/L (3.5-5.1); Sodium 141 mmol/L (136-145)
[2018-07-10 07:35] VITALS: BP 148/69; PULSE 92; RESP 18; TEMP 36.7; O2SAT 98
[2018-07-10 07:40] LABS: C-Reactive Protein 5.14 mg/dL (0.0-0.3); Magnesium 1.4 mg/dL (1.8-2.4)
[2018-07-10] MEDS: Heparin 5,000 UNITS/ML VIAL 5000 UNITS SC ×3 (08:20→23:20)
[2018-07-10] MEDS: Atorvastatin 10 MG TAB PO (08:20)
[2018-07-10] MEDS: Lactobacillus Acidophilus CAP 1 CAP PO ×3 (08:20→19:37)
[2018-07-10] MEDS: Ciprofloxacin 500 MG TAB PO ×2 (08:20→19:37)
[2018-07-10] MEDS: Normal Saline Flush 10 ML SYR IVP ×3 (08:20→21:41)
--- NOTE | 2018-07-10 09:15 | OT.INIE ---
Occupational Therapy Notes Inpatient Occupational Therapy Evaluation Date: 07/10/18 Referring Doctor:Tadeo Cruz MD OT Orders: Left hip debridement for abscess. ADL assessment for return to home safety. Precautions: WBAT (L) LE PATIENT PROFILE/ADMITTING DIAGNOSIS: Pt is a 73 year old female who was seen on 07/03/[address] Cruz for a (L) hip abscess. On 07/05/18 she underwent surgery performed by Dr. Cruz. Pt was seen today for OT consult. Past Medical History: DMII, Disorder of gall bladder, hyperlipidemia, HTN, Obesity, abnormal hysterectomy, cholecystectomy, open carpal tunnel release, total knee replacement about 14 years ago. Current Functional Limitations: Pt reports that has decreased (I) in ADLs including carrying her food from her kitchen to her living room, difficulty wiping post bowel movement, she reports that she is unable to drive, and that she has no way to get groceries or food, also reports that she is unable to bath due to dressing over incision. Social History/Home Situation: Pt lives alone in a mobile home. She has four steps to enter with (B) railings. She reports that her home set up is all on one floor. She has a walk in shower with a shower chair and is (I) with all ADLs/IADLs. Equipment owned/DME: Cane, shower chair, pt has FWW in room that she will take home with her when medically cleared. SUBJECTIVE: Pt was sitting in chair when OT arrived. She reports I have lots of questions for you today. Pt is agreeable to OT consult. OBJECTIVE: General Observation: PICC line in (L) UE Mental Status: A&Ox3 Pain: Pt only complaints was when reaching towards feet pt notes pain in incision. ROM: RUE WNL L UE WNL STRENGTH: RUE 5/5 throughout LUE 5/5 throughout SENSATION: Pt intact to light touch and sensation through (B) UE. FUNCTIONAL MOBILITY/ADLS: BATHING Pt reports that she is unable to perform bating because she cannot change her own dressing and she can't get her PICC line wet. OT suggests bathing with handheld shower head covering PICC line and dressing on (L) hip. Pt denies this stating thats not an option. OT suggests that pt perform sponge bathing for 1 week until jose can get removed. Pt denies this reporting she will not perform sponge bathing. OT suggests that pt just cover both the PICC line and the dressing on (L) hip with plastic and pt reports this is impossible to do, not an option. Pt reports, If I can go SWING rehabilitation status I know I will feel better because I am not going to [facility]. DRESSING Pt denies dressing in todays session. She reports that she is (I) in UE dressing. Pt reports that she is unable to put on her socks. OT suggests sock aid pt reports she will not use a sock aid because it stretches her socks out. Pt later reports that she really doesn't wear socks more her slippers. PT states that she puts on her pants with use of her cane. She denies performing this at OT consult. GROOMING Pt reports that she is (I) with this. Denies as she is eating her breakfast at this time. TOILETING Pt reports that she is (I) with toileting except for wiping post bowel movement. OT suggests adaptive equipment. Pt reports no, I don't think so. Pt was educated on adaptive equipment and denies. Pt reports that she is unable to wipe due to pain in incision and my arms don't reach anymore due to pain. Pt states that if she could go SWING rehabilitation status she knows that she would feel better because she feels her pain would be better managed. EATING (I) Pt reports that she is nervous about driving as she cannot drive at this time so she has no way to get groceries or food and reports that this is not a great time of year to ask friends for help. OT discusses with pt Meals on Wheels. Pt reports well I don't think that they will deliver to me because I live in the [facility]. OT discusses with pt that Home Health OT services may be helpful. Pt reports I don't trust home health, I have a friend who didn't have good luck with them. Pt reports that she needs to be able to get her food from her kitchen to the living room. OT recommends that pt use a tray that attaches to walker to increase her (I) in functional mobility throughout meal times. BALANCE: Static sitting Normal Dynamic Sitting Normal SPECIAL TESTS: Daily Activity Limitations Standardized Measure [employer] AM -PAC ?6 clicks? Daily Activity Inpatient Short Form: Raw score: 21 Standardized score: 44.27 CMS score: 32.79% CMS modifier: CJ INFORMED CONSENT/EDUCATION: Pt instructed in purpose of OT Consult and plan of care. ASSESSMENT: Patient is a 73-year-old female referred to occupational therapy services with diagnosis of (L) hip abscess and was seen by Dr. Cruz on 07/03/18 and underwent surgery on 07/05/18 in setting of DMII, Disorder of gall bladder, hyperlipidemia, HTN, Obesity, abnormal hysterectomy, cholecystectomy, open carpal tunnel release, total knee replacement about 14 years ago. Pt was seen for OT consult today. Pt has a lot of questions, please see above. Pt was receptive to tray for walker but otherwise was not receptive to education for toileting, driving, food prep or bathing routines. Pt reported multiple times that if she could go SWING rehabilitation status then she feels that she could get her pain under control and then wouldn't have any issues. OT recommends that pt get a tray for walker to increase (I) in meals and food preparation. Otherwise OT recommends that pt return home when medically cleared with home OT. Pt denied and was not receptive to training. If pt returns home she will need supports for driving, groceries/food and home OT services. Otherwise D/C from skilled OT services at this time. AMPAC score 21, CMS score 32.79% Patient is assessed as a Moderate 79551 complexity based on the following: History: See Above Examination: See Above Presentation: Evolving Decision Making: AMPAC score 21, CMS score 32.79% GOALS N/A PLAN OF CARE/TREATMENT PLAN: OT consult only. DISCHARGE RECOMMENDATIONS: Home with home OT services when medically cleared Meals on Wheels Tray for walker to increase safe mobility for meals and meal preparation Possible RCT/ help with transportation to get to appointments TREATMENT TIME/MINUTES/CODES IE 30 min, TAx1 (08:30) G Codes in the area of self- : washing oneself, toileting, dressing, eating and drinking, current status GO [id number] CJ projected status GO [id number]. Discharge status (if discharging) GO [id number]. Based on AMPAC score of 21, CMS score of 32.79%. Sanjuana Hernandez OTR/L
[2018-07-10] MEDS: Nystatin POWDER 60 GM JAR TP ×3 (09:45→19:36)
[2018-07-10] MEDS: traMADol 50 MG TAB PO ×2 (09:45→19:37)
[2018-07-10] MEDS: Magnesium Chloride 64 MG TABCR PO ×2 (09:45→21:39)
[2018-07-10] MEDS: POTASSIUM CHLORIDE 20 MEQ, POTASSIUM CHLORIDE 10 MEQ 30 MEQ PO (10:25)
[2018-07-10] MEDS: Losartan 50 MG TAB 75 MG PO (10:26)
[2018-07-10] MEDS: MAGNESIUM SULFATE 2 GM/50 ML BAG IVPB (10:30)
--- NOTE | 2018-07-10 10:43 | PT.INIE ---
Date of service: 07/10/18 Time of Service: 10:15 PT Notes Date: 07/10/2018 Referring Doctor: Dr. Cruz PT Orders: PT CONSULT: Left hip debridement for abscess. WBAT with assistive devices. Precautions: Standard precautions Patient Profile/Admitting Diagnosis: Patient is a 73-year-old female admitted with abscess left hip, status post left hip debridement for abscess 07/05/[address] Cruz PMHX: Obesity, total knee arthroplasty, carpal tunnel release, diabetes mellitus type 2, hypertension, hyperlipidemia, gallbladder disorder, hysterectomy, cholecystectomy, dilation and curettage, fertility issues Social History/Home Situation: Lives alone in a trailer 4 steps with bilateral railing to enter. Baseline mobility independent gait with single-point cane, independent with ADLs. Equipment Owned/DME: Cane, shower bench. FWW issued as an inpatient and adjusted to patient's height. Subjective: Patient sitting in chair, states she feels she is having difficulty getting in and out of bed and moving around due to left hip pain and weakness. States she does not feel safe returning to home alone at this time, is interested in swing rehab program to assist return to independent level of function prior to discharge. Objective: Mental Status: A and O x3 Pain: 4/10 pain left hip at beginning of session, 7-8/10 left hip after session completed, RN notified to provide pain medication. Discussion with patient to set up schedule for pain medication with therapy services, patient did receive pain medication in the morning, prior to therapy. Bed Mobility/Transfers: Supine to sit: HOB 30 degrees, mod assist for lower extremities with use of leg tractor operator helper. Patient with difficulty using leg tractor operator helper due to left hip pain and weakness, will need continued instruction. Sit to supine: HOB flat, min assist x1 for lower extremities with use of leg tractor operator helper. Sit to stand: Independent with FWW Stand to sit: Independent with FWW Bed to chair: Supervision with FWW Gait: Supervision with FWW 150 feet x1, patient required 3 standing rest of 30 seconds during gait session due to left hip pain and weakness. Patient returned to room and up in recliner chair with legs elevated end of session. Balance: Static Sitting: Normal Dynamic Sitting: Normal Static Standing: Fair Dynamic Standing: Fair Special Tests: Mobility Limitations Standardized Measure [facility] 6 clicks Basic Mobility Inpatient Short Form: Raw Score: 18 standardized Score: 43.63 CMS Score: 46.58 % [facility] Modifier: C CK Informed Consent/Education: Patient instructed in purpose of PT consult and plan of care. Assessment: Patient is a 73-year-old female admitted with abscess left hip, s/p left hip debridement for abscess 07/05/[address] Cruz in setting of obesity, total knee arthroplasty, carpal tunnel release, diabetes mellitus type 2, hypertension. Patient presents with the following impairment level findings: Weakness left hip musculature status post left hip debridement making it difficult for her to get him out of bed requiring 1 person assist to lift legs for bed transfers, pain in left hip status post abscess drainage, decreased static and dynamic standing balance requiring use of front wheel walker for gait stability, requires frequent rest breaks with gait mobility due to weakness and pain in left hip, unable to perform stairs due to left hip weakness. Patient will benefit from skilled PT intervention for strengthening, bed mobility training, stair training, and progressive gait training, she would qualify for swing rehab at this time prior to discharge home setting. Impairments are contributing to the following functional limitations: [facility] CMS Score: 46.58 % Patient is assessed as a Moderate 89677 complexity based on the following: History: See above Examination: See above Presentation: Evolving Decision Making: : [facility] CMS Score: 46.58 % Goals: 1. Supine to sit: Independent with leg tractor operator helper 2. Sit to supine: Independent with leg tractor operator helper 3. Sit to stand: Independent with FWW 4. stand to sit: Independent with FWW 5. Bed to chair: Independent with FWW 6. Chair to bed: Independent with FWW 7. Gait: Independent with FWW 200 feet, no rest breaks 8. Up/down 4 steps with railing, independent 9. Independent with home exercise program for left hip strengthening Plan of Care/Treatment Plan: 1-2x/day 7 days/week x 1 week STORE CLERK instructed in patient's plan of care Initiate physical therapy intervention for strengthening, bed mobility, transfer and gait training, use of assistive devices to assist with mobility, balance training, stair training DISCHARGE RECOMMENDATIONS: Swing rehab prior to home with home PT TREATMENT CODE/TIME: 26 minutes IE and 15 AM G Codes in the area mobility of walking and moving around: current status [id number]; projected status GP [id number]. Discharge status (if discharging) GP G8980 CK based on : [facility] score Gayla Wilburn PT Disclaimer: This note was created using [employer] voice recognition software. It was reviewed for major content. However, there may be multiple small discrepancies and errors due to the voice recognition aspects of the software.
--- NOTE | 2018-07-10 10:49 | IN_ITS ---
Date of service: 07/10/18 Time of Service: 10:15 PT Notes Date: 07/10/2018 Referring Doctor: Dr. Cruz PT Orders: PT CONSULT: Left hip debridement for abscess. WBAT with assistive devices. Precautions: Standard precautions Patient Profile/Admitting Diagnosis: Patient is a 73-year-old female admitted with abscess left hip, status post left hip debridement for abscess 07/05/[address] Cruz PMHX: Obesity, total knee arthroplasty, carpal tunnel release, diabetes mellitus type 2, hypertension, hyperlipidemia, gallbladder disorder, hysterectomy, cholecystectomy, dilation and curettage, fertility issues Social History/Home Situation: Lives alone in a trailer 4 steps with bilateral railing to enter. Baseline mobility independent gait with single-point cane, independent with ADLs. Equipment Owned/DME: Cane, shower bench. FWW issued as an inpatient and adjusted to patient's height. Subjective: Patient sitting in chair, states she feels she is having difficulty getting in and out of bed and moving around due to left hip pain and weakness. States she does not feel safe returning to home alone at this time, is interested in swing rehab program to assist return to independent level of function prior to discharge. Objective: Mental Status: A and O x3 Pain: 4/10 pain left hip at beginning of session, 7-8/10 left hip after session completed, RN notified to provide pain medication. Discussion with patient to set up schedule for pain medication with therapy services, patient did receive pain medication in the morning, prior to therapy. Bed Mobility/Transfers: Supine to sit: HOB 30 degrees, mod assist for lower extremities with use of leg orthopedic shoe fitter. Patient with difficulty using leg orthopedic shoe fitter due to left hip pain and weakness, will need continued instruction. Sit to supine: HOB flat, min assist x1 for lower extremities with use of leg orthopedic shoe fitter. Sit to stand: Independent with FWW Stand to sit: Independent with FWW Bed to chair: Supervision with FWW Gait: Supervision with FWW 150 feet x1, patient required 3 standing rest of 30 seconds during gait session due to left hip pain and weakness. Patient returned to room and up in recliner chair with legs elevated end of session. Balance: Static Sitting: Normal Dynamic Sitting: Normal Static Standing: Fair Dynamic Standing: Fair Special Tests: Mobility Limitations Standardized Measure [facility] 6 clicks Basic Mobility Inpatient Short Form: Raw Score: 18 standardized Score: 43.63 CMS Score: 46.58 % [facility] Modifier: C CK Informed Consent/Education: Patient instructed in purpose of PT consult and plan of care. Assessment: Patient is a 73-year-old female admitted with abscess left hip, s/p left hip debridement for abscess 07/05/[address] Cruz in setting of obesity , total knee arthroplasty, carpal tunnel release, diabetes mellitus type 2, hypertension. Patient presents with the following impairment level findings: Weakness left hip musculature status post left hip debridement making it difficult for her to get him out of bed requiring 1 person assist to lift legs for bed transfers, pain in left hip status post abscess drainage, decreased static and dynamic standing balance requiring use of front wheel walker for gait stability, requires frequent rest breaks with gait mobility due to weakness and pain in left hip, unable to perform stairs due to left hip weakness. Patient will benefit from skilled PT intervention for strengthening, bed mobility training, stair training, and progressive gait training, she would qualify for swing rehab at this time prior to discharge home setting. Impairments are contributing to the following functional limitations: [facility] CMS Score: 46.58 % Patient is assessed as a Moderate 24730 complexity based on the following: History: See above Examination: See above Presentation: Evolving Decision Making: : [facility] CMS Score: 46.58 % Goals: 1. Supine to sit: Independent with leg orthopedic shoe fitter 2. Sit to supine: Independent with leg orthopedic shoe fitter 3. Sit to stand: Independent with FWW 4. stand to sit: Independent with FWW 5. Bed to chair: Independent with FWW 6. Chair to bed: Independent with FWW 7. Gait: Independent with FWW 200 feet, no rest breaks 8. Up/down 4 steps with railing, independent 9. Independent with home exercise program for left hip strengthening Plan of Care/Treatment Plan: 1-2x/day 7 days/week x 1 week SOFTWARE APPLICATION TESTER instructed in patient's plan of care Initiate physical therapy intervention for strengthening, bed mobility, transfer and gait training, use of assistive devices to assist with mobility, balance training, stair training DISCHARGE RECOMMENDATIONS: Swing rehab prior to home with home PT TREATMENT CODE/TIME: 26 minutes IE and 15 AM G Codes in the area mobility of walking and moving around: current status [id number]; projected status GP [id number]. Discharge status (if discharging) GP G8980 CK based on : [facility] score Gayla Wilburn PT Disclaimer: This note was created using [employer] voice recognition software. It was reviewed for major content. However, there may be multiple small discrepancies and errors due to the voice recognition aspects of the software.
--- NOTE | 2018-07-10 13:24 | PDOC.CMPRO ---
- If Service Date Differs Date of service: 07/10/18 Time of Service: 13:24 Care Management Progress Note S/O: Dena is sitting up in her chair with her legs elevated when this field underwriter visits this morning. Dena states that OT came in and discussed options for wiping and states that she is not interested in any of the options presented. Dena also states that she met with PT today and that she is working on getting in and out of bed which has been difficult for her. CM met with LUZ Shukla, whom states that she would be able to skill her if needed for a swingbed stay as Dena is having difficulties with getting into and out of bed. MARQUIS spoke with Dr. Cruz in regards to the above and he will speak with the hospitalist. A: 73 y/o female admitted 07/03/18 for (L) hip abscesses P: Dena continues to be monitored at this time, plan remains for Dena to return home with her new FWW with possible home services when ready per MD. The Hospitalist continues to follow Dena at this time. She had a PICC line placed on 07/04/18. Her friend will transport her home when ready. CM will continue to follow and support discharge planning considerations.
--- NOTE | 2018-07-10 13:30 | CMPROGNOTE_ITS ---
- If Service Date Differs Date of service: 07/10/18 Time of Service: 13:24 Care Management Progress Note S/O: Dena is sitting up in her chair with her legs elevated when this caption writer visits this morning. Dena states that OT came in and discussed options for wiping and states that she is not interested in any of the options presented. Dena also states that she met with PT today and that she is working on getting in and out of bed which has been difficult for her. CM met with LUZ Shukla, whom states that she would be able to skill her if needed for a swingbed stay as Dena is having difficulties with getting into and out of bed. MARQUIS spoke with Dr. Cruz in regards to the above and he will speak with the hospitalist. A: 73 y/o female admitted 07/03/18 for (L) hip abscesses P: Dena continues to be monitored at this time, plan remains for Dena to return home with her new FWW with possible home services when ready per MD. The Hospitalist continues to follow Dena at this time. She had a PICC line placed on 07/04/18. Her friend will transport her home when ready. CM will continue to follow and support discharge planning considerations.
[2018-07-10 14:04] VITALS: BP 125/74; PULSE 91; RESP 20; TEMP 36.3; O2SAT 94
[2018-07-10] MEDS: Acetaminophen 325 MG TAB 650 MG PO (14:17)
--- NOTE | 2018-07-10 14:28 | NUR.NOTE ---
Nursing Note: 1425: pt reporting increased pain in groin similar to pain that she presented with. pain is 4-6/10 t/o this shift. tramadol given previously in shift with no relief. pt recently given tylenol and ice pack. pt transitioned from iv to oral abx on Sunday. reported above to cc ricardo culver RN
--- NOTE | 2018-07-10 15:55 | PT.INNT ---
Date of service: 07/10/18 Time of Service: 15:55 PT Notes Inpatient Physical Therapy Treatment Note Date: 07/10/18 PRECAUTIONS: WBAT on L SUBJECTIVE: Dena states that she is having a hard time getting into and out of bed. She reports that she is independently transferring to and from the bathroom. OBJECTIVE: PAIN: Patient c/o groin pain with gait training and bed mobility BED MOBILITY/TRANSFERS Supine-sit: SBA with HOB flat with leg seismic engineer Sit-supine: SBA with HOB flat with leg seismic engineer Sit-stand: SBA Stand-sit: SBA GAIT Assistive Device: FWW Weight bearing: WBAT on L Assist: S Distance: 150' Deviation: Standing rest x5 ASSESSMENT: Patient tolerated session with c/o pain in her groin with gait training and bed mobility. She would benefit from continued gait and transfer training for improved mobility. PLAN: Continue with PT's POC TREATMENT CODE/TIME: 25 minutes
--- NOTE | 2018-07-10 15:59 | NT_ITS ---
Date of service: 07/10/18 Time of Service: 15:55 PT Notes Inpatient Physical Therapy Treatment Note Date: 07/10/18 PRECAUTIONS: WBAT on L SUBJECTIVE: Dena states that she is having a hard time getting into and out of bed. She reports that she is independently transferring to and from the bathroom. OBJECTIVE: PAIN: Patient c/o groin pain with gait training and bed mobility BED MOBILITY/TRANSFERS Supine-sit: SBA with HOB flat with leg pneumatic jack operator Sit-supine: SBA with HOB flat with leg pneumatic jack operator Sit-stand: SBA Stand-sit: SBA GAIT Assistive Device: FWW Weight bearing: WBAT on L Assist: S Distance: 150' Deviation: Standing rest x5 ASSESSMENT: Patient tolerated session with c/o pain in her groin with gait training and bed mobility. She would benefit from continued gait and transfer training for improved mobility. PLAN: Continue with PT's POC TREATMENT CODE/TIME: 25 minutes
[2018-07-10] MEDS: Insulin Aspart 300 UNITS/3 ML PEN SC ×2 (17:16→21:40)
--- NOTE | 2018-07-10 17:18 | W.PM.PROGNOT ---
Date of Service Date of service: 07/10/18 Time of Service: 17:18 Assessment and Plan (1) Abscess of left hip: Current visit: Yes Status: Acute s/p irrigation and debridement of her left hip and soft tissues around the left hip by Dr. Cruz. Surgical cultures growing pseudomonas. She was initially on Zosyn and Vanco, both have been discontinued. She is now on oral Cipro 500 BID [place] [facility] [place] was previously discussed with Dr. Still at [facility]. CRP began trending down again today. Continue to monitor daily CBC, BMP and CRP. Will likely require abx for 6 weeks. Ortho continues to follow as well. (2) Acute on chronic renal failure: Current visit: Yes Status: Acute Creatinine improved today to 1.08. Her HCTZ was restarted yesterday. Losartan restarted today.Januvia remains on hold. Continue to monitor renal function. (3) Hypomagnesemia: Current visit: Yes Status: Acute Magnesium down to 1.4 today. Supplement and follow magnesium level. (4) Essential hypertension: Current visit: No Status: Chronic Blood pressure increasing. HCTZ restarted yesterday. ARB restarted today. Continue to monitor renal function and BP. (5) DVT prophylaxis: Current visit: No Status: Acute Subcutaneous heparin. (6) Discharge planning issues: Current visit: Yes Status: Acute She is a FULL code. She may need home health upon discharge. This case was discussed with Dr. Escoto who is in agreement. Subjective Interval history since last seen: Dena is a pleasant 73 year old female, currently being treated for abscess of the left hip with surgical culture growing Pseudomonas. She continues to report pain and burning in her left hip and groin. Her pain is increased today, ice is helping. She has been working with PT. She has been ambulating in the gavin. She denies any other concerns, no shortness of breath, cough, wheezing, no chest pain/pressure, palpitations. She is eating and drinking without nausea or vomiting, no abdominal pain. Her bowels and bladder are functioning well, she is having regular bowel movements. Exam Narrative Exam Narrative: General: Overweight female, sitting up in the chair, legs elevated, in NAD. Pleasant and cooperative, talkative. HEENT: normocephalic, atraumatic, pupils equal and round, mucous membranes moist. Heart: regular rate and rhythm, no murmur appreciated. Lungs: Respirations even and unlabored, clear to auscultation throughout. GI: abdomen round, soft, nontender, nondistended, with normoacitve bowel sounds. Extremities: L hip incision with dressing intact with small amount of bloody drainage. Incision well approximated, no erythema, no drainage. BLEs well perfused with +1 pitting edema bilaterally. Peripheral pulses palpable. Objective Objective Clinical Data: Abnormal lab results 07/10/18 07/10/18 07/10/18 Range/Units 06:30 06:30 06:35 RBC 2.76 L (4.00-5.20) m/cumm Hgb 8.0 L (12.0-15.5) g/dL Hct 25.8 L (36.0-46.0) % MCHC 31.0 L (32.0-36.0) g/dL Creatinine 1.08 H (0.55-1.02) mg/dL Glucose 133 H (70-100) mg/dL Magnesium 1.4 L (1.8-2.4) mg/dL C-Reactive Protein 5.14 H (0.0-0.3) mg/dL Vital Signs Temperature 36.7 C 07/10/18 07:35 Temperature Source Tympanic 07/10/18 07:35 Pulse 92 H 07/10/18 07:35 Pulse Rhythm Regular 07/10/18 16:03 Respiratory Rate 18 07/10/18 07:35 Respiratory Effort 07/10/18 16:03 Respiratory Depth Normal 07/10/18 16:03 Respiratory Pattern Normal 07/10/18 16:03 Blood Pressure 148/69 H 07/10/18 07:35 Pulse Oximetry 98 07/10/18 07:35 Respiratory End-tidal CO2 36 07/05/18 14:59 Oxygen Delivery Method Room Air 07/10/18 07:35 Oxygen Flow Rate 0 07/10/18 07:35 Pain Level 6 07/10/18 14:17 Comment 07/10/18 07:35 Intake & Output 07/09/18 07/10/18 07/10/18 23:59 11:59 23:59 Intake Total 720 / 720 620 / 620 290 / 290 Balance 720 / 720 620 / 620 290 / 290 Weight 112.3 kg Intake: IV 50 / 50 Oral 720 / 720 620 / 620 240 / 240 Other: Urine Appearance Clear Clear Comment pt voiding independently in toilet; urine not assessed Stool Size Moderate Stool Characteristics Soft Formed Voiding Methods Toilet Toilet Laboratory Results WBC 5.80 k/cumm (4.4-10.8) 07/10/18 06:30 RBC 2.76 m/cumm (4.00-5.20) L 07/10/18 06:30 Hgb 8.0 g/dL (12.0-15.5) L 07/10/18 06:30 Hct 25.8 % (36.0-46.0) L 07/10/18 06:30 MCV 93.5 fL (80-95) 07/10/18 06:30 MCH 29.0 pg (27.0-33.0) 07/10/18 06:30 MCHC 31.0 g/dL (32.0-36.0) L 07/10/18 06:30 RDW 13.8 % (11.7-14.6) 07/10/18 06:30 Plt Count 311 x1000/uL (130-400) 07/10/18 06:30 MPV 8.7 fL (8.0-11.0) 07/10/18 06:30 Immature Gran % 0.2 07/10/18 06:30 Neutrophils % 64.9 07/10/18 06:30 Lymphocytes % 24.0 07/10/18 06:30 Monocytes % 7.4 07/10/18 06:30 Eosinophils % 3.3 07/10/18 06:30 Basophils % 0.2 07/10/18 06:30 Absolute Neutrophils 3.77 k/cumm (1.2-6.7) 07/10/18 06:30 Absolute Lymphocytes 1.39 k/cumm (1.2-3.4) 07/10/18 06:30 Absolute Monocytes 0.43 k/cumm (0.11-0.7) 07/10/18 06:30 Absolute Eosinophils 0.19 k/cumm (0.0-0.7) 07/10/18 06:30 Absolute Basophils 0.01 k/cumm (0.0-0.2) 07/10/18 06:30 Differential Comment Rbc morph reviewed 07/09/18 06:30 RBC Morphology Normal 07/09/18 06:30 Sodium 141 mmol/L (136-145) 07/10/18 06:35 Potassium 3.7 mmol/L (3.5-5.1) 07/10/18 06:35 Chloride 105 mmol/L (98-107) 07/10/18 06:35 Carbon Dioxide 29.3 mmol/L (21.0-32.0) 07/10/18 06:35 Anion Gap 6.7 mmol/L (3-11) 07/10/18 06:35 BUN 14 mg/dL (7-18) 07/10/18 06:35 Creatinine 1.08 mg/dL (0.55-1.02) H 07/10/18 06:35 Estimated GFR/1.73 m2 49.73 (mL/min/1.73m2) 07/10/18 06:35 Glucose 133 mg/dL (70-100) H 07/10/18 06:35 Calcium 8.7 mg/dL (8.5-10.1) 07/10/18 06:35 Magnesium 1.4 mg/dL (1.8-2.4) L 07/10/18 06:30 Creatine Kinase 46 U/L (26-192) 07/04/18 06:40 C-Reactive Protein 5.14 mg/dL (0.0-0.3) H 07/10/18 06:30 Vancomycin Trough 9.7 ug/mL (10.0-20.0) L 07/05/18 15:23 Lyme Disease Antibody Negative 07/04/18 06:40
[2018-07-10 23:05] VITALS: BP 125/72; PULSE 88; RESP 18; TEMP 36.5; O2SAT 95
[2018-07-11 00:10] VITALS: BP 131/72; PULSE 93; RESP 20; TEMP 36.9; O2SAT 96
--- NOTE | 2018-07-11 00:32 | NUR.NOTE ---
Nursing Note: From 23:00 to 07:00 shift. Pt received asleep but easy arousable. Conversant. Rt hip dressing is intact with visible marked stains done by RN evening shift. Ice pack applied continuously one left groin. Ambulates to bathroom with walker with supervision and minimal assist to get back to bed. Has bearable pain when asked, does not require pain med at this time. Call [facility] within reach.
[2018-07-11 07:13] LABS: Abs Immature Grans 0.02 k/cumm (0.0-0.09); Absolute Basophil Count 0.01 k/cumm (0.0-0.2); Absolute Eosinophil Count 0.15 k/cumm (0.0-0.7); Absolute Monocyte Count 0.52 k/cumm (0.11-0.7); Absolute Neutrophil Count 3.61 k/cumm (1.2-6.7); Basophils % 0.2; Eosinophils % 2.7; HCT 26.1 % (36.0-46.0); HGB 8.1 g/dL (12.0-15.5); Immature Grans % 0.4; Lymphocytes % 23.2; Mean Corpuscular Hemoglobin 29.1 pg (27.0-33.0); Mean Corpuscular Volume 93.9 fL (80-95); Mean Platelet Volume 8.9 fL (8.0-11.0); Monocytes % 9.3; Neutrophils % 64.2; Platelet Count 295 x1000/uL (130-400); RBC 2.78 m/cumm (4.00-5.20); RBC Distribution Width 14.1 % (11.7-14.6); White Blood Cell Count 5.61 k/cumm (4.4-10.8)
[2018-07-11 07:25] LABS: Anion Gap 8.6 mmol/L (3-11); BUN 15 mg/dL (7-18); CO2 29.4 mmol/L (21.0-32.0); CREATININE 1.03 mg/dL (0.55-1.02); Chloride 103 mmol/L (98-107); Estimated GFR 52.53 (mL/min/1.73m2); Glucose 138 mg/dL (70-100); Potassium 3.6 mmol/L (3.5-5.1); Sodium 141 mmol/L (136-145)
[2018-07-11 07:28] LABS: C-Reactive Protein 6.04 mg/dL (0.0-0.3); Magnesium 1.7 mg/dL (1.8-2.4)
[2018-07-11 07:40] VITALS: BP 155/63; PULSE 94; RESP 18; TEMP 36.5; O2SAT 99
[2018-07-11] MEDS: Normal Saline Flush 10 ML SYR IVP (08:33)
[2018-07-11] MEDS: Insulin Aspart 300 UNITS/3 ML PEN SC ×4 (08:33→22:02)
[2018-07-11] MEDS: Losartan 50 MG TAB 75 MG PO (08:34)
[2018-07-11] MEDS: sitaGLIPtin 25 MG TABLET 50 MG PO (08:34)
[2018-07-11] MEDS: Potassium Chloride 20 MEQ TABCR 40 MEQ PO (08:34)
[2018-07-11] MEDS: MAGNESIUM SULFATE 1 GM/100 ML BAG IVPB (08:35)
[2018-07-11] MEDS: Atorvastatin 10 MG TAB PO (08:35)
[2018-07-11] MEDS: Lactobacillus Acidophilus CAP 1 CAP PO ×3 (08:35→19:40)
[2018-07-11] MEDS: Magnesium Oxide 400 MG TAB PO (08:35)
[2018-07-11] MEDS: Heparin 5,000 UNITS/ML VIAL 5000 UNITS SC (08:35)
[2018-07-11] MEDS: Ciprofloxacin 500 MG TAB PO ×2 (08:35→19:40)
[2018-07-11] MEDS: Nystatin POWDER 60 GM JAR TP ×3 (08:48→19:40)
--- NOTE | 2018-07-11 11:08 | PT.INTREAT ---
Date of service: 07/11/18 Time of Service: 11:08 PT Notes Inpatient Physical Therapy Treatment Note Date: 07/11/18 PRECAUTIONS: WBAT on L SUBJECTIVE: Dena states that she has been working on bed transfers with use of the leg mechanical press operator and feels that she is getting better at it. OBJECTIVE: PAIN: Patient c/o pain in groin with gait training BED MOBILITY/TRANSFERS Supine-sit: I with HOB flat and leg mechanical press operator Sit-stand: I Stand-sit: I GAIT Assistive Device: FWW Weight bearing: WBAT on L Assist: S Distance: 100' + 10' x2 Deviation: Standing rest x2 ASSESSMENT: Patient tolerated session with c/o groin pain with gait. She required standing rest x2. She was able to demonstrate independence with [id number] transfer with use of leg mechanical press operator. PLAN: Continue with PT's POC TREATMENT CODE/TIME: 25 minutes; TAx2
--- NOTE | 2018-07-11 11:12 | PTTR_ITS ---
Date of service: 07/11/18 Time of Service: 11:08 PT Notes Inpatient Physical Therapy Treatment Note Date: 07/11/18 PRECAUTIONS: WBAT on L SUBJECTIVE: Dena states that she has been working on bed transfers with use of the leg lastex operator and feels that she is getting better at it. OBJECTIVE: PAIN: Patient c/o pain in groin with gait training BED MOBILITY/TRANSFERS Supine-sit: I with HOB flat and leg lastex operator Sit-stand: I Stand-sit: I GAIT Assistive Device: FWW Weight bearing: WBAT on L Assist: S Distance: 100' + 10' x2 Deviation: Standing rest x2 ASSESSMENT: Patient tolerated session with c/o groin pain with gait. She required standing rest x2. She was able to demonstrate independence with [id number] transfer with use of leg lastex operator. PLAN: Continue with PT's POC TREATMENT CODE/TIME: 25 minutes; TAx2
[2018-07-11 11:45] VITALS: BP 151/75; PULSE 92; RESP 18; TEMP 36.1; O2SAT 99
[2018-07-11] MEDS: Magnesium Chloride 64 MG TABCR PO ×2 (12:12→22:02)
--- NOTE | 2018-07-11 13:06 | PDOC.CMPRO ---
- If Service Date Differs Date of service: 07/11/18 Time of Service: 13:06 Care Management Progress Note S/O: Dena continues to require PO antibiotics at this time. She is receiving an IV Mg bolus today and continues to require acute care. Dena also continues to have a medical consult, as well as is being followed by Dr. Cruz. Dena will most likely require swingbed placement after her acute stay for PT. A: 73 y/o female admitted 07/03/18 for (L) hip abscesses P: Dena continues to be monitored at this time, plan remains for Dena to return home with her new FWW with possible home services when ready per MD. The Hospitalist continues to follow Dena at this time. She had a PICC line placed on 07/04/18. Her friend will transport her home when ready. CM will continue to follow and support discharge planning considerations.
[2018-07-11] MEDS: traMADol 50 MG TAB PO (13:37)
--- NOTE | 2018-07-11 13:39 | PT.INTREAT ---
Date of service: 07/11/18 Time of Service: 13:39 PT Notes Inpatient Physical Therapy Treatment Note Date:07/10/18 PRECAUTIONS:WBAT L LE SUBJECTIVE: Pt sitting in chair, states she is tired and sore this morning from shower and long gait session with PT, agreeable to therapy session, asking if she can have pain medicine after session is completed. Pt states that she does not sleep in a bed at home but sleeps in a recliner chair in front of the TV. States she wants to be sure she can get in/out of her recliner at home. OBJECTIVE: PAIN: 11/06 pain left hip BED MOBILITY/TRANSFERS Rolling L/R: independent with use of bedrail Supine-sit: HOB flat, independent with leg inventory and pricing associate L LE, pt required increased time to complete transfer and 2 rest breaks due to left hip abductor weakness. Sit-supine: HOB flat, independent with leg inventory and pricing associate L LE, pt able to get out of bed more easily than into bed Sit-stand: independent with FWW Stand-sit: independent Bed-Chair: independent with FWW. Pt positioned in recliner chair, required assist to elevate lower extremities GAIT Assistive Device: FWW Weight bearing: WBAT L LE Assist: supervision Distance: 150ft x1. Deviation: slow steady step through gait pattern, decreased stride length, decreased raiza. Pt required 3 rest breaks of 30 seconds each during gait session due to fatigue and weakness in left hip abductors. THEREX: Pt has issued home exercise program handout. Performing ankle pumps, quad sets and glute sets x 20 reps this afternoon. Pt states she is also attempting heel slides. Pt not yet able to perform SLR or hip abduction movements due to hip pain and muscle weakness. ASSESSMENT: Pt is improving with bed mobility and transfers, able to get into/out of bed independently with use of leg inventory and pricing associate, she continues to have weakness with hip musculature and requires rest breaks with transfers and gait mobility, would benefit from continued LE strengthening and progressive gait training to improve strength. Pt may not require a SWING stay if she sleeps in a recliner chair at home, as she would not have to perform bed transfers. PLAN: Progress strengthening Progress gait mobility Progress transfer training TREATMENT CODE/TIME: 25min IE TAx1 TPX1 [id number] Gayla Wilburn PT
--- NOTE | 2018-07-11 13:50 | PTTR_ITS ---
Date of service: 07/11/18 Time of Service: 13:39 PT Notes Inpatient Physical Therapy Treatment Note Date:07/10/18 PRECAUTIONS:WBAT L LE SUBJECTIVE: Pt sitting in chair, states she is tired and sore this morning from shower and long gait session with PT, agreeable to therapy session, asking if she can have pain medicine after session is completed. Pt states that she does not sleep in a bed at home but sleeps in a recliner chair in front of the TV. States she wants to be sure she can get in/out of her recliner at home. OBJECTIVE: PAIN: 11/06 pain left hip BED MOBILITY/TRANSFERS Rolling L/R: independent with use of bedrail Supine-sit: HOB flat, independent with leg pharmacy district manager L LE, pt required increased time to complete transfer and 2 rest breaks due to left hip abductor weakness. Sit-supine: HOB flat, independent with leg pharmacy district manager L LE, pt able to get out of bed more easily than into bed Sit-stand: independent with FWW Stand-sit: independent Bed-Chair: independent with FWW. Pt positioned in recliner chair, required assist to elevate lower extremities GAIT Assistive Device: FWW Weight bearing: WBAT L LE Assist: supervision Distance: 150ft x1. Deviation: slow steady step through gait pattern, decreased stride length, decreased raiza. Pt required 3 rest breaks of 30 seconds each during gait session due to fatigue and weakness in left hip abductors. THEREX: Pt has issued home exercise program handout. Performing ankle pumps, quad sets and glute sets x 20 reps this afternoon. Pt states she is also attempting heel slides. Pt not yet able to perform SLR or hip abduction movements due to hip pain and muscle weakness. ASSESSMENT: Pt is improving with bed mobility and transfers, able to get into/out of bed independently with use of leg pharmacy district manager, she continues to have weakness with hip musculature and requires rest breaks with transfers and gait mobility, would benefit from continued LE strengthening and progressive gait training to improve strength. Pt may not require a SWING stay if she sleeps in a recliner chair at home, as she would not have to perform bed transfers. PLAN: Progress strengthening Progress gait mobility Progress transfer training TREATMENT CODE/TIME: 25min IE TAx1 TPX1 [id number] Gayla Wilburn PT
--- NOTE | 2018-07-11 13:51 | W.PM.PROGNOT ---
Date of Service Date of service: 07/11/18 Time of Service: 13:51 Assessment and Plan (1) Abscess of left hip: Current visit: Yes Status: Acute s/p irrigation and debridement of her left hip and soft tissues around the left hip by Dr. Cruz. Surgical cultures growing pseudomonas. She was initially on Zosyn and Vanco, both have been discontinued. She is now on oral Cipro 500 BID based [place] [facility] [place] was [facility] with Dr. Still at [facility]. CRP increased slightly today. Will reassess in 4 days to determine trend. Continue to monitor daily CBC, BMP. Will likely require abx for 6 weeks. Ortho continues to follow as well. (2) Acute on chronic renal failure: Current visit: Yes Status: Acute Creatinine improved today to 1.03. She is back on her usual HCTZ, ARB and januvia. Continue to monitor renal function. (3) Hypomagnesemia: Current visit: Yes Status: Acute Magnesium down again today to 1.7. Supplement and follow magnesium level. (4) Essential hypertension: Current visit: No Status: Chronic Blood pressure within acceptable range on ARB and HCTZ. Continue to monitor renal function and BP. (5) DVT prophylaxis: Current visit: No Status: Acute Subcutaneous heparin. (6) Discharge planning issues: Current visit: Yes Status: Acute She is a FULL code. She may need home health upon discharge. She may need SWB vs rehab prior to returning home. This case was discussed with Dr. Escoto who is in agreement. Subjective Interval history since last seen: Dena is a pleasant 73 year old female, currently being treated for abscess of the left hip with surgical culture growing Pseudomonas. She reports that her pain has improved today. She has been icing her left hip. She has been ambulating with PT. She took a shower today, she feels better. She is eating and drinking well. Her bowels and bladder are functioning well, she is having regular bowel movements. She denies any other concerns. Exam Narrative Exam Narrative: General: Overweight female, sitting up in the chair, legs elevated, in NAD. Pleasant and cooperative, talkative. HEENT: normocephalic, atraumatic, pupils equal and round, mucous membranes moist. Heart: regular rate and rhythm, no murmur appreciated. Lungs: Respirations even and unlabored, clear to auscultation throughout. GI: abdomen round, soft, nontender, nondistended, with normoacitve bowel sounds. Extremities: L hip incision with dressing intact with small amount of bloody drainage. Incision well approximated, no erythema, no drainage. BLEs well perfused with +1 pitting edema bilaterally. Peripheral pulses palpable. Objective Objective Clinical Data: Abnormal lab results 07/11/18 07/11/18 07/11/18 Range/Units 06:15 06:15 06:15 RBC 2.78 L (4.00-5.20) m/cumm Hgb 8.1 L (12.0-15.5) g/dL Hct 26.1 L (36.0-46.0) % MCHC 31.0 L (32.0-36.0) g/dL Creatinine 1.03 H (0.55-1.02) mg/dL Glucose 138 H (70-100) mg/dL Magnesium 1.7 L (1.8-2.4) mg/dL C-Reactive Protein 6.04 H (0.0-0.3) mg/dL Vital Signs Temperature 36.1 C L 07/11/18 11:45 Temperature Source Tympanic 07/11/18 11:45 Pulse 92 H 07/11/18 11:45 Pulse Rhythm Regular 07/11/18 11:45 Respiratory Rate 18 07/11/18 11:45 Respiratory Effort 07/11/18 11:45 Respiratory Depth Normal 07/11/18 11:45 Respiratory Pattern Irregular 07/11/18 11:45 Blood Pressure 151/75 H 07/11/18 11:45 Pulse Oximetry 99 07/11/18 11:45 Respiratory End-tidal CO2 36 07/05/18 14:59 Oxygen Delivery Method Room Air 07/11/18 11:45 Oxygen Flow Rate 0 07/11/18 11:45 Pain Level 3 07/11/18 13:37 Comment 07/10/18 07:35 Intake & Output 07/10/18 07/11/18 07/11/18 23:59 11:59 23:59 Intake Total 300 / 920 350 / 590 240 / 590 Balance 300 / 920 350 / 590 240 / 590 Intake: IV 60 / 60 100 / 100 Oral 240 / 860 250 / 490 240 / 490 Other: Urine Color Yellow Urine Appearance Clear Clear Urine Odor None Comment passed urine independently in the tiolet patient has been indepandant to bathroom Stool Characteristics Soft Voiding Methods Toilet Laboratory Results WBC 5.61 k/cumm (4.4-10.8) 07/11/18 06:15 RBC 2.78 m/cumm (4.00-5.20) L 07/11/18 06:15 Hgb 8.1 g/dL (12.0-15.5) L 07/11/18 06:15 Hct 26.1 % (36.0-46.0) L 07/11/18 06:15 MCV 93.9 fL (80-95) 07/11/18 06:15 MCH 29.1 pg (27.0-33.0) 07/11/18 06:15 MCHC 31.0 g/dL (32.0-36.0) L 07/11/18 06:15 RDW 14.1 % (11.7-14.6) 07/11/18 06:15 Plt Count 295 x1000/uL (130-400) 07/11/18 06:15 MPV 8.9 fL (8.0-11.0) 07/11/18 06:15 Immature Gran % 0.4 07/11/18 06:15 Neutrophils % 64.2 07/11/18 06:15 Lymphocytes % 23.2 07/11/18 06:15 Monocytes % 9.3 07/11/18 06:15 Eosinophils % 2.7 07/11/18 06:15 Basophils % 0.2 07/11/18 06:15 Absolute Neutrophils 3.61 k/cumm (1.2-6.7) 07/11/18 06:15 Absolute Lymphocytes 1.30 k/cumm (1.2-3.4) 07/11/18 06:15 Absolute Monocytes 0.52 k/cumm (0.11-0.7) 07/11/18 06:15 Absolute Eosinophils 0.15 k/cumm (0.0-0.7) 07/11/18 06:15 Absolute Basophils 0.01 k/cumm (0.0-0.2) 07/11/18 06:15 Differential Comment Rbc morph reviewed 07/09/18 06:30 RBC Morphology Normal 07/09/18 06:30 Sodium 141 mmol/L (136-145) 07/11/18 06:15 Potassium 3.6 mmol/L (3.5-5.1) 07/11/18 06:15 Chloride 103 mmol/L (98-107) 07/11/18 06:15 Carbon Dioxide 29.4 mmol/L (21.0-32.0) 07/11/18 06:15 Anion Gap 8.6 mmol/L (3-11) 07/11/18 06:15 BUN 15 mg/dL (7-18) 07/11/18 06:15 Creatinine 1.03 mg/dL (0.55-1.02) H 07/11/18 06:15 Estimated GFR/1.73 m2 52.53 (mL/min/1.73m2) 07/11/18 06:15 Glucose 138 mg/dL (70-100) H 07/11/18 06:15 Calcium 9.0 mg/dL (8.5-10.1) 07/11/18 06:15 Magnesium 1.7 mg/dL (1.8-2.4) L 07/11/18 06:15 Creatine Kinase 46 U/L (26-192) 07/04/18 06:40 C-Reactive Protein 6.04 mg/dL (0.0-0.3) H 07/11/18 06:15 Vancomycin Trough 9.7 ug/mL (10.0-20.0) L 07/05/18 15:23 Lyme Disease Antibody Negative 07/04/18 06:40
--- NOTE | 2018-07-11 14:41 | CHAPLAIN ---
Dena was having lunch when I visited. She said she may stay here on swing bed for a while. Yesterday she said was a difficult day because of her pain lever, and no one was listening to me. She is an [employer] employee and has had several coworkers visit her. She is also a member of the [employer] and her procurement agent, Rev. Kolby Johnson has been visiting and calling Dnea. Dena said she is worried about returning home alone until she feel more confident in getting around. Today has been a better day, she said, although Dr. Cruz told her there is the possibility that she might need to go to [facility] for furhter care.
[2018-07-11 15:27] VITALS: BP 143/77; PULSE 103; RESP 18; TEMP 37.2; O2SAT 98
[2018-07-11 19:27] VITALS: BP 144/76; PULSE 98; RESP 20; TEMP 37.1; O2SAT 98
[2018-07-11] MEDS: Acetaminophen 325 MG TAB 650 MG PO (20:38)
[2018-07-11 23:53] VITALS: BP 137/75; PULSE 88; RESP 18; TEMP 37.2; O2SAT 96
[2018-07-12 04:00] VITALS: BP 121/78; PULSE 80; RESP 18; TEMP 36.8; O2SAT 99
[2018-07-12 07:18] LABS: Abs Immature Grans 0.03 k/cumm (0.0-0.09); Absolute Basophil Count 0.01 k/cumm (0.0-0.2); Absolute Eosinophil Count 0.18 k/cumm (0.0-0.7); Absolute Lymphocyte Count 1.43 k/cumm (1.2-3.4); Absolute Monocyte Count 0.48 k/cumm (0.11-0.7); Absolute Neutrophil Count 3.82 k/cumm (1.2-6.7); Basophils % 0.2; HCT 26.3 % (36.0-46.0); HGB 8.1 g/dL (12.0-15.5); Immature Grans % 0.5; Mean Corp. HGB Concentration 30.8 g/dL (32.0-36.0); Mean Corpuscular Hemoglobin 28.9 pg (27.0-33.0); Mean Corpuscular Volume 93.9 fL (80-95); Mean Platelet Volume 8.7 fL (8.0-11.0); Monocytes % 8.1; Neutrophils % 64.2; Platelet Count 298 x1000/uL (130-400); RBC Distribution Width 14.3 % (11.7-14.6); White Blood Cell Count 5.95 k/cumm (4.4-10.8)
[2018-07-12 07:30] LABS: Anion Gap 9.4 mmol/L (3-11); BUN 14 mg/dL (7-18); CO2 29.6 mmol/L (21.0-32.0); CREATININE 1.08 mg/dL (0.55-1.02); Calcium 8.9 mg/dL (8.5-10.1); Chloride 102 mmol/L (98-107); Estimated GFR 49.73 (mL/min/1.73m2); Glucose 125 mg/dL (70-100); Magnesium 1.5 mg/dL (1.8-2.4); Potassium 3.7 mmol/L (3.5-5.1); Sodium 141 mmol/L (136-145)
[2018-07-12 07:53] VITALS: BP 133/56; PULSE 104; RESP 24; TEMP 36.9; O2SAT 99
[2018-07-12] MEDS: Enoxaparin 40 MG/0.4 ML SYR SC (08:23)
[2018-07-12] MEDS: Nystatin POWDER 60 GM JAR TP ×3 (08:23→19:42)
[2018-07-12] MEDS: Normal Saline Flush 10 ML SYR IVP (08:24)
[2018-07-12] MEDS: Insulin Aspart 300 UNITS/3 ML PEN SC ×3 (08:25→21:57)
[2018-07-12] MEDS: Losartan 50 MG TAB 75 MG PO (08:26)
[2018-07-12] MEDS: Lactobacillus Acidophilus CAP 1 CAP PO ×3 (08:26→19:42)
[2018-07-12] MEDS: Ciprofloxacin 500 MG TAB PO ×2 (08:26→19:42)
[2018-07-12] MEDS: sitaGLIPtin 25 MG TABLET 50 MG PO (08:26)
[2018-07-12] MEDS: Atorvastatin 10 MG TAB PO (08:27)
[2018-07-12] MEDS: POTASSIUM CHLORIDE 20 MEQ, POTASSIUM CHLORIDE 10 MEQ 30 MEQ PO (08:58)
[2018-07-12] MEDS: MAGNESIUM SULFATE 2 GM/50 ML BAG IVPB (08:58)
[2018-07-12] MEDS: Magnesium Chloride 64 MG TABCR PO ×2 (10:49→21:55)
[2018-07-12 11:45] VITALS: BP 129/65; PULSE 104; RESP 24; TEMP 37; O2SAT 96
--- NOTE | 2018-07-12 11:47 | PT.INTREAT ---
Date of service: 07/12/18 Time of Service: 11:47 PT Notes Date:07/12/18 PRECAUTIONS:WBAT L LE SUBJECTIVE: Pt sitting in chair, agreeable to PT session. OBJECTIVE: PAIN: c/o mild pain left hip, not rated. BED MOBILITY/TRANSFERS Rolling L/R: independent with use of bedrail Supine-sit: HOB flat, independent with leg lithographer apprentice L LE Sit-supine: HOB flat, independent with leg lithographer apprentice L LE Sit-stand: independent with FWW Stand-sit: independent Bed-Chair: independent with FWW. Pt positioned in recliner chair, required assist to elevate lower extremities TOILETING independent with FWW into bathroom, independent toileting GAIT Assistive Device: FWW Weight bearing: WBAT L LE Assist: supervision Distance: 150ft x1. Deviation: slow steady step through gait pattern, no rest breaks. ASSESSMENT: Pt peforming mobility independently, do not anticipate she will require a SWING stay after acute admission. Will continue PT over weekend for strengthening L LE and strengthening gait mobility. PLAN: Progress strengthening Progress gait mobility TREATMENT CODE/TIME: 25min TAx2 1140 Gayla Wilburn PT
--- NOTE | 2018-07-12 11:50 | PTTR_ITS ---
Date of service: 07/12/18 Time of Service: 11:47 PT Notes Date:07/12/18 PRECAUTIONS:WBAT L LE SUBJECTIVE: Pt sitting in chair, agreeable to PT session. OBJECTIVE: PAIN: c/o mild pain left hip, not rated. BED MOBILITY/TRANSFERS Rolling L/R: independent with use of bedrail Supine-sit: HOB flat, independent with leg cycle liaison L LE Sit-supine: HOB flat, independent with leg cycle liaison L LE Sit-stand: independent with FWW Stand-sit: independent Bed-Chair: independent with FWW. Pt positioned in recliner chair, required assist to elevate lower extremities TOILETING independent with FWW into bathroom, independent toileting GAIT Assistive Device: FWW Weight bearing: WBAT L LE Assist: supervision Distance: 150ft x1. Deviation: slow steady step through gait pattern, no rest breaks. ASSESSMENT: Pt peforming mobility independently, do not anticipate she will require a SWING stay after acute admission. Will continue PT over weekend for strengthening L LE and strengthening gait mobility. PLAN: Progress strengthening Progress gait mobility TREATMENT CODE/TIME: 25min TAx2 1140 Gayla Wilburn PT
--- NOTE | 2018-07-12 13:56 | PT.INTREAT ---
Date of service: 07/12/18 Time of Service: 13:56 PT Notes Date:07/12/18 PRECAUTIONS:WBAT L LE SUBJECTIVE: Pt sitting in chair, states she is more sore this afternoon than this morning OBJECTIVE: PAIN: c/o mild pain left hip, not rated. BED MOBILITY/TRANSFERS Sit-stand: independent with FWW Stand-sit: independent GAIT Assistive Device: FWW Weight bearing: WBAT L LE Assist: supervision Distance: 150ft x1. Deviation: slow steady step through gait pattern, 2 rest breaks. ASSESSMENT: More tired this afternoon than this morning requiring 2 rest breaks with gait training. Continue progressive strengthening over weekend. PLAN: Progress strengthening Progress gait mobility TREATMENT CODE/TIME: 24min TAx2 6000 Gayla Wilburn PT
--- NOTE | 2018-07-12 14:35 | PDOC.CMPRO ---
- If Service Date Differs Date of service: 07/12/18 Time of Service: 14:35 Care Management Progress Note S/O: Dena is sitting up in her recliner with her legs elevated this afternoon when this display card writer visits. Dena states that she is feeling as good as I'm going to. Dena was receptive to discussion, stating that she was doing well with PT, though her jose are still bothering her. Dena also states that the new REFINERY OPERATOR HELPER of [facility] met with her today, and she felt as though this was a nice gesture. Discussed DC planning, Dena states that she is waiting until Sunday as Dr. Cruz stated that would be the day for laboratory testing, as she may have to go to [facility] for further surgery. In morning meeting Gayla PT, states that Dena will not require a swingbed stay at this time, as she is doing well with transfers, and will be sleeping in her recliner when she gets home. A: 73 y/o female admitted 07/03/18 for (L) hip abscesses P: Dena continues to be monitored at this time, plan remains for Dena to return home with her new FWW with possible home services when ready per MD. The Hospitalist continues to follow Dena at this time. She had a PICC line placed on 07/04/18. Her friend will transport her home when ready. CM will continue to follow and support discharge planning considerations.
--- NOTE | 2018-07-12 14:45 | CMPROGNOTE_ITS ---
- If Service Date Differs Date of service: 07/12/18 Time of Service: 14:35 Care Management Progress Note S/O: Dena is sitting up in her recliner with her legs elevated this afternoon when this sign writer hand visits. Dena states that she is feeling as good as I'm going to. Dena was receptive to discussion, stating that she was doing well with PT, though her jose are still bothering her. Dena also states that the new CHURN OPERATOR of [facility] met with her today, and she felt as though this was a nice gesture. Discussed DC planning, Dena states that she is waiting until Sunday as Dr. Cruz stated that would be the day for laboratory testing, as she may have to go to [facility] for further surgery. In morning meeting Gayla PT, states that Dena will not require a swingbed stay at this time, as she is doing well with transfers, and will be sleeping in her recliner when she gets home. A: 73 y/o female admitted 07/03/18 for (L) hip abscesses P: Dena continues to be monitored at this time, plan remains for Dena to return home with her new FWW with possible home services when ready per MD. The Hospitalist continues to follow Dena at this time. She had a PICC line placed on 07/04/18. Her friend will transport her home when ready. CM will continue to follow and support discharge planning considerations.
[2018-07-12 15:20] VITALS: BP 152/64; PULSE 102; RESP 19; TEMP 37; O2SAT 95
--- NOTE | 2018-07-12 15:46 | CHAPLAIN ---
Dena was in her recliner when I visited. She said is waiting until Sunday to make a decision with Dr. Cruz about next steps for her. She said she has been walking with PT, but is anxious about going home because she lives alone. Coworkers have been visiting her and Dena seems to enjoy the company. Her kai [place], Rev. Kolby Johnson from the [facility] continues to be in touch with her.
--- NOTE | 2018-07-12 15:54 | PGE_ITS ---
Date of Service Date of service: 07/12/18 Time of Service: 15:52 Assessment and Plan (1) Abscess of left hip: Current visit: Yes Status: Acute s/p irrigation and debridement of her left hip and soft tissues around the left hip by Dr. Cruz. Surgical cultures growing pseudomonas. She was initially on Zosyn and Vanco, both have been discontinued. She is now on oral Cipro 500 BID (day #5) based on recommendations from ID at [facility], was was previously discussed with Dr. Still at [facility] ID. CRP increased slightly yesterday. Will reassess in 3 days to determine trend. If her CRP is increasing at that time, Dr. Cruz will contact [facility] for further recommendations. Continue to monitor daily CBC, BMP. Will likely require abx for 6 weeks. Ortho continues to follow. (2) Acute on chronic renal failure: Current visit: Yes Status: Acute Creatinine increased slightly today as she is back on her usual HCTZ, ARB and januvia. Continue to monitor renal function. (3) Hypomagnesemia: Current visit: Yes Status: Acute Magnesium down again today to 1.5. Supplement and follow magnesium level. (4) Essential hypertension: Current visit: No Status: Chronic Blood pressure within acceptable range on ARB and HCTZ. Continue to monitor renal function and BP. (5) DVT prophylaxis: Current visit: No Status: Acute Subcutaneous heparin. (6) Discharge planning issues: Current visit: Yes Status: Acute She is a FULL code. She may need home health upon discharge. This case was discussed with Dr. Escoto who is in agreement. Subjective Interval history since last seen: Dena is a pleasant 73 year old female, currently being treated for abscess of the left hip with surgical culture growing Pseudomonas. She reports that her pain has improved again today. She has been icing her left hip/groin which helps the discomfort. She has been ambulating with PT. She is sore after ambulating. She is eating and drinking well. Her bowels and bladder are functioning well, she is having regular bowel movements. She denies any other concerns. Exam Narrative Exam Narrative: General: Overweight female, sitting up in the chair, legs elevated, in NAD. Pleasant and cooperative, talkative. HEENT: normocephalic, atraumatic, pupils equal and round, mucous membranes moist. Heart: regular rate and rhythm, no murmur appreciated. Lungs: Respirations even and unlabored, clear to auscultation throughout. GI: abdomen round, soft, nontender, nondistended, with normoacitve bowel sounds. Extremities: L hip incision with clean and dry dressing intact. Incision not viewed today. BLEs well perfused with +1 pitting edema bilaterally, edema improved from yesterday. Peripheral pulses palpable. Objective Objective Clinical Data: Abnormal lab results 07/12/18 07/12/18 Range/Units 06:24 06:24 RBC 2.80 L (4.00-5.20) m/cumm Hgb 8.1 L (12.0-15.5) g/dL Hct 26.3 L (36.0-46.0) % MCHC 30.8 L (32.0-36.0) g/dL Creatinine 1.08 H (0.55-1.02) mg/dL Glucose 125 H (70-100) mg/dL Magnesium 1.5 L (1.8-2.4) mg/dL Vital Signs Temperature 37.0 C 07/12/18 11:45 Temperature Source Tympanic 07/12/18 11:45 Pulse 104 H 07/12/18 11:45 Pulse Rhythm Regular 07/12/18 10:12 Respiratory Rate 24 07/12/18 11:45 Respiratory Effort 07/12/18 10:12 Respiratory Depth Normal 07/12/18 10:12 Respiratory Pattern Irregular 07/12/18 10:12 Blood Pressure 129/65 07/12/18 11:45 Pulse Oximetry 96 07/12/18 11:45 Respiratory End-tidal CO2 36 07/05/18 14:59 Oxygen Delivery Method Room Air 07/12/18 11:45 Oxygen Flow Rate 0 07/12/18 11:45 Pain Level 3 07/12/18 11:45 Comment 07/12/18 07:53 Intake & Output 07/11/18 07/12/18 07/12/18 23:59 11:59 23:59 Intake Total 480 / 830 410 / 650 240 / 650 Balance 480 / 830 410 / 650 240 / 650 Weight 111.3 kg Intake: IV 50 / 50 Oral 480 / 730 360 / 600 240 / 600 Other: Urine Color Yellow Urine Appearance Clear Urine Odor None Comment as reported by patient Stool Size Moderate Stool Characteristics Soft Formed Voiding Methods Toilet Laboratory Results WBC 5.95 k/cumm (4.4-10.8) 07/12/18 06:24 RBC 2.80 m/cumm (4.00-5.20) L 07/12/18 06:24 Hgb 8.1 g/dL (12.0-15.5) L 07/12/18 06:24 Hct 26.3 % (36.0-46.0) L 07/12/18 06:24 MCV 93.9 fL (80-95) 07/12/18 06:24 MCH 28.9 pg (27.0-33.0) 07/12/18 06:24 MCHC 30.8 g/dL (32.0-36.0) L 07/12/18 06:24 RDW 14.3 % (11.7-14.6) 07/12/18 06:24 Plt Count 298 x1000/uL (130-400) 07/12/18 06:24 MPV 8.7 fL (8.0-11.0) 07/12/18 06:24 Immature Gran % 0.5 07/12/18 06:24 Neutrophils % 64.2 07/12/18 06:24 Lymphocytes % 24.0 07/12/18 06:24 Monocytes % 8.1 07/12/18 06:24 Eosinophils % 3.0 07/12/18 06:24 Basophils % 0.2 07/12/18 06:24 Absolute Neutrophils 3.82 k/cumm (1.2-6.7) 07/12/18 06:24 Absolute Lymphocytes 1.43 k/cumm (1.2-3.4) 07/12/18 06:24 Absolute Monocytes 0.48 k/cumm (0.11-0.7) 07/12/18 06:24 Absolute Eosinophils 0.18 k/cumm (0.0-0.7) 07/12/18 06:24 Absolute Basophils 0.01 k/cumm (0.0-0.2) 07/12/18 06:24 Differential Comment Rbc morph reviewed 07/09/18 06:30 RBC Morphology Normal 07/09/18 06:30 Sodium 141 mmol/L (136-145) 07/12/18 06:24 Potassium 3.7 mmol/L (3.5-5.1) 07/12/18 06:24 Chloride 102 mmol/L (98-107) 07/12/18 06:24 Carbon Dioxide 29.6 mmol/L (21.0-32.0) 07/12/18 06:24 Anion Gap 9.4 mmol/L (3-11) 07/12/18 06:24 BUN 14 mg/dL (7-18) 07/12/18 06:24 Creatinine 1.08 mg/dL (0.55-1.02) H 07/12/18 06:24 Estimated GFR/1.73 m2 49.73 (mL/min/1.73m2) 07/12/18 06:24 Glucose 125 mg/dL (70-100) H 07/12/18 06:24 Calcium 8.9 mg/dL (8.5-10.1) 07/12/18 06:24 Magnesium 1.5 mg/dL (1.8-2.4) L 07/12/18 06:24 Creatine Kinase 46 U/L (26-192) 07/04/18 06:40 C-Reactive Protein 6.04 mg/dL (0.0-0.3) H 07/11/18 06:15 Vancomycin Trough 9.7 ug/mL (10.0-20.0) L 07/05/18 15:23 Lyme Disease Antibody Negative 07/04/18 06:40
[2018-07-12 19:44] VITALS: BP 137/79; PULSE 101; RESP 18; TEMP 37.2; O2SAT 98
[2018-07-12] MEDS: Acetaminophen 325 MG TAB 650 MG PO (22:42)
[2018-07-13 07:14] LABS: Anion Gap 11.9 mmol/L (3-11); BUN 16 mg/dL (7-18); CO2 27.1 mmol/L (21.0-32.0); CREATININE 1.17 mg/dL (0.55-1.02); Chloride 102 mmol/L (98-107); Estimated GFR 45.34 (mL/min/1.73m2); Glucose 133 mg/dL (70-100); Magnesium 1.8 mg/dL (1.8-2.4); Potassium 3.9 mmol/L (3.5-5.1); Sodium 141 mmol/L (136-145)
[2018-07-13 07:15] LABS: Abs Immature Grans 0.05 k/cumm (0.0-0.09); Absolute Basophil Count 0.02 k/cumm (0.0-0.2); Absolute Eosinophil Count 0.21 k/cumm (0.0-0.7); Absolute Lymphocyte Count 2.47 k/cumm (1.2-3.4); Absolute Monocyte Count 0.69 k/cumm (0.11-0.7); Absolute Neutrophil Count 5.53 k/cumm (1.2-6.7); Basophils % 0.2; Eosinophils % 2.3; HCT 29.1 % (36.0-46.0); Immature Grans % 0.6; Lymphocytes % 27.5; Mean Corp. HGB Concentration 30.9 g/dL (32.0-36.0); Mean Corpuscular Hemoglobin 29.1 pg (27.0-33.0); Mean Corpuscular Volume 94.2 fL (80-95); Mean Platelet Volume 8.9 fL (8.0-11.0); Monocytes % 7.7; Neutrophils % 61.7; Platelet Count 385 x1000/uL (130-400); RBC 3.09 m/cumm (4.00-5.20); RBC Distribution Width 14.7 % (11.7-14.6); White Blood Cell Count 8.97 k/cumm (4.4-10.8)
[2018-07-13 07:55] VITALS: BP 128/80; PULSE 92; RESP 18; TEMP 36.6; O2SAT 98
[2018-07-13] MEDS: Nystatin POWDER 60 GM JAR TP ×3 (08:31→20:01)
[2018-07-13] MEDS: sitaGLIPtin 25 MG TABLET 50 MG PO (08:32)
[2018-07-13] MEDS: Losartan 50 MG TAB 75 MG PO (08:32)
[2018-07-13] MEDS: Enoxaparin 40 MG/0.4 ML SYR SC (08:32)
[2018-07-13] MEDS: Atorvastatin 10 MG TAB PO (08:32)
[2018-07-13] MEDS: Lactobacillus Acidophilus CAP 1 CAP PO ×3 (08:32→20:00)
[2018-07-13] MEDS: Ciprofloxacin 500 MG TAB PO ×2 (08:32→20:01)
--- NOTE | 2018-07-13 08:33 | PT.INTREAT ---
Date of service: 07/13/18 Time of Service: 08:33 PT Notes 07/13/18 SUBJECTIVE: Dena stating she is stiff in the AM hours. Complains of achiness through the hip. OBJECTIVE: Pt up and about her room this morning. Agreeable to PT treatment. TRANSFERS: Sit to stand: I Stand to sit: I GAIT: Device: FWW Weight bearing: WBAT L Assist: S Distance: 150' Deviation: 2 stand rest breaks Therex: Pt is independent with her strengthening exercises. ASSESSMENT: Tolerating gait and mobility well. Gait limited by discomfort in the hip requiring stand rest breaks throughout. PLAN: Continue per PT's POC. Direct time: 20 minutes IOANA Joshi, ENGINE RESEARCH ENGINEER
[2018-07-13 09:18] VITALS: BP 129/80; PULSE 92; RESP 18; TEMP 36.8; O2SAT 98
[2018-07-13] MEDS: Magnesium Chloride 64 MG TABCR PO ×2 (10:28→22:04)
[2018-07-13] MEDS: Normal Saline Flush 10 ML SYR IVP ×2 (12:06→15:44)
[2018-07-13] MEDS: Insulin Aspart 300 UNITS/3 ML PEN SC ×2 (12:06→22:04)
--- NOTE | 2018-07-13 15:06 | PGE_ITS ---
Date of Service Date of service: 07/13/18 Time of Service: 14:57 Assessment and Plan (1) Abscess of left hip: Current visit: Yes Status: Acute POD #7 s/p irrigation and debridement of her left hip and soft tissues around the left hip by Dr. Cruz. Surgical cultures growing pseudomonas. She was initially on Zosyn and Vanco, both have been discontinued. She is now on oral Cipro 500 BID (day #5) based on recommendations from ID at [facility], was was previously discussed with Dr. Still at [facility] ID. CRP increased 07/11. Plan is to reassess CRP on 1217 to get a trend. If CRP is increasing at that time, Dr. Cruz will contact [facility] for further recommendations she will likely need transfer for complicated surgery. Will likely require abx for 6 weeks. Ortho continues to follow. (2) Acute on chronic renal failure: Current visit: Yes Status: Acute Creatinine increased slightly but not significantly over the past 2 days as she is back on her usual HCTZ, ARB. Repeat renal function with labs Sunday (3) Hypomagnesemia: Current visit: Yes Status: Acute Magnesium finally normal today at 1.8. Repeat Sunday and supplement as needed.. (4) Essential hypertension: Current visit: No Status: Chronic Blood pressure within acceptable range on ARB and HCTZ. Continue to monitor renal function and BP. (5) Anemia: Current visit: Yes Status: Chronic Likely related to chronic inflammation with this infection brewing for months, as well as some blood loss around surgery. Improving. Follow her labs on Sunday. (6) DVT prophylaxis: Current visit: No Status: Acute Subcutaneous heparin. (7) Discharge planning issues: Current visit: Yes Status: Acute She is a FULL code. She may need home health upon discharge. Subjective Patient reports: no new complaints, feels better, pain is less, tolerating a regular diet, voiding w/o difficulty and afebrile; denies diarrhea, nausea, vomiting and shortness of breath Interval history since last seen: Dena states she feels better, she is able to move her leg more and was up walking with the walker. He feels a little frustrated with dealing with this problem for so long, but understands the management plan and the rationale for that plan. Exam Narrative Exam Narrative: General: Overweight female, sitting up in the chair wiyh legs elevated, but able to sit up, in NAD. Pleasant and cooperative, talkative. HEENT: mucous membranes moist. Heart: regular rate and rhythm, no murmur appreciated. Lungs: Respirations even and unlabored, clear to auscultation throughout. GI: abdomen round, soft, nontender, nondistended, with normoacitve bowel sounds. Extremities: L hip incision not viewed today. BLEs well perfused with +1 pitting edema bilaterally, to palpation. Peripheral pulses palpable. Objective Objective Clinical Data: Abnormal lab results 07/13/18 07/13/18 Range/Units 06:00 06:00 RBC 3.09 L (4.00-5.20) m/cumm Hgb 9.0 L (12.0-15.5) g/dL Hct 29.1 L (36.0-46.0) % MCHC 30.9 L (32.0-36.0) g/dL RDW 14.7 H (11.7-14.6) % Anion Gap 11.9 H (3-11) mmol/L Creatinine 1.17 H (0.55-1.02) mg/dL Glucose 133 H (70-100) mg/dL Vital Signs Temperature 36.8 C 07/13/18 09:18 Temperature Source Tympanic 07/13/18 09:18 Pulse 92 H 07/13/18 09:18 Pulse Rhythm Regular 07/13/18 09:11 Respiratory Rate 18 07/13/18 09:18 Respiratory Effort 07/13/18 09:11 Respiratory Depth Normal 07/13/18 09:11 Respiratory Pattern Normal 07/13/18 09:11 Blood Pressure 129/80 07/13/18 09:18 Pulse Oximetry 98 07/13/18 09:18 Respiratory End-tidal CO2 36 07/05/18 14:59 Oxygen Delivery Method Room Air 07/13/18 09:18 Oxygen Flow Rate 0 07/13/18 09:18 Pain Level 3 07/12/18 11:45 Comment 07/13/18 09:18 Intake & Output 07/12/18 07/13/18 07/13/18 23:59 11:59 23:59 Intake Total 240 / 650 920 / 1160 240 / 1160 Balance 240 / 650 920 / 1160 240 / 1160 Weight 111.1 kg Intake: IV 30 / 30 Oral 240 / 600 890 / 1130 240 / 1130 Other: Urine Color Yellow Yellow Urine Appearance Clear Clear Urine Odor Normal Comment pt voided in toilet x1 patient is indepandant to the bathroom, denies any symptoms Stool Size Moderate Stool Characteristics Soft Voiding Methods Toilet Toilet Laboratory Results WBC 8.97 k/cumm (4.4-10.8) D 07/13/18 06:00 RBC 3.09 m/cumm (4.00-5.20) L 07/13/18 06:00 Hgb 9.0 g/dL (12.0-15.5) L 07/13/18 06:00 Hct 29.1 % (36.0-46.0) L 07/13/18 06:00 MCV 94.2 fL (80-95) 07/13/18 06:00 MCH 29.1 pg (27.0-33.0) 07/13/18 06:00 MCHC 30.9 g/dL (32.0-36.0) L 07/13/18 06:00 RDW 14.7 % (11.7-14.6) H 07/13/18 06:00 Plt Count 385 x1000/uL (130-400) 07/13/18 06:00 MPV 8.9 fL (8.0-11.0) 07/13/18 06:00 Immature Gran % 0.6 07/13/18 06:00 Neutrophils % 61.7 07/13/18 06:00 Lymphocytes % 27.5 07/13/18 06:00 Monocytes % 7.7 07/13/18 06:00 Eosinophils % 2.3 07/13/18 06:00 Basophils % 0.2 07/13/18 06:00 Absolute Neutrophils 5.53 k/cumm (1.2-6.7) 07/13/18 06:00 Absolute Lymphocytes 2.47 k/cumm (1.2-3.4) 07/13/18 06:00 Absolute Monocytes 0.69 k/cumm (0.11-0.7) 07/13/18 06:00 Absolute Eosinophils 0.21 k/cumm (0.0-0.7) 07/13/18 06:00 Absolute Basophils 0.02 k/cumm (0.0-0.2) 07/13/18 06:00 Differential Comment Rbc morph reviewed 07/09/18 06:30 RBC Morphology Normal 07/09/18 06:30 Sodium 141 mmol/L (136-145) 07/13/18 06:00 Potassium 3.9 mmol/L (3.5-5.1) 07/13/18 06:00 Chloride 102 mmol/L (98-107) 07/13/18 06:00 Carbon Dioxide 27.1 mmol/L (21.0-32.0) 07/13/18 06:00 Anion Gap 11.9 mmol/L (3-11) H 07/13/18 06:00 BUN 16 mg/dL (7-18) 07/13/18 06:00 Creatinine 1.17 mg/dL (0.55-1.02) H 07/13/18 06:00 Estimated GFR/1.73 m2 45.34 (mL/min/1.73m2) 07/13/18 06:00 Glucose 133 mg/dL (70-100) H 07/13/18 06:00 Calcium 9.0 mg/dL (8.5-10.1) 07/13/18 06:00 Magnesium 1.8 mg/dL (1.8-2.4) 07/13/18 06:00 Creatine Kinase 46 U/L (26-192) 07/04/18 06:40 C-Reactive Protein 6.04 mg/dL (0.0-0.3) H 07/11/18 06:15 Vancomycin Trough 9.7 ug/mL (10.0-20.0) L 07/05/18 15:23 Lyme Disease Antibody Negative 07/04/18 06:40
--- NOTE | 2018-07-13 15:33 | PDOC.CMPRO ---
Care Management Progress Note S/O: Dena was ambulating in the hallway with a FWW. Cheerful and making a few jokes as she walked. Says she is just doing her best and waiting to see what will happen on Sunday when more testing is done. A: 73 y/o female admitted 07/03/18 for (L) hip abscesses P: Dena continues to be monitored at this time, plan remains for Dena to return home with her new FWW with possible home services when ready per MD.
[2018-07-13 15:57] VITALS: BP 106/75; PULSE 98; RESP 24; TEMP 37.2; O2SAT 99
[2018-07-13] MEDS: traMADol 50 MG TAB PO (16:54)
[2018-07-13 20:05] VITALS: BP 128/61; PULSE 98; RESP 18; TEMP 37.1; O2SAT 99
[2018-07-13] MEDS: Acetaminophen 325 MG TAB 650 MG PO (23:28)
[2018-07-14 07:35] VITALS: BP 108/64; PULSE 109; RESP 17; TEMP 36.9; O2SAT 99
[2018-07-14] MEDS: Atorvastatin 10 MG TAB PO (08:06)
[2018-07-14] MEDS: Ciprofloxacin 500 MG TAB PO ×2 (08:06→19:44)
[2018-07-14] MEDS: Lactobacillus Acidophilus CAP 1 CAP PO ×3 (08:06→19:44)
[2018-07-14] MEDS: sitaGLIPtin 25 MG TABLET 50 MG PO (08:06)
[2018-07-14] MEDS: Enoxaparin 40 MG/0.4 ML SYR SC (08:07)
[2018-07-14] MEDS: Nystatin POWDER 60 GM JAR TP ×2 (08:07→19:44)
[2018-07-14] MEDS: Insulin Aspart 300 UNITS/3 ML PEN SC ×2 (08:07→21:48)
[2018-07-14] MEDS: Losartan 50 MG TAB 75 MG PO (08:07)
--- NOTE | 2018-07-14 09:24 | PT.INTREAT ---
Date of service: 07/14/18 Time of Service: 09:24 PT Notes 07/14/18 SUBJECTIVE: Dena stating she had a good night. She is getting in and out of her bed easier and she did not have to use the leg cloth grader supervisor to get into bed last night. She was able to take a second walk yesterday but her hip was quite achy afterwards. OBJECTIVE: Seated in recliner. Agreeable to PT treatment. TRANSFERS: Sit to stand: I Stand to sit: I GAIT: Device: FWW Weight bearing: WBAT L Assist: S Distance: 200' Deviation: One stand rest break and one sit rest break for approx. 2 minutes ASSESSMENT: Progressing well with gait and mobility. Pain in under control and she is getting confident to go home. She is happy with her progress. PLAN: Continue current POC progressing toward's established goals. Direct time: 15 minutes IOANA Joshi, KNOWLEDGE ARCHITECT
[2018-07-14] MEDS: Magnesium Chloride 64 MG TABCR PO ×2 (09:25→21:49)
--- NOTE | 2018-07-14 09:27 | PTTR_ITS ---
Date of service: 07/14/18 Time of Service: 09:24 PT Notes 07/14/18 SUBJECTIVE: Dena stating she had a good night. She is getting in and out of her bed easier and she did not have to use the leg nail tech to get into bed last night. She was able to take a second walk yesterday but her hip was quite achy afterwards. OBJECTIVE: Seated in recliner. Agreeable to PT treatment. TRANSFERS: Sit to stand: I Stand to sit: I GAIT: Device: FWW Weight bearing: WBAT L Assist: S Distance: 200' Deviation: One stand rest break and one sit rest break for approx. 2 minutes ASSESSMENT: Progressing well with gait and mobility. Pain in under control and she is getting confident to go home. She is happy with her progress. PLAN: Continue current POC progressing toward's established goals. Direct time: 15 minutes IOANA Joshi, BURR GRINDER
--- NOTE | 2018-07-14 14:10 | W.PM.PROGNOT ---
Date of Service Date of service: 07/14/18 Time of Service: 14:10 Assessment and Plan (1) Abscess of left hip: Current visit: Yes Status: Acute POD #8 s/p irrigation and debridement of her left hip and soft tissues around the left hip by Dr. Cruz. Surgical cultures growing pseudomonas. She was initially on Zosyn and Vanco, both have been discontinued. She is now on oral Cipro 500 BID (day #6) based on recommendations from ID at [facility], was was previously discussed with Dr. Still at [facility] ID. CRP increased 07/11. Plan remains to reassess CRP on tomorrow to get a trend. If CRP is increasing at that time, Dr. Cruz will contact [facility] for further recommendations she will likely need transfer for complicated surgery. Will likely require abx for 6 weeks if improving . Ortho continues to follow. (2) Acute on chronic renal failure: Current visit: Yes Status: Acute Creatinine increased slightly but not significantly back on her usual HCTZ, ARB. Repeat renal function with BMP tomorrow. (3) Hypomagnesemia: Current visit: Yes Status: Acute Magnesium finally normal today at 1.8. Repeat levels tomorrow and supplement as needed.. (4) Essential hypertension: Current visit: No Status: Chronic Blood pressure within acceptable range on ARB and HCTZ. Continue to monitor renal function and BP. (5) Anemia: Current visit: Yes Status: Chronic Likely related to chronic inflammation with this infection brewing for months, as well as some blood loss around surgery. Improving. Follow her labs on Sunday. (6) DVT prophylaxis: Current visit: No Status: Acute Subcutaneous heparin. (7) Discharge planning issues: Current visit: Yes Status: Acute She is a FULL code. She may need home health upon discharge. Subjective Patient reports: no new complaints, feels better, tolerating a regular diet and voiding w/o difficulty; denies diarrhea, nausea, vomiting, shortness of breath and fever Interval history since last seen: Hip pain continues to improve. She has been up walking today with physical therapy, and on her own with her walker in her room. Her energy is improving. Exam Narrative Exam Narrative: General: sitting up in the chair, able to get up on her own with walker. NAD. Pleasant and cooperative, talkative. HEENT: mucous membranes moist. Heart: regular rate and rhythm, no murmur appreciated. Lungs: Respirations even and unlabored, clear to auscultation throughout. GI: abdomen round, soft, nontender, nondistended, with normoacitve bowel sounds. Extremities: L hip incision not viewed today. BLEs well perfused with trace to +1 pitting edema bilaterally, not tender to palpation. Peripheral pulses palpable. Objective Objective Clinical Data: Vital Signs Temperature 36.9 C 07/14/18 07:35 Temperature Source Tympanic 07/14/18 07:35 Pulse 109 H 07/14/18 07:35 Pulse Rhythm Regular 07/14/18 07:55 Respiratory Rate 17 07/14/18 07:35 Respiratory Effort 07/14/18 07:55 Respiratory Depth Normal 07/14/18 07:55 Respiratory Pattern Normal 07/14/18 07:55 Blood Pressure 108/64 07/14/18 07:35 Pulse Oximetry 99 07/14/18 07:35 Respiratory End-tidal CO2 36 07/05/18 14:59 Oxygen Delivery Method Room Air 07/14/18 07:35 Oxygen Flow Rate 0 07/14/18 07:35 Pain Level 0 07/14/18 07:35 Comment 07/13/18 09:18 Intake & Output 07/13/18 07/14/18 07/14/18 23:59 11:59 23:59 Intake Total 240 / 1160 125 / 125 Balance 240 / 1160 125 / 125 Weight 110.2 kg Intake: Oral 240 / 1130 125 / 125 Other: Urine Color Yellow Urine Appearance Clear Clear Urine Odor Normal Comment patient is ad mark to the bathroom, Holly told me she walked to bathroom by heself. Stool Size Moderate Stool Characteristics Soft Formed Voiding Methods Toilet Laboratory Results WBC 8.97 k/cumm (4.4-10.8) D 07/13/18 06:00 RBC 3.09 m/cumm (4.00-5.20) L 07/13/18 06:00 Hgb 9.0 g/dL (12.0-15.5) L 07/13/18 06:00 Hct 29.1 % (36.0-46.0) L 07/13/18 06:00 MCV 94.2 fL (80-95) 07/13/18 06:00 MCH 29.1 pg (27.0-33.0) 07/13/18 06:00 MCHC 30.9 g/dL (32.0-36.0) L 07/13/18 06:00 RDW 14.7 % (11.7-14.6) H 07/13/18 06:00 Plt Count 385 x1000/uL (130-400) 07/13/18 06:00 MPV 8.9 fL (8.0-11.0) 07/13/18 06:00 Immature Gran % 0.6 07/13/18 06:00 Neutrophils % 61.7 07/13/18 06:00 Lymphocytes % 27.5 07/13/18 06:00 Monocytes % 7.7 07/13/18 06:00 Eosinophils % 2.3 07/13/18 06:00 Basophils % 0.2 07/13/18 06:00 Absolute Neutrophils 5.53 k/cumm (1.2-6.7) 07/13/18 06:00 Absolute Lymphocytes 2.47 k/cumm (1.2-3.4) 07/13/18 06:00 Absolute Monocytes 0.69 k/cumm (0.11-0.7) 07/13/18 06:00 Absolute Eosinophils 0.21 k/cumm (0.0-0.7) 07/13/18 06:00 Absolute Basophils 0.02 k/cumm (0.0-0.2) 07/13/18 06:00 Differential Comment Rbc morph reviewed 07/09/18 06:30 RBC Morphology Normal 07/09/18 06:30 Sodium 141 mmol/L (136-145) 07/13/18 06:00 Potassium 3.9 mmol/L (3.5-5.1) 07/13/18 06:00 Chloride 102 mmol/L (98-107) 07/13/18 06:00 Carbon Dioxide 27.1 mmol/L (21.0-32.0) 07/13/18 06:00 Anion Gap 11.9 mmol/L (3-11) H 07/13/18 06:00 BUN 16 mg/dL (7-18) 07/13/18 06:00 Creatinine 1.17 mg/dL (0.55-1.02) H 07/13/18 06:00 Estimated GFR/1.73 m2 45.34 (mL/min/1.73m2) 07/13/18 06:00 Glucose 133 mg/dL (70-100) H 07/13/18 06:00 Calcium 9.0 mg/dL (8.5-10.1) 07/13/18 06:00 Magnesium 1.8 mg/dL (1.8-2.4) 07/13/18 06:00 Creatine Kinase 46 U/L (26-192) 07/04/18 06:40 C-Reactive Protein 6.04 mg/dL (0.0-0.3) H 07/11/18 06:15 Vancomycin Trough 9.7 ug/mL (10.0-20.0) L 07/05/18 15:23 Lyme Disease Antibody Negative 07/04/18 06:40
--- NOTE | 2018-07-14 14:42 | PDOC.CMPRO ---
Care Management Progress Note S/O: Dena was up walking the hallway loop independently with her walker. Sat for a minute and said she is feeling better and hopes to get encouraging reports tomorrow. A: 73 y.o. female admitted for L Hip abscess P: Anticipate further diagnostic testing to determine if additional surgery will be needed prior to returning home. Continue to follow and provide support for Dena.
[2018-07-14 16:10] VITALS: BP 148/67; PULSE 94; RESP 18; TEMP 37; O2SAT 97
[2018-07-14] MEDS: Acetaminophen 325 MG TAB 650 MG PO (17:36)
[2018-07-14 21:09] VITALS: BP 127/60; PULSE 93; RESP 15; TEMP 37; O2SAT 96
[2018-07-15 01:21] VITALS: BP 110/53; PULSE 103; RESP 17; TEMP 36.6; O2SAT 97
[2018-07-15] MEDS: traMADol 50 MG TAB PO (01:50)
[2018-07-15 06:50] LABS: HCT 27.8 % (36.0-46.0); HGB 8.5 g/dL (12.0-15.5); Mean Corp. HGB Concentration 30.6 g/dL (32.0-36.0); Mean Corpuscular Hemoglobin 28.8 pg (27.0-33.0); Mean Corpuscular Volume 94.2 fL (80-95); Mean Platelet Volume 8.7 fL (8.0-11.0); Platelet Count 339 x1000/uL (130-400); RBC 2.95 m/cumm (4.00-5.20); RBC Distribution Width 14.8 % (11.7-14.6); White Blood Cell Count 6.98 k/cumm (4.4-10.8)
[2018-07-15 07:48] VITALS: BP 125/74; PULSE 89; RESP 18; TEMP 36; O2SAT 99
[2018-07-15 07:53] LABS: Magnesium 1.7 mg/dL (1.8-2.4)
[2018-07-15] MEDS: Enoxaparin 40 MG/0.4 ML SYR SC (08:30)
[2018-07-15] MEDS: Losartan 50 MG TAB 75 MG PO (08:30)
[2018-07-15] MEDS: Lactobacillus Acidophilus CAP 1 CAP PO ×2 (08:31→13:29)
[2018-07-15] MEDS: Atorvastatin 10 MG TAB PO (08:31)
[2018-07-15] MEDS: Ciprofloxacin 500 MG TAB PO (08:31)
[2018-07-15] MEDS: sitaGLIPtin 25 MG TABLET 50 MG PO (08:31)
[2018-07-15] MEDS: Magnesium Chloride 64 MG TABCR PO (09:31)
--- NOTE | 2018-07-15 10:26 | PT.INDS ---
Date of service: 07/15/18 Time of Service: 10:26 PT Notes Inpatient Physical Therapy Discharge Summary Date: 07/15/18 Dates of Service:07/10/18-07/15/18 SUBJECTIVE: Pt sitting in recliner chair, states she feels ready to go home today. OBJECTIVE: 07/10/18-07/15/18 Bed Mobility/Transfers: Supine to sit: independent with leg type casting machine operator Sit to supine: independent with use of leg type casting machine operator. Sit to stand: Independent with FWW Stand to sit: Independent with FWW Bed <> chair: independent with FWW Gait: independent with FWW 200ft, no rest breaks Balance: Static Sitting: Normal Dynamic Sitting: Normal Static Standing: good Dynamic Standing: good Assessment: Patient is a 73-year-old female admitted with abscess left hip, s/p left hip debridement for abscess 07/05/[address] Cruz in setting of obesity, total knee arthroplasty, carpal tunnel release, diabetes mellitus type 2, hypertension. Patient has been seen for 9 PT visits. Progressed from modA bed transfers to independent with leg type casting machine operator, from gait supervision 150ft to independent 200ft with FWW. Pt is being discharged to home today with issued FWW. Goals: 1. Supine to sit: Independent with leg type casting machine operator 2. Sit to supine: Independent with leg type casting machine operator 3. Sit to stand: Independent with FWW 4. stand to sit: Independent with FWW 5. Bed to chair: Independent with FWW 6. Chair to bed: Independent with FWW 7. Gait: Independent with FWW 200 feet, no rest breaks 8. Up/down 4 steps with railing, independent 9. Independent with home exercise program for left hip strengthening Pt met goals # 1, 2, 3, 4, 5, 6, 7, 9. deferred 8 DISCHARGE RECOMMENDATIONS: Home with FWW, pt defers home PT TREATMENT CODE/TIME: 24min [id number] G Codes in the area mobility of walking and moving around: projected status GP [id number]. Discharge status (if discharging) GP [id number] CK Gayla Wilburn PT
--- NOTE | 2018-07-15 10:32 | INDS_ITS ---
Date of service: 07/15/18 Time of Service: 10:26 PT Notes Inpatient Physical Therapy Discharge Summary Date: 07/15/18 Dates of Service:07/10/18-07/15/18 SUBJECTIVE: Pt sitting in recliner chair, states she feels ready to go home today. OBJECTIVE: 07/10/18-07/15/18 Bed Mobility/Transfers: Supine to sit: independent with leg software designer Sit to supine: independent with use of leg software designer. Sit to stand: Independent with FWW Stand to sit: Independent with FWW Bed <> chair: independent with FWW Gait: independent with FWW 200ft, no rest breaks Balance: Static Sitting: Normal Dynamic Sitting: Normal Static Standing: good Dynamic Standing: good Assessment: Patient is a 73-year-old female admitted with abscess left hip, s/p left hip debridement for abscess 07/05/[address] Cruz in setting of obesity, total knee arthroplasty, carpal tunnel release, diabetes mellitus type 2, hypertension. Patient has been seen for 9 PT visits. Progressed from modA bed transfers to independent with leg software designer, from gait supervision 150ft to independent 200ft with FWW. Pt is being discharged to home today with issued FWW. Goals: 1. Supine to sit: Independent with leg software designer 2. Sit to supine: Independent with leg software designer 3. Sit to stand: Independent with FWW 4. stand to sit: Independent with FWW 5. Bed to chair: Independent with FWW 6. Chair to bed: Independent with FWW 7. Gait: Independent with FWW 200 feet, no rest breaks 8. Up/down 4 steps with railing, independent 9. Independent with home exercise program for left hip strengthening Pt met goals # 1, 2, 3, 4, 5, 6, 7, 9. deferred 8 DISCHARGE RECOMMENDATIONS: Home with FWW, pt defers home PT TREATMENT CODE/TIME: 24min [id number] G Codes in the area mobility of walking and moving around: projected status GP [id number]. Discharge status (if discharging) GP [id number] CK Gayla Wilburn PT
[2018-07-15] MEDS: MAGNESIUM SULFATE 1 GM/100 ML BAG IVPB (11:56)
--- NOTE | 2018-07-15 12:05 | PDOC.CMDIS ---
- If Service Date Differs Date of service: 07/15/18 Time of Service: 12:05 LACE Index Scoring Tool - Questions: Length of Stay (in days): 7 - 13 Acuity (Admit via E.D.?): No Comorbidities: Diabetes w/o Complication E.D. Visits: 1 - Answers: Total Score: 7 Risk of Readmission: Low Risk Care Management Discharge Reason for Hospitalization: (L) Hip abscess Discharge Plan: Dena will return home today with no services. MARQUIS spoke with Dr. Casey in regards to home health and he does not feel it will be needed at this time. Dena is in need of a FWW which has been distributed from [employer] (DME of choice). Dena has contacted her certified pharmacy technician in regards to transportation home today. Patient/Family Education Needs: Review DC instructions, any limitations, and discuss 'Ask Me Three'
--- NOTE | 2018-07-15 12:09 | CMDISCH_ITS ---
- If Service Date Differs Date of service: 07/15/18 Time of Service: 12:05 LACE Index Scoring Tool - Questions: Length of Stay (in days): 7 - 13 Acuity (Admit via E.D.?): No Comorbidities: Diabetes w/o Complication E.D. Visits: 1 - Answers: Total Score: 7 Risk of Readmission: Low Risk Care Management Discharge Reason for Hospitalization: (L) Hip abscess Discharge Plan: Dena will return home today with no services. MARQUIS spoke with Dr. Casey in regards to home health and he does not feel it will be needed at this time. Dena is in need of a FWW which has been distributed from [employer] (DME of choice). Dena has contacted her machine helper in regards to transportation home today. Patient/Family Education Needs: Review DC instructions, any limitations, and discuss 'Ask Me Three'
--- NOTE | 2018-07-15 13:15 | HHF2F_ITS ---
1. Encounter Date and Reason I certify that CRISPIN RIZVI was seen by Ezequile Casey on 07/15/18 and that I had a [id number] encounter with this patient that meets the physician face to face encounter requirements. 2. Clinical Findings Supporting Skilled Need and Homebound Status I certify that home health services are medically necessary, include either intermittent penitentiary and/or physical/speech therapy, and that this patient is homebound in that absences from the home require considerable and taxing effort and are infrequent or of short duration, or are attributable to the need to receive medical care. [X] (a) Attached documentation from encounter provides clinical findings supporting skilled need and homebound status (including what assistance patient requires to leave the home). The encounter with the patient was in whole, or in part, for the following medical condition, which is the primary reason for home health care: L HIP ABSCESSES Senior Living: Physical Therapy: Continue working on improving ambulation and mobility as patient recovers from left hip infection and debridement Speech Therapy: Homebound: Patient's mobility is limited by left hip infection and pain 3. Certification and Authentication I certify that I composed the above information based on my clinical judgement relating to this patient's medical condition and, if applicable, clinical findings communicated to me by the NPP or inpatient physician who performed the Home Health Referral. All further orders will be obtained through __Shilpi Roman_(Community Based Physician - PCP)
--- NOTE | 2018-07-15 13:15 | W.PM.DS.N ---
Date of service: 07/15/18 Time of Service: 13:16 DS: Diagnosis Discharge Diagnosis (1) Abscess of left hip: Status: Acute (2) Acute on chronic renal failure: Status: Acute (3) Hypomagnesemia: Status: Acute (4) Essential hypertension: Status: Chronic (5) Anemia: Status: Chronic (6) DVT prophylaxis: Status: Acute (7) Discharge planning issues: Status: Acute Discharge Plan Disposition Patient Disposition: HOME W/HOME HEALTH SERVICE Condition: Good Discharge Details Reason For Visit: L HIP ABSCESSES Admit Date/Time: 07/03/18 12:53 Admit Provider: Kolton Escoto Attending Provider: Kolton Escoto Primary Care Provider: Shilpi Roman [facility] Hospital Course: 73-year-old female with type 2 diabetes who presented with several months of insidious onset left-sided hip pain worsening over 3 weeks prior to admission. MRI revealed multiple fluid collections within the musculature of the left hip and Dr. Cruz initially admitted the patient to orthopedic service. Aspiration of the left hip was performed to ensure that there was not intra-articular involvement, and no fluid was obtained. Patient was started on empiric antibiotics initially vancomycin and Zosyn. Patient underwent a incision and drainage of the soft tissue fluid collections with Dr. Cruz on 07/05/18 and the culture did grow Pseudomonas, with sensitivity to ofloxacin. After discussion with the [facility] infectious disease Dr. Still, the patient was transitioned to oral ciprofloxacin. Her pain improved over the course of hospitalization and her mobility improved while working with physical therapy. Her CRP was trending down to 3.1 on the day of discharge, from 7.45 on presentation 07/03/18 and 6.04 on 07/11/18. Plan per ID consult was 6 weeks of oral Ciprofloxicin. The patient was mildly anemic on presentation with hemoglobin of 10.9. It drifted down after her surgery. It was as low as 7.7 on 07/09/18, but was stable between 8 and 9 prior to discharge. The patient did have an episode of acute kidney injury with a creatinine up to 1.96 on 07/07/18. It improved back down to 1.1 and was stable. Magnesium was low and was repleted parenterally several times, with additional 1 g given on day of discharge when her magnesium level was 1.7. Patient's blood sugars were relatively well controlled on Januvia with sliding scale insulin as needed. With improvement of her GFR stable above 45, likely to go back to at least moderate dose metformin as sitagliptin is significantly more expensive. Home Meds and New Rx's Prescriptions: New acetaminophen [Tylenol] 325 mg Tablet 650 mg PO Q6H PRN PRNQty: 0 RF: 0 ciprofloxacin HCl 500 mg Tablet 500 mg PO BID Qty: 60 RF: 0 nystatin 100,000 unit/gram Powder 1 g Topical TID Qty: 60 RF: 0 acidophilus-pectin, citrus 25 million cell -100 mg Tablet 1 cap PO BID Qty: 60 RF: 0 magnesium chloride [Mag 64] 64 mg Tablet,Delayed Release (Dr/Ec) 64 mg PO BID@1000,2200 Qty: 60 RF: 2 Continued sitagliptin [Januvia] 50 mg tablet 50 mg PO DAILY Qty: 90 RF: 3 blood sugar diagnostic [FreeStyle Test] 1 EACH strip 1 ea Miscellaneous DAILY Qty: 100 RF: 4 lancets [FreeStyle Lancets] 1 EACH misc 1 ea Miscellaneous DAILY Qty: 50 RF: 12 losartan [Cozaar] 50 MG tablet 75 mg PO DAILY Qty: 135 RF: 3 hydrochlorothiazide 25 MG tablet 12.5 mg PO DAILY Qty: 45 RF: 3 atorvastatin [Lipitor] 10 MG tablet 10 mg PO DAILY Qty: 90 RF: 4 Discontinued celecoxib [Celebrex] 200 mg capsule 200 mg PO DAILY Qty: 90 RF: 3 Discharge Instructions Instructions: Abscess Incision and Drainage (DC) Additional Instructions: Dr. Cruz?s Discharge Instructions Activity: The most important activity is to walk. You should try to take short walks a few times a day. You have no restrictions on movement or positioning, but do not try to force what you do. - You will have home health physical therapy Dressing: Keep the surgical dressing in place for at least one week. The jose may be removed in 5-7 days (~07/19 - 07/22) Medications: - You should take Tylenol around the clock for baseline pain control. - You may also take Celebrex for pain control. - You should take Cipro 500mg twice a day. Do not take within 2 hours of multivitamin or any elements (Magnesium, Calcium, etc.) Follow-up: 2 weeks 1. Encounter Date and Reason I certify that DENA RIZVI was seen by Tadeo Cruz on 07/15/18 and that I had a [id number] encounter with this patient that meets the physician face to face encounter requirements. 2. Clinical Findings Supporting Skilled Need and Homebound Status I certify that home health services are medically necessary, include either intermittent group home and/or physical/speech therapy, and that this patient is homebound in that absences from the home require considerable and taxing effort and are infrequent or of short duration, or are attributable to the need to receive medical care. [X] (a) Attached documentation from encounter provides clinical findings supporting skilled need and homebound status (including what assistance patient requires to leave the home). The encounter with the patient was in whole, or in part, for the following medical condition, which is the primary reason for home health care: L HIP ABSCESSES Shelter: Physical Therapy: Dena would benefit from home health physical therapy to assist with post-operative strengthening and mobility. She is s/p irrigation and debridement of the left hip. She does have posterior hip precautions mostly focused on keeping the knees wider than the hips. She should work on ambulating and mobilization tolerance followed by strengthening. Speech Therapy: Homebound: Dena is unable to leave her home without assistance. She is homebound due to her significant weakness and gait limitations. 3. Certification and Authentication I certify that I composed the above information based on my clinical judgement relating to this patient's medical condition and, if applicable, clinical findings communicated to me by the NPP or inpatient physician who performed the Home Health Referral. All further orders will be obtained through Dr. Cruz Stand Alone Forms: Nursing Discharge Form Referrals: Shilpi Roman NP [Primary Care Provider] - Activity:: per physical therapy and orthopedic recommendations Equipment/Supplies:: Walker Diet:: Carb Counting Discharge Orders Discharge Orders: Discharge Order (Routine); Ordered 07/15/18 Ordered By: Ezequiel Casey Exam Narrative Exam Narrative: General: sitting up in the chair, able to get up on her own with walker. NAD. Pleasant and cooperative, talkative. HEENT: mucous membranes moist. Heart: regular rate and rhythm, no murmur appreciated. Lungs: Respirations even and unlabored, clear to auscultation throughout. GI: abdomen round, soft, nontender, nondistended, with normoacitve bowel sounds. Extremities: BLEs well perfused with trace to +1 pitting edema bilaterally, not tender to palpation. Peripheral pulses palpable. DS: Data Vitals/I&O Vitals and I&O: Vital Signs Temperature 36 C L 07/15/18 07:48 Temperature Source Temporal Artery Scan 07/15/18 07:48 Pulse 89 07/15/18 07:48 Pulse Rhythm Regular 07/15/18 08:43 Respiratory Rate 18 07/15/18 07:48 Respiratory Effort 07/15/18 08:43 Respiratory Depth Normal 07/15/18 08:43 Respiratory Pattern Normal 07/15/18 08:43 Blood Pressure 125/74 07/15/18 07:48 Pulse Oximetry 99 07/15/18 07:48 Respiratory End-tidal CO2 36 07/05/18 14:59 Oxygen Delivery Method Room Air 07/15/18 07:48 Oxygen Flow Rate 0 07/15/18 07:48 Pain Level 0 07/15/18 07:48 Comment 07/13/18 09:18 Intake & Output 07/14/18 07/15/18 07/15/18 23:59 11:59 23:59 Intake Total 960 / 1085 Balance 960 / 1085 Intake: Oral 960 / 1085 Other: Urine Color Yellow Urine Appearance Clear Clear Urine Odor Normal Voiding Methods Toilet Toilet Labs on day of discharge: Labs from last 24 hours 07/15/18 07/15/18 06:30 06:30 WBC 6.98 RBC 2.95 L Hgb 8.5 L Hct 27.8 L MCV 94.2 MCH 28.8 MCHC 30.6 L RDW 14.8 H Plt Count 339 MPV 8.7 Magnesium 1.7 L C-Reactive Protein 3.10 H PFSH Diabetes mellitus, type 2 Disorder of gallbladder Female infertility Hyperlipidemia Hypertension Obesity Family History Other Diabetes Heart disease Hyperlipidemia Abdominal hysterectomy Biopsy of breast Cholecystectomy Dilation and curettage Open Carpal Tunnel release Replacement of total knee joint Family History Other Diabetes Heart disease Hyperlipidemia Medical History Diabetes mellitus, type 2 Disorder of gallbladder Female infertility Hyperlipidemia Hypertension Obesity Social History adopted: No lives independently: Yes number of children: 0 Smoking/Tobacco Use Status: Never alcohol intake: never substance use type: does not use seatbelt use: always Surgical History Abdominal hysterectomy Biopsy of breast Cholecystectomy Dilation and curettage Open Carpal Tunnel release Replacement of total knee joint Social History adopted: No lives independently: Yes number of children: 0 Smoking/Tobacco Use Status: Never alcohol intake: never substance use type: does not use seatbelt use: always
[2018-07-15] MEDS: Normal Saline Flush 10 ML SYR IVP (13:29)
--- NOTE | 2018-07-15 15:30 | CHAPLAIN ---
Dena told me this morning when I visited that she was being discharged later today and she spoke with her hazardous materials waste technician, Rev. Kolby Johnson about a ride home. Another member of her catholic [facility] will likely be able to shop for Dena later in the week, and a friend has offered to clean. Rev. Johnson and the catholic members have been very faithful in supporting Dena.
--- NOTE | 2018-07-15 16:53 | W.PM.PROGNOT ---
Date of Service Date of service: 07/15/18 Time of Service: 12:29 Assessment and Plan (1) Abscess of left hip: Current visit: No Status: Acute Dena is a 73-year-old status post irrigation debridement of left hip abscess from Pseudomonas. She is currently on ciprofloxacin. Her C-reactive protein has come down to 3. She has been systemically well without significant fever or chills. Her pain is still present but improving. At this point, I do think she is ready to go home with home health physical therapy. We just need to give this time. I am concerned about eradicating the Pseudomonas. We will follow it closely. I will see her back in 2 weeks for repeat evaluation as well as labs. She will continue on the ciprofloxacin 500 mg twice daily. I do think home health physical therapy will be beneficial. [place] may be removed in a week. Subjective Interval history since last seen: Dena reports be doing better. She does have some groin and anterior thigh pain but it seems to be improving. She has been able to mobilize throughout the room with minimal discomfort and with minimal assistance. She denies any fever or chills. She is tolerating her medications well. Exam Narrative Exam Narrative: Evaluation the left hip shows no overlying skin changes. No erythema. The incision is well approximated without significant drainage. Soft tissues are mildly tender but without any areas of fluctuance. She tolerates internal and external rotation of the hip with very minimal discomfort until the extremes of motion, approximately 15 degrees of internal rotation and 30 degrees of external rotation. She is able to actively flex the hip with minimal discomfort. Objective Objective Clinical Data: Abnormal lab results 07/15/18 07/15/18 Range/Units 06:30 06:30 RBC 2.95 L (4.00-5.20) m/cumm Hgb 8.5 L (12.0-15.5) g/dL Hct 27.8 L (36.0-46.0) % MCHC 30.6 L (32.0-36.0) g/dL RDW 14.8 H (11.7-14.6) % Magnesium 1.7 L (1.8-2.4) mg/dL C-Reactive Protein 3.10 H (0.0-0.3) mg/dL Vital Signs Temperature 36 C L 07/15/18 07:48 Temperature Source Temporal Artery Scan 07/15/18 07:48 Pulse 89 07/15/18 07:48 Pulse Rhythm Regular 07/15/18 08:43 Respiratory Rate 18 07/15/18 07:48 Respiratory Effort 07/15/18 08:43 Respiratory Depth Normal 07/15/18 08:43 Respiratory Pattern Normal 07/15/18 08:43 Blood Pressure 125/74 07/15/18 07:48 Pulse Oximetry 99 07/15/18 07:48 Respiratory End-tidal CO2 36 07/05/18 14:59 Oxygen Delivery Method Room Air 07/15/18 07:48 Oxygen Flow Rate 0 07/15/18 07:48 Pain Level 0 07/15/18 07:48 Comment 07/13/18 09:18 Intake & Output 07/14/18 07/15/18 07/15/18 23:59 11:59 23:59 Intake Total 960 / 1085 300 / 300 Balance 960 / 1085 300 / 300 Intake: Oral 960 / 1085 300 / 300 Other: Urine Color Yellow Urine Appearance Clear Clear Urine Odor Normal Voiding Methods Toilet Toilet Laboratory Results WBC 6.98 k/cumm (4.4-10.8) 07/15/18 06:30 RBC 2.95 m/cumm (4.00-5.20) L 07/15/18 06:30 Hgb 8.5 g/dL (12.0-15.5) L 07/15/18 06:30 Hct 27.8 % (36.0-46.0) L 07/15/18 06:30 MCV 94.2 fL (80-95) 07/15/18 06:30 MCH 28.8 pg (27.0-33.0) 07/15/18 06:30 MCHC 30.6 g/dL (32.0-36.0) L 07/15/18 06:30 RDW 14.8 % (11.7-14.6) H 07/15/18 06:30 Plt Count 339 x1000/uL (130-400) 07/15/18 06:30 MPV 8.7 fL (8.0-11.0) 07/15/18 06:30 Immature Gran % 0.6 07/13/18 06:00 Neutrophils % 61.7 07/13/18 06:00 Lymphocytes % 27.5 07/13/18 06:00 Monocytes % 7.7 07/13/18 06:00 Eosinophils % 2.3 07/13/18 06:00 Basophils % 0.2 07/13/18 06:00 Absolute Neutrophils 5.53 k/cumm (1.2-6.7) 07/13/18 06:00 Absolute Lymphocytes 2.47 k/cumm (1.2-3.4) 07/13/18 06:00 Absolute Monocytes 0.69 k/cumm (0.11-0.7) 07/13/18 06:00 Absolute Eosinophils 0.21 k/cumm (0.0-0.7) 07/13/18 06:00 Absolute Basophils 0.02 k/cumm (0.0-0.2) 07/13/18 06:00 Differential Comment Rbc morph reviewed 07/09/18 06:30 RBC Morphology Normal 07/09/18 06:30 Sodium 141 mmol/L (136-145) 07/13/18 06:00 Potassium 3.9 mmol/L (3.5-5.1) 07/13/18 06:00 Chloride 102 mmol/L (98-107) 07/13/18 06:00 Carbon Dioxide 27.1 mmol/L (21.0-32.0) 07/13/18 06:00 Anion Gap 11.9 mmol/L (3-11) H 07/13/18 06:00 BUN 16 mg/dL (7-18) 07/13/18 06:00 Creatinine 1.17 mg/dL (0.55-1.02) H 07/13/18 06:00 Estimated GFR/1.73 m2 45.34 (mL/min/1.73m2) 07/13/18 06:00 Glucose 133 mg/dL (70-100) H 07/13/18 06:00 Calcium 9.0 mg/dL (8.5-10.1) 07/13/18 06:00 Magnesium 1.7 mg/dL (1.8-2.4) L 07/15/18 06:30 Creatine Kinase 46 U/L (26-192) 07/04/18 06:40 C-Reactive Protein 3.10 mg/dL (0.0-0.3) H 07/15/18 06:30 Vancomycin Trough 9.7 ug/mL (10.0-20.0) L 07/05/18 15:23 Lyme Disease Antibody Negative 07/04/18 06:40
== END 2018-07-15 15:00 | disposition home health service (06) | DRG 982 ==
PROVIDERS: Family Medicine; Internal Medicine; Nurse Practitioner Primary Care; Student in an Organized Health Care Education/Training Program; Admitting Provider Internal Medicine; PCP Nurse Practitioner; Visit Provider Internal Medicine
PROC: 0SBB0ZZ Excision of Left Hip Joint, Open Approach (ICD-10-PCS; CPT 27030; principal; 2018-07-05 13:30)
DX: L02.416 Cutaneous abscess of left lower limb (principal); N17.9 Acute kidney failure, unspecified; Z68.42 Body mass index [BMI] 45.0-49.9, adult; M65.862 Other synovitis and tenosynovitis, left lower leg; M25.552 Pain in left hip; B96.5 Pseudomonas (aeruginosa) (mallei) (pseudomallei) as the cause of diseases classified elsewhere; M16.12 Unilateral primary osteoarthritis, left hip; M70.72 Other bursitis of hip, left hip; N18.9 Chronic kidney disease, unspecified; I12.9 Hypertensive chronic kidney disease with stage 1 through stage 4 chronic kidney disease, or unspecified chronic kidney disease; E11.22 Type 2 diabetes mellitus with diabetic chronic kidney disease; Z79.84 Long term (current) use of oral hypoglycemic drugs; D64.9 Anemia, unspecified; E78.5 Hyperlipidemia, unspecified; E66.01 Morbid (severe) obesity due to excess calories; R26.2 Difficulty in walking, not elsewhere classified; E83.42 Hypomagnesemia; K21.0 Gastro-esophageal reflux disease with esophagitis
CPT/HCPCS: 27030; 11042; 20610; 77002; 36415; 36569; 77001; 80048; 82550; 85027; 87040; 87077; 97110; 97161; 97162; 97165; 97166; 97530; 99223; 99231; 99232; 99233; 99239; 99254; J1650; NC; 80202; 83735; 85025; 86140; 86618; 87070; 87186; 87205; 93005; 93010; J1644; J1885; J2250; J2405; J2543; J3010; J3475

== ENCOUNTER → 2018-07-03 | Outpatient (CLI) | payer OTHER, SELFPAY ==
[2018-07-03 08:57] LABS: HCT 34.6 % (36.0-46.0); HGB 10.9 g/dL (12.0-15.5); Mean Corp. HGB Concentration 31.5 g/dL (32.0-36.0); Mean Corpuscular Hemoglobin 29.5 pg (27.0-33.0); Mean Corpuscular Volume 93.8 fL (80-95); Mean Platelet Volume 8.9 fL (8.0-11.0); Platelet Count 414 x1000/uL (130-400); RBC 3.69 m/cumm (4.00-5.20); RBC Distribution Width 13.6 % (11.7-14.6); White Blood Cell Count 9.11 k/cumm (4.4-10.8)
--- NOTE | 2018-07-03 09:03 | DI.MRI_ITS ---
SYMPTOMS/DIAGNOSIS: LEFT HIP PAIN, F/U PREVIOUS MRI FLUID COLLECTION MRI OF THE PELVIS AND LEFT HIP: Comparison is made with noncontrast exam of May,. Pre and post gadolinium fat-suppressed T1 axial, coronal and sagittal sequences were performed. There is a significant severe post gadolinium enhancement surrounding the left hip. The previously noted fluid collections show wall thickening with enhancement, consistent with multiple abscesses. There is also enhancement of fluid in the hip joint, as well as some enhancement of the superior acetabulum and a small portion of the left femoral head. No abnormal enhancement is seen of the right hip. The sacrum and coccyx are unremarkable. IMPRESSION: Marked abnormal enhancement surrounding the left hip consistent with septic arthritis and multiple adjacent muscular and soft tissue abscesses.
[2018-07-03 09:09] LABS: Anion Gap 9.7 mmol/L (3-11); BUN 24 mg/dL (7-18); CO2 28.3 mmol/L (21.0-32.0); CREATININE 1.22 mg/dL (0.55-1.02); Chloride 102 mmol/L (98-107); Glucose 229 mg/dL (70-100); Potassium 3.4 mmol/L (3.5-5.1); Sodium 140 mmol/L (136-145)
[2018-07-03 09:14] LABS: C-Reactive Protein 7.45 mg/dL (0.0-0.3)
[2018-07-03 09:32] LABS: ESR 108 MM/HR (0-30)
[2018-07-03] MEDS: Gadoterate meglumine 20 ML VIAL IVP (10:38)
--- NOTE | 2018-07-03 12:06 | DI.RAD_ITS ---
SYMPTOMS/DIAGNOSIS: LEFT HIP PAIN, INFECTION, M25.552 FLUOROSCOPY OF THE LEFT HIP: Fluoroscopy Time: 3 sec Fluoroscopy was provided for Dr. Cruz. A single hard copy image shows needle projected in the lateral aspect with the injection of contrast, which appears to be located within the hip joint. Please see procedure note for details.
[2018-07-03] MEDS: Omnipaque 300 MG/ML 10 ML BTL IJ (13:18)
== END ==
PROVIDERS: PCP Nurse Practitioner; Visit Provider Student in an Organized Health Care Education/Training Program
DX: M25.552 Pain in left hip (principal); M00.852 Arthritis due to other bacteria, left hip; I10 Essential (primary) hypertension; E11.69 Type 2 diabetes mellitus with other specified complication; R79.9 Abnormal finding of blood chemistry, unspecified; E66.9 Obesity, unspecified
CPT/HCPCS: 20610; 77002; 36415; 80048; 85027; 85652; 73722; 86140

== ENCOUNTER 2018-07-31 09:30 | Outpatient (CLI) | payer OTHER, SELFPAY ==
[2018-07-31 15:04] LABS: Creatine Kinase 55 U/L (26-192)
== END 2018-07-31 09:50 ==
PROVIDERS: PCP Nurse Practitioner; Visit Provider Student in an Organized Health Care Education/Training Program
DX: M76.12 Psoas tendinitis, left hip (principal)
CPT/HCPCS: 36415; 82550

== ENCOUNTER 2018-08-02 11:28 | Outpatient (CLI) | payer OTHER, SELFPAY ==
[2018-08-02 12:18] LABS: HCT 32.2 % (36.0-46.0); HGB 9.9 g/dL (12.0-15.5); Mean Corp. HGB Concentration 30.7 g/dL (32.0-36.0); Mean Corpuscular Hemoglobin 28.7 pg (27.0-33.0); Mean Corpuscular Volume 93.3 fL (80-95); Mean Platelet Volume 8.8 fL (8.0-11.0); Platelet Count 345 x1000/uL (130-400); RBC 3.45 m/cumm (4.00-5.20); RBC Distribution Width 14.5 % (11.7-14.6); White Blood Cell Count 7.16 k/cumm (4.4-10.8)
[2018-08-02 14:18] LABS: ESR 114 MM/HR (0-30)
== END 2018-08-02 11:48 ==
PROVIDERS: PCP Nurse Practitioner; Visit Provider Student in an Organized Health Care Education/Training Program
DX: L02.416 Cutaneous abscess of left lower limb (principal)
CPT/HCPCS: 36415; 85027; 85652; 86140

== ENCOUNTER 2018-08-08 00:36 | Outpatient (CLI) | payer OTHER, SELFPAY ==
--- NOTE | 2018-08-08 07:13 | DI.RAD_ITS ---
SYMPTOMS/DIAGNOSIS: LT HIP ASPIRATION, ABSCESS LT HIP, L02.416 FLUOROSCOPY OF THE LEFT HIP: Fluoroscopy Time: 3 sec Fluoroscopy was provided for Dr. Cruz for guidance with aspiration of the left hip. Please see procedure note for details.
[2018-08-08] MEDS: Gadoterate meglumine 20 ML VIAL IVP (10:08)
--- NOTE | 2018-08-08 10:29 | DI.MRI_ITS ---
SYMPTOM/DIAGNOSIS: LT HIP PAIN, ? INFECTION, ABSCESS, L02.416 PELVIS AND LEFT HIP MRI: Comparison is made with exams from 06/28 and 07/03/18. T 1 and fat suppressed T 2 axial, coronal and sagittal sequences and pre and post Dotarem fat suppressed T 1 axial, coronal and sagittal sequences were performed. There is increased enhancement in the soft tissues surrounding the left hip. The previously noted abcess collections have decreased in size. There is also now a large amount of abnormal enhancement seen within the marrow of the proximal femur. There is also now collapse of the left femoral head. There is abnormal enhancement in the superior acetabulum. The findings are consistent with osteomyelitis. There are artifacts around the hip which could represent air bubbles. They are not seen on the previous exams. The findings could be secondary to infection or instrumentation. IMPRESSION: Marked interval worsening of septic arthritis and surrounding myositis. The size of the abscesses have decreased in size. There is now marked abnormal enhancement within the superior acetabulum and proximal femur consistent with osteomyelitis. Collapse of the left femoral head is also seen.
--- NOTE | 2018-08-08 21:08 | OPPNE_ITS ---
Date of service: 08/08/18 Time of Service: 10:05 Procedure Note Date of procedure: 08/08/18 Procedure: Left Hip aspiration with Fluoroscopic Guidance Surgeon/Proceduralist/Physician: Tadeo Cruz Procedure Diagnosis: Left Hip infection Procedure Indications: Dena has had persistent pain of the LEFT hip and groin. She has been diagnosed with a hip infection on the left side seem to involve the soft tissue around the hip including the hip joint itself. Initial debridement was performed. Unfortunately, she has had persistent, and worsening, symptoms as well as an increasing C-reactive protein. Therefore I recommended repeat aspiration of the hip. I had discussed the risks of the procedure and the patient elected to proceed. Procedure Descrip tion: Dena was greeted in the flouroscopy room. The correct side was identified and the consent was reviewed with the patient and signed. The patient was then placed in the supine position on the fluoroscopy table. The LEFT hip was then prepped with Chloraprep. The anterolateral injection starting point was identiifed by bony landmarks and fluoroscopy. The skin and soft tissue in the tract of the injection was anesthetized with 1% Lidocaine. A spinal needle was then inserted deep into the hip joint at the level of the lateral femoral neck under fluoroscopic guidance. The needle almost seem to penetrate into the bone slightly. I was clearly hitting the lateral aspect of the femoral neck and was in the correct position on the x-ray. I therefore aspirated approximately 1-1/2 cc of slightly bloody tinged joint fluid. This was sent to the lab for culture. A bandaid was placed on the injection site. The patient tolerated the procedure well and noted improvement in pre-injection pain.
== END 2018-08-08 00:56 ==
PROVIDERS: PCP Nurse Practitioner; Visit Provider Student in an Organized Health Care Education/Training Program
DX: M25.552 Pain in left hip (principal); M00.852 Arthritis due to other bacteria, left hip; M86.152 Other acute osteomyelitis, left femur
CPT/HCPCS: 20610; 77002; 73723; 87070; 87205

== ENCOUNTER 2018-08-21 14:04 | Inpatient (IN) | payer OTHER, MEDICARE, SELFPAY ==
[2018-08-21 14:05] VITALS: BP 158/71; PULSE 93; RESP 20; TEMP 36.2; O2SAT 99
--- NOTE | 2018-08-21 15:31 | NUR.NOTE ---
Nursing Note: Pt arrived [place] [facility] [place] EMS at 1404. VSS. A&Ox3. Call burks within reach; reliable to ring for assistance. Admission part I and II to be completed.
--- NOTE | 2018-08-21 16:08 | CHAPLAIN ---
Dena said she was happy to be back at [facility], and is feeling okay after her ambulance transport from [facility]. She told me about her surgery, the spacer that was put in, and then the plan for her to have her hip replacement surgery done at [facility] eventually. 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 She is a member of the [facility] [facility] and gave me permission to let her drop count associate, Rev. Kolby Johnson, know she is here.
[2018-08-21 16:39] VITALS: BP 122/74; PULSE 96; RESP 18; TEMP 37.1; O2SAT 99
--- NOTE | 2018-08-21 17:08 | W.PM.HP.N ---
Date of service: 08/21/18 Time of Service: 17:08 Assessment and Plan (1) Pyogenic arthritis: Current visit: No Status: Acute S/P conversion of L hip to prostalac spacer, 08/14/[address] Cornejo at [facility]. Has been followed locally by Dr. Cruz. Levofloxacin 750 mg daily to be completed on 08/26/18. [place] to be removed per Dr. Cornejo's recommendations (08/28/18-09/04/18). Coumadin for DVT prophylaxis until 09/13. Continue to monitor INR. CBC tomorrow for baseline labs. Continue to follow hip precautions. PT and OT consults. (2) Anemia: Current visit: No Status: Chronic Postoperative anemia due to blood loss. Monitor hemoglobin and hematocrit. CBC in the morning. (3) Gastroesophageal reflux disease with esophagitis: Current visit: No Status: Acute Continue omeprazole. (4) Essential hypertension: Current visit: No Status: Chronic Blood pressures have been soft per patient, also anemic. Hold BP medications for now and monitor blood pressures. Restart as needed. (5) Diabetes mellitus type 2 in obese: Current visit: No Status: Chronic Blood glucose AC&HS, continue Januvia, ADA diet, aspart per sliding scale. (6) DVT prophylaxis: Current visit: No Status: Acute Coumadin per [facility]. INR goal: 2. Continue 2.5 mg at HS. Monitor INR. (7) Discharge planning issues: Current visit: No Status: Acute She is a FULL CODE. Dena is on swing bed status for rehab. The plan will be for her to return home when ready. Will make Dr. Cruz aware that she is here. This case was discussed with Dr. Ge, who is in agreement. History of Present Illness Chief Complaint: Left hip spacer, Swing bed for rehab. Narrative: Dena Madrigal is a 73 year old female with past medical history significant for type 2 diabetes, HTN, GERD, hyperlipidemia, and obesity, who was recently treated here at [facility] for a left hip infection by Dr. Cruz. She had continued pain. Dr. Cruz obtained cultures from the site which grew Pseudomonas. Follow up MRI on 08/08/18 revealed: Marked interval worsening of septic arthritis and surrounding myositis. The size of the abscesses have decreased in size. There is now marked abnormal enhancement within the superior acetabulum and proximal femur consistent with osteomyelitis. Collapse of the left femoral head is also seen. She was referred to Dr. Cornejo at [facility] and is admitted to swing bed status for rehab status post conversion of Left hip to prostalac spacer 08/14/18. She experienced postoperative anemia due to blood loss. She is currently completing a course of Levofloxacin 750 mg daily to be completed on 08/26/18. She is on Coumadin for DVT prophylaxis until 09/13/18. She has follow up scheduled with Ortho at [facility] on 09/23/18. Her only concern is that she has mild discomfort at the incision/jose. Her pain is 2/10 in the left hip, this is a marked improvement from before the surgery. She is not short of breath, coughing, or wheezing, no chest pain/pressure, palpitations, she is eating and drinking and tolerating a regular diet, her bowels have been functioning normally, she had a bowel movement yesterday. She denies dysuria, frequency or urgency. She denies edema. She is overall feeling much better than she was prior to her surgery. No other concerns. 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 Meds Home Medications Medication Instructions Recorded Confirmed Type FreeStyle Test #100 strip 12/12/17 08/02/18 Rx lancets [FreeStyle Lancets] #50 ea 12/12/17 08/02/18 Rx atorvastatin [Lipitor] 10 mg PO DAILY #90 tab-cap 03/19/18 08/21/18 Rx sitagliptin 50 mg tablet 50 mg PO DAILY #90 tab 06/12/18 08/02/18 Rx acetaminophen [Tylenol] 650 mg PO Q6H PRN PRN #0 tab 07/15/18 08/21/18 Rx acidophilus-pectin, citrus 1 cap PO BID #60 tab 07/15/18 08/21/18 Rx nystatin 1 g TOPICAL TID #60 gm 07/15/18 08/21/18 Rx acetaminophen 500 mg capsule 500 mg PO .q8 PRN cap 08/21/18 History hydrochlorothiazide 25 mg tablet 25 mg PO DAILY 08/21/18 History levofloxacin 750 mg tablet 750 mg PO DAILY 08/21/18 History losartan 50 mg tablet 50 mg PO DAILY 08/21/18 History magnesium oxide 400 mg (241.3 mg 400 mg PO DAILY tab 08/21/18 History magnesium) tablet naproxen 500 mg tablet 500 mg PO BID 08/21/18 History omeprazole 20 mg capsule,delayed 20 mg PO DAILY 08/21/18 History release oxycodone 5 mg tablet 5 mg PO Q4H PRN tab 08/21/18 History polyethylene glycol 3350 17 17 gm PO BID PRN 08/21/18 History gram/dose oral powder senna-docusate sodium tablet 2 tab PO BID PRN tab 08/21/18 History warfarin 5 mg tablet 5 mg PO DAILY 08/21/18 History Allergies Allergy/AdvReac Type Severity Reaction Status Date / Time ciprofloxacin Allergy Unknown itching Verified 08/21/18 18:49 silver Allergy Unknown itching Verified 08/21/18 18:52 [From Tegaderm AG Mesh] prednisone AdvReac Mild Unverified 08/02/18 10:33 Exam Narrative Exam Narrative: General: appears younger than stated age, sitting up in chair with legs elevated, in NAD. HEENT: normocephalic, atraumatic, mucous membranes moist. Neck: supple, no JVD. Cardiovascular: regular rate and rhythm, no murmur appreciated. Lungs: Respirations even and unlabored, clear to auscultation throughout. GI: abdomen soft, nontender, nondistended, with normoacitve bowel sounds. Extremities: L hip incision with dressing clean, dry and intact. Incision well approximated, jose intact, no erythema, no drainage. BLEs well perfused with +1 edema bilaterally. Peripheral pulses palpable. Results Labs : 08/22/18 06:52 08/22/18 06:52 Last Vital Signs Temp 37.1 C 08/21/18 16:39 Pulse 96 H 08/21/18 16:39 Resp 18 08/21/18 16:39 BP 122/74 08/21/18 16:39 Pulse Ox 99 08/21/18 16:39
[2018-08-21 19:09] VITALS: BP 129/79; PULSE 101; RESP 20; TEMP 37; O2SAT 95
[2018-08-21] MEDS: Naproxen 500 MG TAB PO (20:31)
[2018-08-21] MEDS: Magnesium Chloride 64 MG TABCR PO (21:26)
[2018-08-22 04:32] VITALS: BP 132/68; PULSE 80; RESP 18; TEMP 36.9; O2SAT 97
[2018-08-22 07:17] LABS: HCT 28.8 % (36.0-46.0); HGB 8.6 g/dL (12.0-15.5); Mean Corp. HGB Concentration 29.9 g/dL (32.0-36.0); Mean Corpuscular Hemoglobin 27.9 pg (27.0-33.0); Mean Corpuscular Volume 93.5 fL (80-95); Mean Platelet Volume 8.8 fL (8.0-11.0); Platelet Count 314 x1000/uL (130-400); RBC 3.08 m/cumm (4.00-5.20); RBC Distribution Width 14.5 % (11.7-14.6); White Blood Cell Count 6.52 k/cumm (4.4-10.8)
[2018-08-22 07:22] LABS: Anion Gap 5.7 mmol/L (3-11); BUN 23 mg/dL (7-18); CO2 30.3 mmol/L (21.0-32.0); CREATININE 1.09 mg/dL (0.55-1.02); Calcium 9.1 mg/dL (8.5-10.1); Chloride 104 mmol/L (98-107); Glucose 110 mg/dL (70-100); Sodium 140 mmol/L (136-145)
[2018-08-22 07:25] LABS: INR 1.6 (0.9-1.1); Prothrombin Time 15.6 sec (9.3-11.0)
[2018-08-22] MEDS: Atorvastatin 10 MG TAB PO (09:06)
[2018-08-22] MEDS: Omeprazole 20 MG CAPCR PO (09:06)
[2018-08-22] MEDS: Naproxen 500 MG TAB PO ×2 (09:06→19:57)
[2018-08-22] MEDS: sitaGLIPtin 25 MG TABLET 50 MG PO (09:06)
[2018-08-22 09:29] VITALS: BP 121/59; PULSE 83; RESP 18; TEMP 36.3; O2SAT 95
--- NOTE | 2018-08-22 10:00 | OT.INIE ---
Occupational Therapy Notes Inpatient Occupational Therapy Evaluation Date: 08/22/18 Referring Doctor:Kaylynn Mills NP OT Orders: s/p conversion of (L) hip to prostalac spacer on 08/14/18 at [facility], Dr. Cornejo. SWB Precautions: PWB, posterior hip precautions PATIENT PROFILE/ADMITTING DIAGNOSIS: Pt is a 73 year old female who was seen on 07/03/[address] Cruz for a (L) hip abscess. On 07/05/18 she underwent surgery performed by Dr. Cruz. She went to [facility] for surgery and is s/p conversion of (L) hip to prostalac spacer on 08/14/[address] Cornejo and is here under SWB rehabilitation status. Past Medical History: DMII, Disorder of gall bladder, hyperlipidemia, HTN, Obesity, abnormal hysterectomy, cholecystectomy, open carpal tunnel release, total knee replacement about 14 years ago. Current Functional Limitations: Pt reports that she is fairly (I) with ADLs. She has decreased functional activity tolerance and states that she is unable to per LE dressing throughly at this time with adherence to posterior hip precautions. Social History/Home Situation: Pt lives alone in a mobile home. She has four steps to enter with (B) railings. She reports that her home set up is all on one floor. She has a walk in shower with a shower chair and is (I) with all ADLs/IADLs. She is concerned about performing household cleaning tasks when she returns home. Equipment owned/DME: Cane, shower chair, FWW, tray for walker SUBJECTIVE: Pt was sitting in bed when OT arrived. She is tired from working with PT but is agreeable to OT session. OBJECTIVE: General Observation: Pleasant, answers questions appropriately Mental Status: A&Ox3 Pain: no c/o pain ROM: RUE WNL L UE WNL STRENGTH: RUE 5/5 throughout LUE 5/5 throughout BALANCE: Static sitting Normal Dynamic Sitting Normal SPECIAL TESTS: Daily Activity Limitations Standardized Measure [facility] AM -PAC ?6 clicks? Daily Activity Inpatient Short Form: Raw score: 22 Standardized score: 47.10 CMS score: 25.80% CMS modifier: CJ INFORMED CONSENT/EDUCATION: Pt instructed in purpose of OT Consult and plan of care. ASSESSMENT: Patient is a 73-year-old female referred to occupational therapy services with diagnosis of (L) hip abscess and was seen by Dr. Cruz on 07/03/18 and underwent surgery on 07/05/18. On 08/14/18 she was seen in [facility] and is s/p conversion of (L) hip to prostalac spacer performed by Dr. Cornejo in setting of DMII, Disorder of gall bladder, hyperlipidemia, HTN, Obesity, abnormal hysterectomy, cholecystectomy, open carpal tunnel release, total knee replacement about 14 years ago. Pt is receptive to OT education and consult today. She is fairly (I) with ADLs/IADLs per pt report the only thing that she feels she is having difficulty with is putting on LE garments and functional activity tolerance in her home. OT recommends that pt return home when medically cleared per MD with home health services. AMPAC score 22, CMS score 25.80% Patient is assessed as a Low 03174 complexity based on the following: History: See Above Examination: See Above Presentation: Evolving Decision Making: AMPAC score 22, CMS score 25.80% GOALS 1. Dressing: Pt will be able to perform LE dressing (I) with adherence to posterior hip precautions and PWB status in sitting position with FWW when pulling LE garments up. PLAN OF CARE/TREATMENT PLAN: OT will plan to see 1x/week 5days/week for education and training in dressing, grooming, bathing, toileting activities. DISCHARGE RECOMMENDATIONS: Home with home health services when medically cleared per MD. TREATMENT TIME/MINUTES/CODES 36882 28 minutes (09:05) G Codes in the area of self- : washing oneself, toileting, dressing, eating and drinking, current status GO [id number] CJ projected status GO [id number]. Discharge status (if discharging) GO [id number]. Thank you for this referral. Sanjuana Hernandez, OTR/[facility]
--- NOTE | 2018-08-22 10:06 | OTIE_ITS ---
Occupational Therapy Notes Inpatient Occupational Therapy Evaluation Date: 08/22/18 Referring Doctor:Kaylynn Mills NP OT Orders: s/p conversion of (L) hip to prostalac spacer on 08/14/18 at [facility], Dr. Cornejo. SWB Precautions: PWB, posterior hip precautions PATIENT PROFILE/ADMITTING DIAGNOSIS: Pt is a 73 year old female who was seen on 07/03/[address] Cruz for a (L) hip abscess. On 07/05/18 she underwent surgery performed by Dr. Cruz. She went to [facility] for surgery and is s/p conversion of (L) hip to prostalac spacer on 08/14/[address] Cornejo and is here under SWB rehabilitation status. Past Medical History: DMII, Disorder of gall bladder, hyperlipidemia, HTN, Obesity, abnormal hysterectomy, cholecystectomy, open carpal tunnel release, total knee replacement about 14 years ago. Current Functional Limitations: Pt reports that she is fairly (I) with ADLs. She has decreased functional activity tolerance and states that she is unable to per LE dressing throughly at this time with adherence to posterior hip precautions. Social History/Home Situation: Pt lives alone in a mobile home. She has four steps to enter with (B) railings. She reports that her home set up is all on one floor. She has a walk in shower with a shower chair and is (I) with all ADLs/IADLs. She is concerned about performing household cleaning tasks when she returns home. Equipment owned/DME: Cane, shower chair, FWW, tray for walker SUBJECTIVE: Pt was sitting in bed when OT arrived. She is tired from working with PT but is agreeable to OT session. OBJECTIVE: General Observation: Pleasant, answers questions appropriately Mental Status: A&Ox3 Pain: no c/o pain ROM: RUE WNL L UE WNL STRENGTH: RUE 5/5 throughout LUE 5/5 throughout BALANCE: Static sitting Normal Dynamic Sitting Normal SPECIAL TESTS: Daily Activity Limitations Standardized Measure [facility] AM -PAC ?6 clicks? Daily Activity Inpatient Short Form: Raw score: 22 Standardized score: 47.10 CMS score: 25.80% CMS modifier: CJ INFORMED CONSENT/EDUCATION: Pt instructed in purpose of OT Consult and plan of care. ASSESSMENT: Patient is a 73-year-old female referred to occupational therapy services with diagnosis of (L) hip abscess and was seen by Dr. Cruz on 07/03/18 and underwent surgery on 07/05/18. On 08/14/18 she was seen in [facility] and is s/p conversion of (L) hip to prostalac spacer performed by Dr. Cornejo in setting of DMII, Disorder of gall bladder, hyperlipidemia, HTN, Obesity, abno rmal hysterectomy, cholecystectomy, open carpal tunnel release, total knee replacement about 14 years ago. Pt is receptive to OT education and consult today. She is fairly (I) with ADLs/IADLs per pt report the only thing that she feels she is having difficulty with is putting on LE garments and functional activity tolerance in her home. OT recommends that pt return home when medically cleared per MD with home health services. AMPAC score 22, CMS score 25.80% Patient is assessed as a Low 42087 complexity based on the following: History: See Above Examination: See Above Presentation: Evolving Decision Making: AMPAC score 22, CMS score 25.80% GOALS 1. Dressing: Pt will be able to perform LE dressing (I) with adherence to posterior hip precautions and PWB status in sitting position with FWW when pulling LE garments up. PLAN OF CARE/TREATMENT PLAN: OT will plan to see 1x/week 5days/week for education and training in dressing, grooming, bathing, toileting activities. DISCHARGE RECOMMENDATIONS: Home with home health services when medically cleared per MD. TREATMENT TIME/MINUTES/CODES 46604 28 minutes (09:05) G Codes in the area of self- : washing oneself, toileting, dressing, eating and drinking, current status GO [id number] CJ projected status GO [id number]. Discharge status (if discharging) GO [id number]. Thank you for this referral. Sanjuana Hernandez, OTR/[facility]
--- NOTE | 2018-08-22 11:15 | PHARADMIT ---
Addendum entered by Roc Garcia III 08/23/18 12:21: Swing Bed patient here for PT & OT rehab from left hip spacer place at [facility] on 08/14/18 VS-OK INR-1.7 (on Warfarin). PO Levaquin continues per ID at [facility] Original Note: Admission Pharmacy Clinical Review SWING BED Level 1 ( Rehab) Code Status Full Code Current Weight Wgt- 105 kg Renally Cleared and Narrow Therapeutic Index Meds CrCl~ 33 mL/min Meds-OK QTc Value / Action Taken QTc-442 (on 07/16) NA BP Control, Fever BP-121/59 Tmax-37C Electrolytes reviewed Na- 140 K+40 DVT Prophylaxis Warfarin Opiate Usage / Scheduled Bowel Regimen Ordered Yes Yes Plt/SCr for Heparin / Enoxaparin Plts- 314 SCr-1.09 INR for Warfarin INR-1.6 H/H stable, WBC/Bands H&H-8.6/28.8 WBC- 6.52 Antibiotic appropriateness Levaquin PO Cultures and Sensitivities NONE Surgical ABX d/c within 24 hr NA DM control / Insulin Dosing BG- 110 Aspart, Januvia Heart Failure (Check EF%) (ROLANDO's, B-Block, Diuretics) Losartan, HCTZ IV to PO Switch No Home Meds Reviewed Yes Home Meds Not Ordered Acidophilus, Metformin, Comments
--- NOTE | 2018-08-22 11:24 | PT.INIE ---
Date of service: 08/22/18 Time of Service: 09:00 PT Notes Inpatient Physical Therapy Swingbed Evaluation Date: 08/22/18 Referring Doctor: Kaylynn Mills NP PT Orders: s/p conversion of left hip to Prostalac spacer on 08/14/[address] [facility], Dr. Cornejo. 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 Patient has planned follow-up with [facility] 09/23/2018, with potential for conversion to DAVID and as soon as 6 weeks PMHX: GERD, hypertension, diabetes Social History/Home Situation: Patient lives alone in a single level home with 4 steps to enter and right-sided rail. She reports a strong support system of friends through her muslim. She also has a nephew who is been grocery shopping for her. She reports that she had been sleeping in a recliner in the weeks leading up to her surgery, and plans to resume that upon her return home. Equipment owned/DME: [facility] SUBJECTIVE: Dena states that she's feeling well this morning. She's anxious to get up and moving. OBJECTIVE: General Observation: Resting in bed, no lines. Mental Status: A&Ox3 Pain: 0/10 ROM: RUE : Shoulder flexion to 120 degrees. Elbow and wrist motion WNL. LUE : Shoulder flexion to 160 degrees. Elbow and wrist motion WNL. RLE: WNL LLE: not assessed STRENGTH: RUE : Shoulder flexion 3-/5. Biceps 4/5. Triceps 4/5. LUE : Shoulder flexion 3/5. Biceps 4/5. Triceps 4/5. RLE: Hip flexion 5/5. Quads 4+/5. Ankle DF 5/5. LLE: Hip flexion not assessed Quads 3/5. Ankle DF 5/5. SENSATION: intact distally BED MOBILITY/TRANSFERS: Supine to sit: Supervision, head of bed 30 degrees Sit to supine: Min assist Sit to stand: Supervision Stand to sit: Supervision Bed to chair: Supervision, WW GAIT: Patient tolerates 100 feet x2 of ambulation with WW, supervision, 50% weightbearing left lower extremity BALANCE: Static sitting: Normal Dynamic Sitting: Normal Static Standing: Normal Dynamic Standing: Normal Mobility Limitations Standardized Measure [facility] AM -PAC ?6 clicks? Basic Mobility Inpatient Short Form: raw score: 20 standardized score: 47.67 CMS score: 36% [facility] modifier: CYNTHIA INFORMED CONSENT/EDUCATION: Pt instructed in purpose of PT Consult and plan of care. We reviewed patient's hip precautions, which she is fully independent with. Patient was also instructed in a therapeutic exercise program, as noted on flowsheet. ASSESSMENT: Patient is a 73 year old female referred to physical therapy services with diagnosis of osteomyelitis of the left hip, status post placement of Prostalac spacer 08/14/2018. Patient presents with clinical signs and symptoms consistent with diagnosis, now at an [facility] on swing bed level of care for rehabilitation prior to returning home independently. Patient is on hip precautions, which she is well versed in. She is also restricted to 50% weightbearing on the left lower extremity until follow-up with her orthopedist 09/23/2018. She requires PT intervention to maximize safety and independence prior to return home. She currently demonstrates the following impairment level findings 1. Restricted weightbearing left lower extremity 2. Decreased activity tolerance 3. Decreased left lower extremity strength 4. Decreased bilateral upper extremity strength Impairments are contributing to the following functional limitations: 1. Decreased activity tolerance 2. Unable to tolerate household distance ambulation 3. Unable to manage stairs [facility] score 36% deficit Patient is assessed as a Moderate 49618 complexity based on the following: o History: 73-year-old female status post conversion of left hip to Prostalac spacer due to osteomyelitis. This is complicated by patient's social situation, as she lives alone with 4 steps to enter her home, and will be returning home on partial weightbearing status. She is also morbidly obese and suffers from diabetes and hypertension, each of which will negatively impact prognosis. o Examination: Functional limitations as above o Presentation: Evolving o Decision Making: Moderate complexity GOALS Goals x1 week 1. Supine-sit: Supervision 2. Sit-Supine: supervision 3. Sit-Stand: independent 4. Stand-sit: independent 5. Bed-chair: independent with COLE SAL 6. Chair-bed: independent with COLE SAL 7. Gait: independent with COLE SAL, x 25' 8. Stairs: Single rail and min assist of 1, PWB LLE PLAN OF CARE/TREATMENT PLAN: 1-2x/day, 7 days/ week x 1 week Plan of care has been reviewed with the INSURANCE OFFICE SUPERVISOR providing the service under Physical therapy direction. Initiate physical therapy intervention for strengthening, bed mobility, transfers, gait, stairs, balance training, use of assistive device. DISCHARGE RECOMMENDATIONS: Home, with no equipment needs anticipated TREATMENT CODE/TIME: 40 minutes ([id number], [id number]) G Codes in the area mobility of walking and moving around: current status [id number] CJ projected status GP G8979- CI. Discharge status (if discharging) GP [id number].
--- NOTE | 2018-08-22 11:33 | IN_ITS ---
Date of service: 08/22/18 Time of Service: 09:00 PT Notes Inpatient Physical Therapy Swingbed Evaluation Date: 08/22/18 Referring Doctor: Kaylynn Mills NP PT Orders: s/p conversion of left hip to Prostalac spacer on 08/14/2018 at [facility], Dr. Cornejo. 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 Patient has planned follow-up with [facility] 09/23/2018, with potential for conversion to DAVID and as soon as 6 weeks PMHX: GERD, hypertension, diabetes Social History/Home Situation: Patient lives alone in a single level home with 4 steps to enter and right-sided rail. She reports a strong support system of friends through her amish. She also has a nephew who is been grocery shopping for her. She reports that she had been sleeping in a recliner in the weeks leading up to her surgery, and plans to resume that upon her return home. Equipment owned/DME: [facility] SUBJECTIVE: Dena states that she's feeling well this morning. She's anxious to get up and moving. OBJECTIVE: General Observation: Resting in bed, no lines. Mental Status: A&Ox3 Pain: 0/10 ROM: RUE : Shoulder flexion to 120 degrees. Elbow and wrist motion WNL. LUE : Shoulder flexion to 160 degrees. Elbow and wrist motion WNL. RLE: WNL LLE: not assessed STRENGTH: RUE : Shoulder flexion 3-/5. Biceps 4/5. Triceps 4/5. LUE : Shoulder flexion 3/5. Biceps 4/5. Triceps 4/5. RLE: Hip flexion 5/5. Quads 4+/5. Ankle DF 5/5. LLE: Hip flexion not assessed Quads 3/5. Ankle DF 5/5. SENSATION: intact distally BED MOBILITY/TRANSFERS: Supine to sit: Supervision, head of bed 30 degrees Sit to supine: Min assist Sit to stand: Supervision Stand to sit: Supervision Bed to chair: Supervision, WW GAIT: Patient tolerates 100 feet x2 of ambulation with WW, supervision, 50% weightbearing left lower extremity BALANCE: Static sitting: Normal Dynamic Sitting: Normal Static Standing: Normal Dynamic Standing: Normal Mobility Limitations Standardized Measure [facility] AM -PAC ?6 clicks? Basic Mobility Inpatient Short Form: raw score: 20 standardized score: 47.67 CMS score: 36% [facility] modifier: CYNTHIA INFORMED CONSENT/EDUCATION: Pt instructed in purpose of PT Consult and plan of care. We reviewed patient's hip precautions, which she is fully independent with. Patient was also instructed in a therapeutic exercise program, as noted on flowsheet. ASSESSMENT: Patient is a 73 year old female referred to physical therapy services with diagnosis of osteomyelitis of the left hip, status post placement of Prostalac spacer 08/14/2018. Patient presents with clinical signs and symptoms consistent with diagnosis, now at an [facility] on swing bed level of care for rehabilitation prior to returning home independently. Patient is on hip precautions, which she is well versed in. She is also restricted to 50% weightbearing on the left lower extremity until follow-up with her orthopedist 09/23/2018. She requires PT intervention to maximize safety and independence prior to return home. She currently demonstrates the following impairment level findings 1. Restricted weightbearing left lower extremity 2. Decreased activity tolerance 3. Decreased left lower extremity strength 4. Decreased bilateral upper extremity strength Impairments are contributing to the following functional limitations: 1. Decreased activity tolerance 2. Unable to tolerate household distance ambulation 3. Unable to manage [facility] deficit Patient is assessed as a Moderate 31168 complexity based on the following: o History: 73-year-old female status post conversion of left hip to Prostalac spacer due to osteomyelitis. This is complicated by patient's social situation, as she lives alone with 4 steps to enter her home, and will be returning home on partial weightbearing status. She is also morbidly obese and suffers from diabetes and hypertension, each of which will negatively impact prognosis. o Examination: Functional limitations as above o Presentation: Evolving o Decision Making: Moderate complexity GOALS Goals x1 week 1. Supine-sit: Supervision 2. Sit-Supine: supervision 3. Sit-Stand: independent 4. Stand-sit: independent 5. Bed-chair: independent with COLE SAL 6. Chair-bed: independent with COLE SAL 7. Gait: independent with COLE SAL, x 25' 8. Stairs: Single rail and min assist of 1, PWB LLE PLAN OF CARE/TREATMENT PLAN: 1-2x/day, 7 days/ week x 1 week Plan of care has been reviewed with the MAINTENANCE ELECTRICIAN providing the service under Physical therapy direction. Initiate physical therapy intervention for strengthening, bed mobility, transfers, gait, stairs, balance training, use of assistive device. DISCHARGE RECOMMENDATIONS: Home, with no equipment needs anticipated TREATMENT CODE/TIME: 40 minutes (02488, 81686) G Codes in the area mobility of walking and moving around: current status [id number] CJ projected status GP G8979- CI. Discharge status (if discharging) GP [id number].
--- NOTE | 2018-08-22 12:23 | PT.INTREAT ---
Date of service: 08/22/18 Time of Service: 12:26 PT Notes Inpatient Physical Therapy Treatment Note [facility] Date: 08/22/18 PRECAUTIONS: Posterior total hip precautions L, 50% WB L SUBJECTIVE: Dena is agreeable to participating in PT. OBJECTIVE: PAIN: Patient complained of L groin discomfort with stair training and gait BED MOBILITY/TRANSFERS Sit-stand: S Stand-sit: S GAIT Assistive Device: FWW Weight bearin% WB L Assist: S Distance: 100' x2 Deviation: Standing rest x3 THEREX: Patient completed a lower extremity strengthening and stabilization program, in a seated position, as per flow sheet. STAIRS: Up/down 6x4 using B rails and a step to pattern with supervision. ASSESSMENT: Patient tolerated session with complaints of L groin pain with stair training and gait training. Patient was instructed to maintain 50% weight-bear instructions with gait and stair training. Patient would benefit from continued gait training as well as strengthening for improved mobility and mechanics. PLAN: Continue with PTs POC TREATMENT CODE/TIME: 30 minutes; ([id number], [id number])
[2018-08-22] MEDS: Insulin Aspart 300 UNITS/3 ML PEN SC (12:28)
[2018-08-22] MEDS: Magnesium Chloride 64 MG TABCR PO ×2 (12:29→21:58)
[2018-08-22 16:15] VITALS: BP 149/72; PULSE 94; RESP 20; TEMP 37.1; O2SAT 97
--- NOTE | 2018-08-22 17:51 | CHAPLAIN ---
Dena's polymerization kettle operator from the [facility] visited her this morning. She was talking on the phone with her sister in [facility] when I stopped in this afternoon. She was very happy to be back in [facility] and at [facility]. Dena said she slept really well last night. She may be discharged on Sunday, but was waiting to hear from Dr. Cruz about details.
[2018-08-22 22:48] VITALS: BP 134/70; PULSE 93; RESP 20; TEMP 36.4; O2SAT 95
[2018-08-23 00:34] VITALS: BP 144/73; PULSE 89; RESP 18; TEMP 36.8; O2SAT 96
[2018-08-23 07:30] VITALS: BP 136/80; PULSE 81; RESP 18; TEMP 36.3; O2SAT 97
[2018-08-23 07:38] LABS: INR 1.7 (0.9-1.1); Prothrombin Time 16.6 sec (9.3-11.0)
--- NOTE | 2018-08-23 08:03 | W.PM.PROGNOT ---
Date of Service Date of service: 08/23/18 Time of Service: 07:50 Assessment and Plan (1) Pyogenic arthritis: Current visit: No Status: Acute Dena is a 73-year-old who is about 9 days out from resection arthroplasty, irrigation debridement, and hip spacer implantation of the left side. She reports to be doing much better now than she was from before the surgery. At this point things seem to be progressing properly. I am very impressed with her level of mobility and relative independence. I do think she will be able to go home with home health services. We will continue antibiotics per infectious disease recommendations. I will look at the wound on Sunday and consider removing jose at that time. Qualifiers: Septic arthritis location: hip Septic arthritis organism: due to other bacteria Laterality: left Qualified Code(s): M00.852 - Arthritis due to other bacteria, left hip Subjective Interval history since last seen: Dena in general reports be doing well. She is happy with the pain level. The pain is much less than it was from before the most recent surgery. She is a little over week out from resection arthroplasty of the left hip with implantation of cement spacer. She is able to mobilize with minimal assistance. She is hopeful that she will build to go home in a few days. She denies any fevers or chills. Again, the pain is much better. She denies numbness or tingling. Exam Narrative Exam Narrative: Dena is seen ambulating from the bathroom to the bed. She does so with minimal assistance using a walker to offload her weight. She able to maneuver herself into the chair. While she is still standing I did examine the wound which showed no signs of erythema. The medical expressing is intact. There is no drainage or discharge. There is some fullness to the left thigh but it is compressible. No significant pain with palpation. She tolerates some gentle flexion, internal rotation, external rotation of the hip all the range of motion was not really tested given the known spacer. Sensation intact light touch over the deep and superficial peroneal nerves and tibial nerve. The foot is warm well perfused. Objective Objective Clinical Data: Abnormal lab results 08/23/18 Range/Units 07:15 PT 16.6 H (9.3-11.0) sec INR 1.7 H (0.9-1.1) Vital Signs Temperature 36.8 C 08/23/18 00:34 Temperature Source Tympanic 08/23/18 00:34 Pulse 89 08/23/18 00:34 Pulse Rhythm Regular 08/22/18 21:03 Respiratory Rate 18 08/23/18 00:34 Respiratory Effort Non-Labored 08/22/18 21:03 Respiratory Depth Normal 08/22/18 21:03 Respiratory Pattern Normal 08/22/18 21:03 Blood Pressure 144/73 H 08/23/18 00:34 Pulse Oximetry 96 08/23/18 00:34 Oxygen Delivery Method Room Air 08/23/18 00:34 Oxygen Flow Rate 0 08/23/18 00:34 Pain Level 0 08/22/18 16:15 Intake & Output 08/22/18 08/22/18 08/23/18 11:59 23:59 11:59 Intake Total 720 / 720 300 / 300 Balance 720 / 720 300 / 300 Intake: Oral 720 / 720 300 / 300 Other: Urine Color Yellow Yellow Urine Appearance Clear Clear Urine Odor Normal Comment amount unknown voided into toilet. Stool Size Moderate Stool Characteristics Formed Voiding Methods Toilet Toilet Laboratory Results WBC 6.52 k/cumm (4.4-10.8) 08/22/18 06:52 RBC 3.08 m/cumm (4.00-5.20) L 08/22/18 06:52 Hgb 8.6 g/dL (12.0-15.5) L 08/22/18 06:52 Hct 28.8 % (36.0-46.0) L 08/22/18 06:52 MCV 93.5 fL (80-95) 08/22/18 06:52 MCH 27.9 pg (27.0-33.0) 08/22/18 06:52 MCHC 29.9 g/dL (32.0-36.0) L 08/22/18 06:52 RDW 14.5 % (11.7-14.6) 08/22/18 06:52 Plt Count 314 x1000/uL (130-400) 08/22/18 06:52 MPV 8.8 fL (8.0-11.0) 08/22/18 06:52 PT 16.6 sec (9.3-11.0) H 08/23/18 07:15 INR 1.7 (0.9-1.1) H 08/23/18 07:15 Sodium 140 mmol/L (136-145) 08/22/18 06:52 Potassium 4.0 mmol/L (3.5-5.1) 08/22/18 06:52 Chloride 104 mmol/L (98-107) 08/22/18 06:52 Carbon Dioxide 30.3 mmol/L (21.0-32.0) 08/22/18 06:52 Anion Gap 5.7 mmol/L (3-11) 08/22/18 06:52 BUN 23 mg/dL (7-18) H 08/22/18 06:52 Creatinine 1.09 mg/dL (0.55-1.02) H 08/22/18 06:52 Estimated GFR/1.73 m2 49.20 (mL/min/1.73m2) 08/22/18 06:52 Glucose 110 mg/dL (70-100) H 08/22/18 06:52 Calcium 9.1 mg/dL (8.5-10.1) 08/22/18 06:52
[2018-08-23] MEDS: sitaGLIPtin 25 MG TABLET 50 MG PO (09:19)
[2018-08-23] MEDS: Atorvastatin 10 MG TAB PO (09:19)
[2018-08-23] MEDS: Omeprazole 20 MG CAPCR PO (09:19)
[2018-08-23] MEDS: Naproxen 500 MG TAB PO ×2 (09:19→21:16)
--- NOTE | 2018-08-23 10:43 | PT.INTREAT ---
Date of service: 08/23/18 Time of Service: 10:43 PT Notes Inpatient Physical Therapy Treatment Note [facility] Date: 08/23/18 PRECAUTIONS: Posterior total hip precautions L, 50% WB L SUBJECTIVE: Dena states that she is feeling much better today, that she has been ambulating in her room independently. OBJECTIVE: PAIN: No complaints of pain. BED MOBILITY/TRANSFERS Sit-stand: I Stand-sit: I GAIT Assistive Device: FWW Weight bearin% WB L Assist: S Distance: 120' x2 Deviation: Standing rest x1 THEREX: Patient completed a lower extremity strengthening and stabilization program, as per flow sheet. STAIRS: Up/down 6x4 using B rails and a step to pattern with supervision TOILETING: Patient toileted independently, with assist for wiping only. ASSESSMENT: Patient tolerated session well without complaints of pain. Patient was able to tolerate a slight progression in her gait distance with FWW support maintaining 50% WB status on L. Patient would benefit from continued gait and transfer training as well as strengthening for improved activity tolerance. PLAN: Continue with PTs POC TREATMENT CODE/TIME: 40 minutes; [id number], [id number]
--- NOTE | 2018-08-23 11:51 | OT.INTREAT ---
Date of service: 08/23/18 Time of Service: 10:15 Occupational Therapy Notes Occupational Therapy Inpatient Treatment Note Date: 08/23/18 PRECAUTIONS: PWB (L) LE, Posterior hip precautions SUBJECTIVE: Pt was sitting in chair she reports that the plan is for her to go home sunday and she states she has been working hard to make sure that this happens. OBJECTIVE: PAIN:no c/o pain FUNCTIONAL MOBILITY Sit-stand: (I) , FWW Stand-sit: (I), FWW Toilet-Chair: S, FWW Chair-Toilet: S, FWW DRESSING: Lower Extremity: Educated and trained in donning and doffing pants with use of dressing hook in the sitting position with adherence to posterior hip precautions. Pt demonstrated good technique with min vc. She was able to don and doff her street clothes from home. TOILETING: Device: Toilet Assist: (I) ASSESSMENT: Pt demonstrates functionally increased (I) with LE dressing and ADL/IADL routines. She demonstrated progressed improvements with functional mobility and functional activitiy tolerance with adherence to precautions. PLAN: Pt reports that the plan is for her to be discharged on Sunday08/26/18. OT recommends that pt have Home Health services at home when medically cleared per MD. TREATMENT CODES/TIME: [id number], 25 minutes (10:15) [facility]
--- NOTE | 2018-08-23 11:58 | OTTR_ITS ---
Date of service: 08/23/18 Time of Service: 10:15 Occupational Therapy Notes Occupational Therapy Inpatient Treatment Note Date: 08/23/18 PRECAUTIONS: PWB (L) LE, Posterior hip precautions SUBJECTIVE: Pt was sitting in chair she reports that the plan is for her to go home sunday and she states she has been working hard to make sure that this happens. OBJECTIVE: PAIN:no c/o pain FUNCTIONAL MOBILITY Sit-stand: (I) , FWW Stand-sit: (I), FWW Toilet-Chair: S, FWW Chair-Toilet: S, FWW DRESSING: Lower Extremity: Educated and trained in donning and doffing pants with use of dressing hook in the sitting position with adherence to posterior hip precautions. Pt demonstrated good technique with min vc. She was able to don and doff her street clothes from home. TOILETING: Device: Toilet Assist: (I) ASSESSMENT: Pt demonstrates functionally increased (I) with LE dressing and ADL/IADL routines. She demonstrated progressed improvements with functional mobility and functional activitiy tolerance with adherence to precautions. PLAN: Pt reports that the plan is for her to be discharged on Sunday08/26/18. OT recommends that pt have Home Health services at home when medically cleared per MD. TREATMENT CODES/TIME: [id number], 25 minutes (10:15) [facility]
[2018-08-23] MEDS: Magnesium Chloride 64 MG TABCR PO ×2 (12:39→21:17)
--- NOTE | 2018-08-23 14:33 | PT.INTREAT ---
Date of service: 08/23/18 Time of Service: 14:33 PT Notes Inpatient Physical Therapy Treatment Note [facility] Date: 08/23/18 PRECAUTIONS:50% wt bearing L LE SUBJECTIVE: OBJECTIVE: Sit-stand: I Stand-sit: I GAIT Assistive Device: FWW Weight bearin% wt bearing L LE Assist: SBA Distance: [id number] THEREX: Pt completed LE strengthening ther ex as per flow sheet while in the seated position. ASSESSMENT: Pt tolerated today's session fairly well. Pt did require rest periods due to some slight SOB and fatigue. Pt was very motivated to complete her PT session this afternoon. PLAN: Cont as per PT POC. TREATMENT CODE/TIME: 1:50-2:05 (15) TA
--- NOTE | 2018-08-23 14:37 | PTTR_ITS ---
Date of service: 08/23/18 Time of Service: 14:33 PT Notes Inpatient Physical Therapy Treatment Note [facility] Date: 08/23/18 PRECAUTIONS:50% wt bearing L LE SUBJECTIVE: OBJECTIVE: Sit-stand: I Stand-sit: I GAIT Assistive Device: FWW Weight bearin% wt bearing L LE Assist: SBA Distance: [id number] THEREX: Pt completed LE strengthening ther ex as per flow sheet while in the seated position. ASSESSMENT: Pt tolerated today's session fairly well. Pt did require rest periods due to some slight SOB and fatigue. Pt was very motivated to complete her PT session this afternoon. PLAN: Cont as per PT POC. TREATMENT CODE/TIME: 1:50-2:05 (15) TA
--- NOTE | 2018-08-23 14:37 | PT.INTREAT ---
Date of service: 08/23/18 Time of Service: 14:37 PT Notes Inpatient Physical Therapy Treatment Note [facility] Date: 08/23/18 PRECAUTIONS:Fall precautions SUBJECTIVE: Pt reports that she is doing better today then yesterday. She states that it was a stressful day yesterday and she did not get much sleep but she was able to taqke a couple of short naps today and that has been helpful. Pt reports that she is still tired and is not bale to walk but will try standing. OBJECTIVE: Sit-stand: CGA Stand-sit: CGA GAIT Assistive Device: FWW Weight bearing: Full Assist: CGA Distance: Statci standing to fatigue. Pt was too tired to walk this afternoon. THEREX: Pt completed UE and LE strengthening ther ex as per flow sheet. ASSESSMENT: Pt tolerated today's session fairly well. Pt was tired and somewhat SOB this afternoon. She was not able to tolerate any ambulation because of this. PLAN: Cont as per PT POC. TREATMENT CODE/TIME: 2:05-2:30 (92) TPx2
[2018-08-23 15:55] VITALS: BP 126/68; PULSE 87; RESP 18; TEMP 36.4; O2SAT 98
--- NOTE | 2018-08-23 15:59 | CM.SWINGPC ---
- If Service Date Differs Date of service: 08/21/18 Time of Service: 04:00 Swingbed Plan of Care Plan of care: SWING BED PROGRAM ACTIVITIES/DISCHARGE PLAN OF CARE ACTIVITIES PLAN Date: 08/21/18 Identified Need: Stair training, transfer training, continued strengthening and gait balance, self care needs and education prior to returning home Intervention/Plan: PT/OT Initials: [facility] DISCHARGE PLAN Date: 08/21/18 Identified Need: Coordinated discharge plan Intervention/Plan: CM Assessment, Self Assessment. Identify functional needs and resources to be coordinated prior to and ordered upon discharge. Initials: LAVON
--- NOTE | 2018-08-23 17:28 | CM.SBPSYCH ---
SB Psychosocial/Act.Assessment - Hospital Admission Admission Date: 08/21/18 Admission From:: [facility] – [place] Diagnosis:: SWB1 - Swing Bed Admission Swing Bed Admit Date:: 08/21/18 Swing Bed Level of Care: Level 1/SNF - Social Supports PREVIOUS FUNCTIONAL STATUS/SOCIAL/FAMILY SUPPORTS:: Dena resides alone in [place] and has been for many years, she states that she has friends/neighbors whom are local and supportive. Dena states that her mu-ism is very supportive, as well as her damascener. 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 Prior to recent medical issues she was independent with all ADLs in the community. - Prior to Admission Living Arrangements/Environment Prior to Admission:: Dena resides alone in [place] and has been for many years, she states that she has friends/neighbors whom are local and supportive. - Work History Employment Status:: Employed at [employer]; reports she anticipates losing her insurance after her extended short term disability through [employer]. 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 - Advance Directives for Healthcare Advance Directives for Healthcare: Advance Directives Advance Directive Agent: Marie Rizvi - Present Functional Status Cognitive:: Alert and oriented x4 Communication:: Enjoys conversing with others, communicates appropriately. Behavior:: Friendly, engaging, pleasant. - Medical History PAST MEDICAL HISTORY/PAST SURGICAL HISTORY:: Diabetes mellitus, type 2. Disorder of gallbladder. Female infertility. Hyperlipidemia. Hypertension. Obesity. Abdominal hysterectomy. Biopsy of breast. Cholecystectomy. Dilation and curettage. Open Carpal Tunnel release. Replacement of total knee joint - Admission Data Reason for Swing Bed Admission:: Rehabiliation; PT/OT to ensure safe discharge planning as Dena resides alone. Discharge Plan:: Home with VNA supports, SHIP attachment for MCR navigation, COA; SHIP, Options Counseling, Case Managment attachment, MOW. Assessment: Short term rehab stay prior to returning home; appropriate for [facility] program at [employer]. Public Address System Mechanic: Damaris Wylie Date Assessment was completed:: 08/21/18
--- NOTE | 2018-08-23 20:10 | CMSA_ITS ---
SB Psychosocial/Act.Assessment - Hospital Admission Admission Date: 08/21/18 Admission From:: [facility] Diagnosis:: SWB1 - Swing Bed Admission Swing Bed Admit Date:: 08/21/18 Swing Bed Level of Care: Level 1/SNF - Social Supports PREVIOUS FUNCTIONAL STATUS/SOCIAL/FAMILY SUPPORTS:: Dena resides alone in [place] and has been for many years, she states that she has friends/neighbors whom are local and supportive. Dena states that her christian is very supportive, as well as her emergency veterinary assistant. 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 Prior to recent medical issues she was independent with all ADLs in the community. - Prior to Admission Living Arrangements/Environment Prior to Admission:: Dena resides alone in [place] and has been for many years, she states that she has friends/ne ighbors whom are local and supportive. - Work History Employment Status:: Employed at [employer]; reports she anticipates losing her insurance after her extended short term disability through [employer]. Voacation:: SPD at [employer] - [place]: No 's Spouse: No - Benefits Financial: Social Security, Medicare, Commerical - Mormonism Active Sabianist Member:: Yes Importance of Rika:: Part of her identity, support system. - Advance Directives for Healthcare Advance Directives for Healthcare: Advance Directives Advance Directive Agent: Marie Rizvi - Present Functional Status Cognitive:: Alert and oriented x4 Communication:: Enjoys conversing with others, communicates appropriately. Behavior:: Friendly, engaging, pleasant. - Medical History PAST MEDICAL HISTORY/PAST SURGICAL HISTORY:: Diabetes mellitus, type 2. Disorder of gallbladder. Female infertility. Hyperlipidemia. Hypertension. Obesity. Abdominal hysterectomy. Biopsy of breast. Cholecystectomy. Dilation and curettage. Open Carpal Tunnel release. Replacement of total knee joint - Admission Data Reason for Swing Bed Admission:: Rehabiliation; PT/OT to ensure safe discharge planning as Dena resides alone. Discharge Plan:: Home with VNA supports, SHIP attachment for MCR navigation, COA; SHIP, Options Counseling, Case Managment attachment, MOW. Assessment: Short term rehab stay prior to returning home; appropriate for [facility] program at [facility] [facility]. Director Of Assessing: Damaris Wylie Date Assessment was completed:: 08/21/18
--- NOTE | 2018-08-23 20:10 | PDOC.CMPRO ---
Care Management Progress Note Dena was friendly and pleasant in interaction when CM met with her to review discharge plan. Dena reported feeling confident with returning home with increased supports and shared that she met with Wen Carmona of [facility] to begin resource attachment for SHIP and MOW. SHIP coordination will help Dena navigate signing up for additional MCR coverage and provide informed choice. Dena is unsure at this time who will transport her home on Sunday, but plans on connecting with her supports over the weekend. She reports starting stair training with PT and plans to purchase a counter top oven so she does not have to bend. She reports learning alot through this process and is gracious in interaction.
[2018-08-23 23:43] VITALS: BP 148/70; PULSE 92; RESP 19; TEMP 36.9; O2SAT 95
[2018-08-24 06:53] LABS: INR 1.7 (0.9-1.1)
[2018-08-24 09:40] VITALS: BP 153/82; PULSE 82; RESP 20; TEMP 36.4; O2SAT 90
[2018-08-24] MEDS: Nystatin POWDER 15 GM JAR TP ×3 (10:03→21:21)
[2018-08-24] MEDS: sitaGLIPtin 25 MG TABLET 50 MG PO (10:04)
[2018-08-24] MEDS: Atorvastatin 10 MG TAB PO (10:05)
[2018-08-24] MEDS: Omeprazole 20 MG CAPCR PO (10:05)
[2018-08-24] MEDS: Magnesium Chloride 64 MG TABCR PO ×2 (10:05→21:21)
[2018-08-24] MEDS: Warfarin 1 MG TAB PO (10:05)
[2018-08-24] MEDS: Naproxen 500 MG TAB PO ×2 (10:05→21:21)
--- NOTE | 2018-08-24 12:51 | PT.INTREAT ---
Date of service: 08/24/18 Time of Service: 09:40 PT Notes Inpatient Physical Therapy Treatment Note [facility] Date: 08/24/18 SUBJECTIVE: []Dena states that she is ready to go home. This should happen on Sunday. OBJECTIVE: [] BED MOBILITY/TRANSFERS Sit-stand:I Stand-sit: I GAIT Assistive Device: FWW Weight bearin% left Assist: S Distance: 125'x2 THEREX: for global LE strengthening, as per flowsheet. STAIRS: 4 step x3, using bilateral rails and step to sequence. ASSESSMENT: tolerated session well. Is independent with functional mobility. PLAN: cont with PT POC. TREATMENT CODE/TIME: 25 min. TPx1, TAx1.
[2018-08-24 16:14] VITALS: BP 148/65; PULSE 85; RESP 18; TEMP 36.4; O2SAT 98
[2018-08-24 23:56] VITALS: BP 154/72; PULSE 86; RESP 19; TEMP 37; O2SAT 96
[2018-08-25 07:20] VITALS: BP 119/51; PULSE 103; RESP 20; TEMP 36.5; O2SAT 99
[2018-08-25] MEDS: Nystatin POWDER 15 GM JAR TP ×2 (08:59→20:16)
[2018-08-25] MEDS: Atorvastatin 10 MG TAB PO (09:00)
[2018-08-25] MEDS: sitaGLIPtin 25 MG TABLET 50 MG PO (09:00)
[2018-08-25] MEDS: Omeprazole 20 MG CAPCR PO (09:00)
[2018-08-25] MEDS: Naproxen 500 MG TAB PO ×2 (09:00→20:11)
[2018-08-25 09:08] LABS: INR 1.7 (0.9-1.1); Prothrombin Time 16.9 sec (9.3-11.0)
[2018-08-25] MEDS: Magnesium Chloride 64 MG TABCR PO ×2 (09:45→20:11)
--- NOTE | 2018-08-25 11:54 | PT.INTREAT ---
Date of service: 08/25/18 Time of Service: 10:10 PT Notes Inpatient Physical Therapy Treatment Note [facility] Date08/25/18 PRECAUTIONS:[]L posterior hip precautions. 50% WB SUBJECTIVE: Dena states that she is doing better. She is looking forward to going home. OBJECTIVE: [] BED MOBILITY/TRANSFERS Sit-stand: I Stand-sit: I Bed-Chair: [] GAIT Assistive Device:FWW Weight bearin% wb'ing left. Assist: S Distance: 150' THEREX:global LE strengthening, see flowsheet for details. ASSESSMENT: tolerated session well. Offered no c/o pain or fatigue. PLAN: continue following PT POC. TREATMENT CODE/TIME: 30 min. TPx1, TAx1
[2018-08-25 16:02] VITALS: BP 117/69; PULSE 89; RESP 18; TEMP 36.8; O2SAT 98
--- NOTE | 2018-08-25 18:59 | PDOC.CMPRO ---
- If Service Date Differs Date of service: 08/25/18 Time of Service: 18:59 Care Management Progress Note S/O: CM met with Dena at the bedside she is alert and engaged. She states she is feeling a little nervous about returning home however feels she has a good support system. Her friends from her christianity have volunteered to help her at home including cleaning and shopping. She has been in contact with Wen Pinedo at [facility] and is receiving options through service. She is considering MOW however has not decided for sure at this time. Dena is concerned about the financial burden of home health services. She would like to know the out of pocket cost before agreeing to to many services. She is currently receiving short term disability and has limited income. CM will contact intake and have them review her insurance to provide estimated out of pocket cost for services. CM did review options for sliding scale through [facility]. Dena returns to at [facility] on 09/23/18 for follow up. She will remain on Coumadin for anticoagulation until her follow up. She will benefit from home health services for coagulation labs. She will be unable to leave the home frequently due to limitations and transportation. Dena remains in good spirts she is thankful for the care she has received and has confidence in her providers. She plans to have her friend Tania bring her home tomorrow at time of discharge. Dena has all the equipment she needs for discharge. 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 She will remain on oral antibiotics and anticoagulation until her follow up with [facility]. She has been referred to [facility] and is working with Wen Pinedo for services in the community. Friend to transport home at time of discharge.
--- NOTE | 2018-08-25 19:18 | CMPROGNOTE_ITS ---
- If Service Date Differs Date of service: 08/25/18 Time of Service: 18:59 Care Management Progress Note S/O: CM met with Dena at the bedside she is alert and engaged. She states she is feeling a little nervous about returning home however feels she has a good support system. Her friends from her muslim have volunteered to help her at home including cleaning and shopping. She has been in contact with Wen Pinedo at [facility] and is receiving options through service. She is considering MOW however has not decided for sure at this time. Dena is concerned about the financial burden of home health services. She would like to know the out of pocket cost before agreeing to to many services. She is currently receiving short term disability and has limited income. CM will contact intake and have them review her insurance to provide estimated out of pocket cost for services. CM did review options for sliding scale through [facility]. Dena returns to at [facility] on 09/23/18 for follow up. She will remain on Coumadin for anticoagulation until her follow up. She will benefit from home health services for coagulation labs. She will be unable to leave the home frequently due to limitations and transportation. Dena remains in good spirts she is thankful for the care she has received and has confidence in her providers. She plans to have her friend Tania bring her home tomorrow at time of discharge. Dena has all the equipment she needs for discharge. 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 She will remain on oral antibiotics and anticoagulation until her follow up with [facility]. She has been referred to [facility] and is working with Wen Pinedo for services in the community. Friend to transport home at time of discharge.
[2018-08-26 00:05] VITALS: BP 152/73; PULSE 85; RESP 18; TEMP 36.1; O2SAT 97
[2018-08-26 07:40] VITALS: BP 131/69; PULSE 78; RESP 18; TEMP 36.9; O2SAT 98
[2018-08-26] MEDS: Naproxen 500 MG TAB PO (07:45)
[2018-08-26] MEDS: Omeprazole 20 MG CAPCR PO (07:45)
[2018-08-26] MEDS: Nystatin POWDER 15 GM JAR TP (07:45)
[2018-08-26] MEDS: sitaGLIPtin 25 MG TABLET 50 MG PO (07:45)
[2018-08-26 07:46] LABS: INR 1.9 (0.9-1.1)
[2018-08-26] MEDS: Atorvastatin 10 MG TAB PO (07:46)
[2018-08-26] MEDS: Magnesium Chloride 64 MG TABCR PO (09:12)
--- NOTE | 2018-08-26 10:22 | PT.INDS ---
Date of service: 08/26/18 Time of Service: 08:30 PT Notes Date: 08/26/18 Referring Doctor: Kaylynn Mills NP PT Orders: s/p conversion of left hip to Prostalac spacer on 08/14/2018 at [facility], Dr. Cornejo. 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 Patient has planned follow-up with [facility] 09/23/2018, with potential for conversion to DAVID in as soon as 6 weeks. She's participated in PT intervention 1-2 times per day for the past 5 days, with good improvements in safety and mobility. Treatment Dates: 08/22/18 - 08/26/18 PMHX: GERD, hypertension, diabetes Social History/Home Situation: Patient lives alone in a single level home with 4 steps to enter and right-sided rail. She reports a strong support system of friends through her buddhism. She also has a nephew who is been grocery shopping for her. She reports that she had been sleeping in a recliner in the weeks leading up to her surgery, and plans to resume that upon her return home. Equipment owned/DME: [facility] SUBJECTIVE: Dena states that she's feeling well this morning. She's somewhat nervous about returning home, although states that she has a great deal of support. OBJECTIVE: General Observation: Resting in recliner, no lines. Mental Status: A&Ox3 Pain: 0/10 ROM: RUE : Shoulder flexion to 120 degrees. Elbow and wrist motion WNL. LUE : Shoulder flexion to 160 degrees. Elbow and wrist motion WNL. RLE: WNL LLE: She functionally demonstrates hip abduction to 20 degrees, hip flexion to 85 degrees. Knee range of motion is within functional limits. STRENGTH: RUE : Shoulder flexion 3-/5. Biceps 4/5. Triceps 4/5. LUE : Shoulder flexion 3/5. Biceps 4/5. Triceps 4/5. RLE: Hip flexion 5/5. Quads 4+/5. Ankle DF 5/5. LLE: Hip flexion not assessed Quads 3/5. Ankle DF 5/5. SENSATION: intact distally BED MOBILITY/TRANSFERS: Supine to sit: Supervision, head of bed 30 degrees Sit to supine: Min assist Sit to stand: Independent Stand to sit: Independent Bed to chair: Independent, WW GAIT: Patient tolerates ambulation x 150' x 1, and 100'x1 with WW, supervision, 50% weightbearing left lower extremity STAIRS: Patient was consistently able to manage therapeutic stairs, ascending and descending steps (6 inch x2, 4 inch x3) with bilateral rails and step 2 pattern, 50% weightbearing on left lower extremity, with supervision only. BALANCE: Static sitting: Normal Dynamic Sitting: Normal Static Standing: Normal Dynamic Standing: fair INFORMED CONSENT/EDUCATION: Pt instructed in purpose of PT Consult and plan of care. We reviewed patient's hip precautions, which she is fully independent with. We reviewed her therapeutic exercise program, which she demonstrates good understanding of. Treatment: Today's session consisted of supervised ambulation, as noted above. She was also instructed in a therapeutic exercise program, consisting of the following activities: 1. Seated hip abduction, 10 times 2. Seated ankle pumps, 20 times 3. Shoulder flexion, 10 times 4. Shoulder rows, 10 times 5. LAQ, 10 times each ASSESSMENT: Patient is a 73 year old female referred to physical therapy services with diagnosis of osteomyelitis of the left hip, status post placement of Prostalac spacer 08/14/2018. Patient participating in skilled PT intervention 1-2 times per day for 5 days during her rehab stay here on swing bed status. She has made excellent gains in mobility and safety, and is now appropriate for transition back home, with community support. She would benefit from ongoing physical therapy via home health services, although has concerns about cost; she is looking into this with care management and I would certainly recommend ongoing PT intervention if she is able to do so. At this point she is appropriate for discharge from PT services in acute care setting. GOALS Goals x1 week 1. Supine-sit: Supervision (MET) 2. Sit-Supine: supervision (MET) 3. Sit-Stand: independent(MET) 4. Stand-sit: independent(MET) 5. Bed-chair: independent with WW, PWB LLE(MET) 6. Chair-bed: independent with WW, PWB LLE(MET) 7. Gait: independent with WW, PWB LLE, x 25'(MET) 8. Stairs: Single rail and min assist of 1, PWB LLE(MET) PLAN OF CARE/TREATMENT PLAN: Discharge from PT in acute care setting DISCHARGE RECOMMENDATIONS: Home with HH PT if patient is able to coordinate payment TREATMENT CODE/TIME: 25 minutes ([id number], [id number])
--- NOTE | 2018-08-26 10:25 | INDS_ITS ---
Date of service: 08/26/18 Time of Service: 08:30 PT Notes Date: 08/26/18 Referring Doctor: Kaylynn Mills NP PT Orders: s/p conversion of left hip to Prostalac spacer on 08/14/2018 at [facility], Dr. Cornejo. 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 Patient has planned follow-up with [facility] 09/23/2018, with potential for conversion to DAVID in as soon as 6 weeks. She's participated in PT intervention 1-2 times per day for the past 5 days, with good improvements in safety and mobility. Treatment Dates: 08/22/18 - 08/26/18 PMHX: GERD, hypertension, diabetes Social History/Home Situation: Patient lives alone in a single level home with 4 steps to enter and right-sided rail. She reports a strong support system of friends through her moravian. She also has a nephew who is been grocery shopping for her. She reports that she had been sleeping in a recliner in the weeks leading up to her surgery, and plans to resume that upon her return home. Equipment owned/DME: [facility] SUBJECTIVE: Dena states that she's feeling well this morning. She's somewhat nervous about returning home, although states that she has a great deal of support. OBJECTIVE: General Observation: Resting in recliner, no lines. Mental Status: A&Ox3 Pain: 0/10 ROM: RUE : Shoulder flexion to 120 degrees. Elbow and wrist motion WNL. LUE : Shoulder flexion to 160 degrees. Elbow and wrist motion WNL. RLE: WNL LLE: She functionally demonstrates hip abduction to 20 degrees, hip flexion to 85 degrees. Knee range of motion is within functional limits. STRENGTH: RUE : Shoulder flexion 3-/5. Biceps 4/5. Triceps 4/5. LUE : Shoulder flexion 3/5. Biceps 4/5. Triceps 4/5. RLE: Hip flexion 5/5. Quads 4+/5. Ankle DF 5/5. LLE: Hip flexion not assessed Quads 3/5. Ankle DF 5/5. SENSATION: intact distally BED MOBILITY/TRANSFERS: Supine to sit: Supervision, head of bed 30 degrees Sit to supine: Min assist Sit to stand: Independent Stand to sit: Independent Bed to chair: Independent, WW GAIT: Patient tolerates ambulation x 150' x 1, and 100'x1 with WW, supervision, 50% weightbearing left lower extremity STAIRS: Patient was consistently able to manage therapeutic stairs, ascending and descending steps (6 inch x2, 4 inch x3) with bilateral rails and step 2 pattern, 50% weightbearing on left lower extremity, with supervision only. BALANCE: Static sitting: Normal Dynamic Sitting: Normal Static Standing: Normal Dynamic Standing: fair INFORMED CONSENT/EDUCATION: Pt instructed in purpose of PT Consult and plan of care. We reviewed patient's hip precautions, which she is fully independent with. We reviewed her therapeutic exercise program, which she demonstrates good understanding of. Treatment: Today's session consisted of supervised ambulation, as noted above. She was also instructed in a therapeutic exercise program, consisting of the following activities: 1. Seated hip abduction, 10 times 2. Seated ankle pumps, 20 times 3. Shoulder flexion, 10 times 4. Shoulder rows, 10 times 5. LAQ, 10 times each ASSESSMENT: Patient is a 73 year old female referred to physical therapy services with diagnosis of osteomyelitis of the left hip, status post placement of Prostalac spacer 08/14/2018. Patient participating in skilled PT intervention 1-2 times per day for 5 days during her rehab stay here on swing bed status. She has made excellent gains in mobility and safety, and is now appropriate for transition back home, with community support. She would benefit from ongoing physical therapy via home health services, although has concerns about cost; she is looking into this with care management and I would certainly recommend ongoing PT intervention if she is able to do so. At this point she is appropriate for discharge from PT services in acute care setting. GOALS Goals x1 week 1. Supine-sit: Supervision (MET) 2. Sit-Supine: supervision (MET) 3. Sit-Stand: independent(MET) 4. Stand-sit: independent(MET) 5. Bed-chair: independent with WW, PWB LLE(MET) 6. Chair-bed: independent with WW, PWB LLE(MET) 7. Gait: independent with WW, PWB LLE, x 25'(MET) 8. Stairs: Single rail and min assist of 1, PWB LLE(MET) PLAN OF CARE/TREATMENT PLAN: Discharge from PT in acute care setting DISCHARGE RECOMMENDATIONS: Home with HH PT if patient is able to coordinate payment TREATMENT CODE/TIME: 25 minutes ([id number], [id number])
--- NOTE | 2018-08-26 11:34 | OT.INDS ---
Date of service: 08/26/18 Time of Service: 09:50 Occupational Therapy Notes Occupational Therapy Inpatient Discharge Summary Dates of Service: 08/22/18-08/26/18 Date: 08/26/18 Referring Doctor:Kaylynn Mills NP OT Orders: s/p conversion of (L) hip to prostalac spacer on 08/14/18 [place] [facility] Cornejo. SWB Precautions: PWB, posterior hip precautions PATIENT PROFILE/ADMITTING DIAGNOSIS: Pt is a 73 year old female who was seen on 07/03/[address] Cruz for a (L) hip abscess. On 07/05/18 she underwent surgery performed by Dr. Cruz. She went to [facility] [place] and is s/p conversion of (L) hip to prostalac spacer on 08/14/[address] Cornejo and is here under SWB rehabilitation status. Past Medical History: DMII, Disorder of gall bladder, hyperlipidemia, HTN, Obesity, abnormal hysterectomy, cholecystectomy, open carpal tunnel release, total knee replacement about 14 years ago. Social History/Home Situation: Pt lives alone in a mobile home. She has four steps to enter with (B) railings. She reports that her home set up is all on one floor. She has a walk in shower with a shower chair and is (I) with all ADLs/IADLs. Equipment owned/DME: Cane, shower chair, FWW, tray for walker SUBJECTIVE: Pt was sitting in chair when OT arrived. She is agreeable to OT session and reports that she is waiting to see Dr. Cruz to be discharged home today. OBJECTIVE: General Observation: Pleasant, answers questions appropriately Mental Status: A&Ox3 Pain: no c/o pain ROM: RUE WNL L UE WNL STRENGTH: RUE 5/5 throughout LUE 5/5 throughout BALANCE: Static sitting Normal Dynamic Sitting Normal DRESSING (I) UE, (I) LE dressing with adaptive equipment demonstrating with adherence to posterior hip precautions with street clothes. BATHING sitting on shower bench per pt report as this was performed with nursing (I) with adherence to posterior hip precautions. TOILETING (I) with FWW on toilet GROOMING (I) with FWW standing at sink and sitting in chair with hair and teeth. EATING (I) SPECIAL TESTS: Daily Activity Limitations Standardized Measure [facility] AM -PAC ?6 clicks? Daily Activity Inpatient Short Form: Raw score: 22 Standardized score: 47.10 CMS score: 25.80% [facility] modifier: CJ INFORMED CONSENT/EDUCATION: Pt instructed in purpose of OT Consult and plan of care. ASSESSMENT: Patient is a 73-year-old female referred to occupational therapy services with diagnosis of (L) hip abscess and was seen by Dr. Cruz on 07/03/18 and underwent surgery on 07/05/18. On 08/14/18 she was seen in [facility] and is s/p conversion of (L) hip to prostalac spacer performed by Dr. Cornejo in setting of DMII, Disorder of gall bladder, hyperlipidemia, HTN, Obesity, abnormal hysterectomy, cholecystectomy, open carpal tunnel release, total knee replacement about 14 years ago. Pt was seen for 3 OT sessions from 08/22/18-08/26/18 demonstrating verbal (I) in posterior hip precautions, increased (I) in functional mobility during ADLs/IADLs, (I) in LE dressing with adherence to posterior hip precautions and trained in energy conservation techniques in her home. OT recommends that pt return home with home health services, at this time pt has been able to perform ADLs with ideal technique and increased (I) in ADLs with hip precautions at this time. She has all DME. She is nervous about return home and being able to perform household cleaning. GOALS 1. Dressing: Pt will be able to perform LE dressing (I) with adherence to posterior hip precautions and PWB status in sitting position with FWW when pulling LE garments up. (MET) PLAN OF CARE/TREATMENT PLAN: Pt to be discharged home with home health services when medically cleared per MD DISCHARGE RECOMMENDATIONS: Home with home health services when medically cleared per MD. TREATMENT TIME/MINUTES/CODES [id number], 15 minutes (09:50) G Codes in the area of self- : washing oneself, toileting, dressing, eating and drinking, current status GO [id number] CJ projected status GO [id number]. Discharge status (if discharging) GO [id number]. Sanjuana Hernandez, OTR/L [facility]
--- NOTE | 2018-08-26 11:41 | OTDS_ITS ---
Date of service: 08/26/18 Time of Service: 09:50 Occupational Therapy Notes Occupational Therapy Inpatient Discharge Summary Dates of Service: 08/22/18-08/26/18 Date: 08/26/18 Referring Doctor:Kaylynn Mills NP OT Orders: s/p conversion of (L) hip to prostalac spacer on 08/14/18 at [facility], Dr. Cornejo. SWB Precautions: PWB, posterior hip precautions PATIENT PROFILE/ADMITTING DIAGNOSIS: Pt is a 73 year old female who was seen on 07/03/[address] rCuz for a (L) hip abscess. On 07/05/18 she underwent surgery performed by Dr. Cruz. She went to [facility] for surgery and is s/p conversion of (L) hip to prostalac spacer on 08/14/[address] Cornejo and is here under SWB rehabilitation status. Past Medical History: DMII, Disorder of gall bladder, hyperlipidemia, HTN, Obesity, abnormal hysterectomy, cholecystectomy, open carpal tunnel release, total knee replacement about 14 years ago. Social History/Home Situation: Pt lives alone in a mobile home. She has four steps to enter with (B) railings. She reports that her home set up is all on one floor. She has a walk in shower with a shower chair and is (I) with all ADLs/IADLs. Equipment owned/DME: Cane, shower chair, FWW, tray for walker SUBJECTIVE: Pt was sitting in chair when OT arrived. She is agreeable to OT session and reports that she is waiting to see Dr. Cruz to be discharged home today. OBJECTIVE: General Observation: Pleasant, answers questions appropriately Mental Status: A&Ox3 Pain: no c/o pain ROM: RUE WNL L UE WNL STRENGTH: RUE 5/5 throughout LUE 5/5 throughout BALANCE: Static sitting Normal Dynamic Sitting Normal DRESSING (I) UE, (I) LE dressing with adaptive equipment demonstrating with a dherence to posterior hip precautions with street clothes. BATHING sitting on shower bench per pt report as this was performed with nursing (I) with adherence to posterior hip precautions. TOILETING (I) with FWW on toilet GROOMING (I) with FWW standing at sink and sitting in chair with hair and teeth. EATING (I) SPECIAL TESTS: Daily Activity Limitations Standardized Measure [facility] AM -PAC ?6 clicks? Daily Activity Inpatient Short Form: Raw score: 22 Standardized score: 47.10 CMS score: 25.80% [facility] modifier: CJ INFORMED CONSENT/EDUCATION: Pt instructed in purpose of OT Consult and plan of care. ASSESSMENT: Patient is a 73-year-old female referred to occupational therapy services with diagnosis of (L) hip abscess and was seen by Dr. Cruz on 07/03/18 and underwent surgery on 07/05/18. On 08/14/18 she was seen in [facility] [place] and is s/p conversion of (L) hip to prostalac spacer performed by Dr. Cornejo in setting of DMII, Disorder of gall bladder, hyperlipidemia, HTN, Obesity, abnormal hysterectomy, cholecystectomy, open carpal tunnel release, total knee replacement about 14 years ago. Pt was seen for 3 OT sessions from 08/22/18- 08/26/18 demonstrating verbal (I) in posterior hip precautions, increased (I) in functional mobility during ADLs/IADLs, (I) in LE dressing with adherence to posterior hip precautions and trained in energy conservation techniques in her home. OT recommends that pt return home with home health services, at this time pt has been able to perform ADLs with ideal technique and increased (I) in ADLs with hip precautions at this time. She has all DME. She is nervous about return home and being able to perform household cleaning. GOALS 1. Dressing: Pt will be able to perform LE dressing (I) with adherence to posterior hip precautions and PWB status in sitting position with FWW when pulling LE garments up. (MET) PLAN OF CARE/TREATMENT PLAN: Pt to be discharged home with home health services when medically cleared per MD DISCHARGE RECOMMENDATIONS: Home with home health services when medically cleared per MD. TREATMENT TIME/MINUTES/CODES [id number], 15 minutes (09:50) G Codes in the area of self- : washing oneself, toileting, dressing, eating and drinking, current status GO [id number] CJ projected status GO [id number]. Discharge status (if discharging) GO [id number]. Sanjuana Hernandez, OTR/L [facility]
--- NOTE | 2018-08-26 11:52 | PDOC.CMDIS ---
LACE Index Scoring Tool - Questions: Length of Stay (in days): 4 - 6 Acuity (Admit via E.D.?): No Comorbidities: Diabetes w/o Complication E.D. Visits: 1 - Answers: Total Score: 6 Risk of Readmission: Low Risk Care Management Discharge Reason for Hospitalization: S/P Left Hip Spacer Placement Discharge Plan: Dena will return home when ready per MD. She will follow up with her PCP, [facility] surgeon and plan of care as prescribed, she will have new orders for VNA supports including RN/PT/OT. Dena will also follow up with Wen Carmona at [facility], have MOW and options counseling and connect with Negrito SILVA coordinator for Medicare naviagation. She will transport via private vehicle with her friend. Patient/Family Education Needs: Review of community based supports, Swingbed contract, insurance limitations, discussion of self care needs upon discharge; Ask Me Three. Services Needed at Discharge: Home Delivered Meals ([facility]), Home Health Care Services (Case Management, SHIP and options through [facility], RN/PT/OT through [facility] )
--- NOTE | 2018-08-26 14:13 | CHAPLAIN ---
Dena told me she will be calling her friend Tania for a ride home today when she is discharged. She is waiting for Dr. Cruz to take out her jose. She said her friend/neighbor Roberto (from [employer]) has been shoveling her walk and people from her temple have offered to help as well. Dena is a member of the [facility] [employer], and her aniline press worker, Rev. Kolby Johnson has been in to visit her.
--- NOTE | 2018-08-26 14:50 | DSE_ITS ---
Addendum entered and electronically signed by Kaylynn Mills NP 08/26/18 15:23: Take Coumadin 2.5mg at night, Home health will check your INR on 08/28/18, results to PCP. Goal INR 2 (per [facility] Original Note: Date of service: 08/26/18 Time of Service: 14:48 DS: Diagnosis Discharge Diagnosis (1) Pyogenic arthritis: Status: Acute (2) Anemia: Status: Chronic (3) Gastroesophageal reflux disease with esophagitis: Status: Acute (4) Essential hypertension: Status: Chronic (5) Diabetes mellitus type 2 in obese: Status: Chronic (6) DVT prophylaxis: Status: Acute Discharge Plan Disposition Patient Disposition: HOME W/HOME HEALTH SERVICE Condition: Improving Discharge Details Reason For Visit: S/P L HIP SPACER PLACEMENT Admit Date/Time: 08/21/18 14:04 Admit Provider: Bridgett Ge Attending Provider: Bridgett Ge [facility] Hospital Course: Dena Madrigal is a 73 year old female with past medical history significant for type 2 diabetes, HTN, GERD, hyperlipidemia, and obesity, who was recently treated here at [facility] for a left hip infection by Dr. Cruz. She had continued pain. Dr. Cruz obtained cultures from the site which grew Pseudomonas. Follow up MRI on 08/08/18 revealed: Marked interval worsening of septic arthritis and surrounding myositis. The size of the abscesses have decreased in size. There is now marked abnormal enhancement within the superior acetabulum and proximal femur consistent with osteomyelitis. Collapse of the left femoral head is also seen. She was referred to Dr. Cornejo at [facility] and was admitted to swing bed status on 08/21/17 for rehab status post conversion of Left hip to prostalac spacer 08/14/18. She experienced postoperative anemia due to blood loss. She is currently completing a course of Levofloxacin 750 mg daily to be completed on 08/26/18. She is on Coumadin for DVT prophylaxis until 09/13/18. She has follow up scheduled with Ortho at [facility] on 09/23/18. She worked with PT and progressed well. She completed her course of antibiotics. She remains on coumadin for DVT prophylaxis. Her INR was 1.9 on the day of discharge, she received additional Coumadin. Her INR will be followed by Home health. She had postoperative anemia and will have hemoglobin and hematocrit followed as an outpatient. She was seen by Dr. Cruz, who was impressed with her progress. He removed her jose on the day of discharge. Her diabetes was well managed while she was hospitalized. Her blood pressure medications have been on hold while she has been hospitalized. She will remain off Cozaar until she follows up with her PCP. She will resume HCTZ. Home health will monitor her blood pressures and notify her PCP if they are elevated. She will follow up with Dr. Cornejo at [facility] as scheduled on 09/23/18. She will remain on Coumadin for DVT prophylaxis until 09/13 per [facility] discharge summary. Home Meds and New Rx's Prescriptions: Continued Januvia 50 mg tablet 50 mg PO DAILY Qty: 90 RF: 3 FreeStyle Test 1 EACH strip 1 ea Miscellaneous DAILY Qty: 100 RF: 4 lancets [FreeStyle Lancets] 1 EACH misc 1 ea Miscellaneous DAILY Qty: 50 RF: 12 atorvastatin [Lipitor] 10 MG tablet 10 mg PO DAILY Qty: 90 RF: 4 levofloxacin 750 mg tablet 750 mg PO DAILY RF: 0 acetaminophen 500 mg capsule 500 mg PO .q8 PRNRF: 0 naproxen 500 mg tablet 500 mg PO BID RF: 0 omeprazole 20 mg capsule,delayed release(DR/EC) 20 mg PO DAILY RF: 0 oxycodone 5 mg tablet 5 mg PO Q4H PRNRF: 0 warfarin 5 mg tablet 5 mg PO DAILY RF: 0 polyethylene glycol 3350 17 gram/dose powder 17 gm PO BID PRNRF: 0 senna-docusate sodium tablet 2 tab PO BID PRNRF: 0 hydrochlorothiazide 25 mg tablet 25 mg PO DAILY RF: 0 losartan 50 mg tablet 50 mg PO DAILY RF: 0 magnesium oxide [MagOx] 400 mg (241.3 mg magnesium) tablet 400 mg PO DAILY RF: 0 nystatin 100,000 unit/gram Powder 1 g Topical TID Qty: 60 RF: 0 acidophilus-pectin, citrus 25 million cell -100 mg Tablet 1 cap PO BID Qty: 60 RF: 0 Discontinued acetaminophen [Tylenol] 325 mg Tablet 650 mg PO Q6H PRN PRNQty: 0 RF: 0 Discharge Instructions Instructions: Safe Use of Anticoagulants (DC), Total Hip Replacement (GEN) Additional Instructions: Resume your HCTZ in the morning. Hold off on restarting your Cozaar until your PCP directs you to do so. Home health will monitor your blood pressure and home PT will work with you. Follow up with [facility] and PCP as scheduled. Take care! Stand Alone Forms: Nursing Discharge Form Activity:: As directed by [facility] Orthopedics Equipment/Supplies:: No Equipment Needed Diet:: Carb Counting Discharge Orders Discharge Orders: Discharge Order (Routine); Ordered 08/26/18 Ordered By: Kaylynn Mills Other Ambulatory Orders: Hemoglobin/Hematocrit (Routine) Timeframe: 2 Days Location: Determined by Patient Ordered By: Kaylynn Mills Prothrombin Time (Routine) Timeframe: 2 Days Location: Determined by Patient Ordered By: Kaylynn Mills Exam Narrative Exam Narrative: General: appears younger than stated age, sitting up in chair with legs elevated, in NAD. HEENT: normocephalic, atraumatic, mucous membranes moist. Neck: supple, no JVD. Cardiovascular: regular rate and rhythm, no murmur appreciated. Lungs: Respirations even and unlabored, clear to auscultation throughout. GI: abdomen soft, nontender, nondistended, with normoacitve bowel sounds. Extremities: L hip incision with dressing clean, dry and intact, no erythema, no drainage. BLEs well perfused with +1 edema bilaterally. Peripheral pulses palpable. DS: Data Vitals/I&O Vitals and I&O: Vital Signs Temperature 36.9 C 08/26/18 07:40 Temperature Source Tympanic 08/26/18 07:40 Pulse 78 08/26/18 07:40 Pulse Rhythm Regular 08/26/18 08:15 Respiratory Rate 18 08/26/18 07:40 Respiratory Effort 08/26/18 08:15 Respiratory Depth Normal 08/26/18 08:15 Respiratory Pattern Normal 08/26/18 08:15 Blood Pressure 131/69 08/26/18 07:40 Pulse Oximetry 98 08/26/18 07:40 Oxygen Delivery Method Room Air 08/26/18 07:40 Oxygen Flow Rate 0 08/26/18 07:40 Pain Level 0 08/26/18 07:40 Intake & Output 08/25/18 08/26/18 08/26/18 23:59 11:59 23:59 Intake Total 600 / 1120 240 / 440 200 / 440 Balance 600 / 720 240 / 440 200 / 440 Intake: Oral 600 / 1120 240 / 440 200 / 440 Other: Urine Color Yellow Yellow Urine Appearance Clear Clear Voiding Methods Toilet Toilet Labs on day of discharge: Labs from last 24 hours 08/26/18 06:58 PT 19.0 H INR 1.9 H PFSH Medical History 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
--- NOTE | 2018-08-26 15:18 | PDOC.HHF2F ---
1. Encounter Date and Reason I certify that CRISIPN RIZVI was seen by Kaylynn Mills on 08/26/18 and that I had a [id number] encounter with this patient that meets the physician face to face encounter requirements. 2. Clinical Findings Supporting Skilled Need and Homebound Status I certify that home health services are medically necessary, include either intermittent assisted and/or physical/speech therapy, and that this patient is homebound in that absences from the home require considerable and taxing effort and are infrequent or of short duration, or are attributable to the need to receive medical care. [X] (a) Attached documentation from encounter provides clinical findings supporting skilled need and homebound status (including what assistance patient requires to leave the home). The encounter with the patient was in whole, or in part, for the following medical condition, which is the primary reason for home health care: S/P L HIP SPACER PLACEMENT Halfway: Needed to monitor blood pressure, monitor wound, continue current dressing orders (per [facility] ortho). Assist with medication management. Draw hemoglobin and hct on 08/28/18- results to PCP. Physical Therapy: Needed to continue to work on strength, conditioning and endurance. Draw INR on 08/28/18- results to PCP. OT: needed for evaluation/assess needs at home. Speech Therapy: Homebound: Unable to leave home without assistance. 3. Certification and Authentication I certify that I composed the above information based on my clinical judgement relating to this patient's medical condition and, if applicable, clinical findings communicated to me by the NPP or inpatient physician who performed the Home Health Referral. All further orders will be obtained through _PCP: Shilpi Roman (Dr. Madera in same office) (Community Based Physician - PCP)
--- NOTE | 2018-08-26 15:22 | HHF2F_ITS ---
1. Encounter Date and Reason I certify that CRISPIN RIZVI was seen by Kaylynn Mills on 08/26/18 and that I had a [id number] encounter with this patient that meets the physician face to face encounter requirements. 2. Clinical Findings Supporting Skilled Need and Homebound Status I certify that home health services are medically necessary, include either intermittent prison and/or physical/speech therapy, and that this patient is homebound in that absences from the home require considerable and taxing effort and are infrequent or of short duration, or are attributable to the need to receive medical care. [X] (a) Attached documentation from encounter provides clinical findings supporting skilled need and homebound status (including what assistance patient requires to leave the home). The encounter with the patient was in whole, or in part, for the following medical condition, which is the primary reason for home health care: S/P L HIP SPACER PLACEMENT Long-Term: Needed to monitor blood pressure, monitor wound, continue current dressing orders (per [facility] ortho). Assist with medication management. Draw hemoglobin and hct on 08/28/18- results to PCP. Physical Therapy: Needed to continue to work on strength, conditioning and endurance. Draw INR on 08/28/18- results to PCP. OT: needed for evaluation/assess needs at home. Speech Therapy: Homebound: Unable to leave home without assistance. 3. Certification and Authentication I certify that I composed the above information based on my clinical judgement relating to this patient's medical condition and, if applicable, clinical findings communicated to me by the NPP or inpatient physician who performed the Home Health Referral. All further orders will be obtained through _PCP: Shilpi Roman (Dr. Madera in same office) (Community Based Physician - PCP)
--- NOTE | 2018-08-26 16:18 | CMDISCH_ITS ---
LACE Index Scoring Tool - Questions: Length of Stay (in days): 4 - 6 Acuity (Admit via E.D.?): No Comorbidities: Diabetes w/o Complication E.D. Visits: 1 - Answers: Total Score: 6 Risk of Readmission: Low Risk Care Management Discharge Reason for Hospitalization: S/P Left Hip Spacer Placement Discharge Plan: Dena will return home when ready per MD. She will follow up with her PCP, [facility] surgeon and plan of care as prescribed, she will have new orders for VNA supports including RN/PT/OT. Dena will also follow up with Wen Carmona at [facility], have MOW and options counseling and connect with Negrito SILVA coordinator for Medicare naviagation. She will transport via private vehicle with her friend. Patient/Family Education Needs: Review of community based supports, Swingbed contract, insurance limitations, discussion of self care needs upon discharge; Ask Me Three. Services Needed at Discharge: Home Delivered Meals ([facility]), Home Health Care Services (Case Management, SHIP and options through [facility], RN/PT/OT through [facility] )
== END 2018-08-26 16:10 | disposition home health service (06) | DRG 560 ==
PROVIDERS: Nurse Practitioner; Admitting Provider Internal Medicine; PCP Nurse Practitioner; Visit Provider Internal Medicine
DX: Z47.89 Encounter for other orthopedic aftercare (principal); M00.852 Arthritis due to other bacteria, left hip; Z68.42 Body mass index [BMI] 45.0-49.9, adult; Z98.890 Other specified postprocedural states; B96.5 Pseudomonas (aeruginosa) (mallei) (pseudomallei) as the cause of diseases classified elsewhere; E11.9 Type 2 diabetes mellitus without complications; I10 Essential (primary) hypertension; K21.9 Gastro-esophageal reflux disease without esophagitis; E78.5 Hyperlipidemia, unspecified; E66.9 Obesity, unspecified; Z79.2 Long term (current) use of antibiotics
CPT/HCPCS: 36415; 80048; 85027; 97110; 97162; 97165; 97530; 97535; 99239; 99305; 99316; NC; 85610; J3490

== ENCOUNTER 2018-12-04 11:01 | Outpatient (CLI) | payer OTHER, MEDICARE, SELFPAY ==
--- NOTE | 2018-12-04 10:55 | DI.RAD_ITS ---
SYMPTOMS/DIAGNOSIS: LEFT SHOULDER PAIN; RIGHT KNEE PAIN LEFT SHOULDER: Three views. Mild degenerative changes are seen at the acromioclavicular joint. The glenohumeral joint appears well maintained. The bones are intact and normally mineralized. The soft tissues are unremarkable. IMPRESSION: Mild degenerative changes of the left AC joint. RIGHT KNEE: Three views. There are osteophytes involving all three joint compartments. There is mild narrowing of the medial femorotibial joint space. The soft tissues are unremarkable. IMPRESSION: Mild to moderate degenerative changes of the right knee.
== END 2018-12-04 11:21 ==
PROVIDERS: PCP Nurse Practitioner; Visit Provider Physician Assistant
DX: M25.561 Pain in right knee (principal); M25.512 Pain in left shoulder; M19.012 Primary osteoarthritis, left shoulder; M17.11 Unilateral primary osteoarthritis, right knee
CPT/HCPCS: 73562; 73030

== ENCOUNTER 2018-12-16 02:11 | Outpatient (CLI) | payer OTHER, MEDICARE, SELFPAY ==
[2018-12-16 08:44] LABS: HCT 36.4 % (36.0-46.0); HGB 11.2 g/dL (12.0-15.5); Mean Corp. HGB Concentration 30.8 g/dL (32.0-36.0); Mean Corpuscular Volume 87.7 fL (80-95); Mean Platelet Volume 8.9 fL (8.0-11.0); Platelet Count 314 x1000/uL (130-400); RBC 4.15 m/cumm (4.00-5.20); RBC Distribution Width 16.1 % (11.7-14.6); White Blood Cell Count 7.64 k/cumm (4.4-10.8)
[2018-12-16 09:42] LABS: ALT 20 U/L (12-78); AST 14 U/L (15-37); Albumin 3.5 g/dL (3.4-5.0); Alkaline Phosphatase 114 U/L (46-116); Anion Gap 11.9 mmol/L (3-11); BUN 31 mg/dL (7-18); Bilirubin, Total 0.5 mg/dL (0.2-1.0); CO2 26.1 mmol/L (21.0-32.0); CREATININE 1.22 mg/dL (0.55-1.02); Calcium 9.1 mg/dL (8.5-10.1); Chloride 104 mmol/L (98-107); Cholesterol 185 mg/dL (50-200); Glucose 131 mg/dL (70-100); HDL Cholesterol 46 mg/dL (40-60); LDL CHOLESTEROL 111 mg/dL (<100); Potassium 3.8 mmol/L (3.5-5.1); Sodium 142 mmol/L (136-145); Triglyceride 124 mg/dL (30-150)
--- NOTE | 2018-12-16 10:05 | DI.MAMMO_ITS ---
SYMPTOM/DIAGNOSIS: SCREENING, Z12.31 MAMMOGRAMS: Mammograms were interpreted according to the usual protocol including computer analysis with CAD system, tomosynthesis and C view imaging. Comparison is made with exams from [id number]. The breasts are composed of heterogeneously dense fibroglandular tissue, breast density, Category C. There are scattered benign appearing calcifications bilaterally. No suspicious masses or microcalcifications are seen. There has been no significant change. IMPRESSION: Category 2, negative mammogram with benign findings. Yearly screening mammography is recommended. SA ASSESSMENT OF FINDINGS: Negative with benign findings. Category 2. Patient will receive a letter notifying them of these results. Bi-RADS category C. The breasts are heterogeneously dense, which may obscure small masses.
== END 2018-12-16 02:31 ==
PROVIDERS: PCP Nurse Practitioner; Visit Provider Obstetrics & Gynecology Gynecology
DX: E11.69 Type 2 diabetes mellitus with other specified complication (principal); E66.9 Obesity, unspecified; E78.5 Hyperlipidemia, unspecified; I10 Essential (primary) hypertension; J45.20 Mild intermittent asthma, uncomplicated; Z12.31 Encounter for screening mammogram for malignant neoplasm of breast
CPT/HCPCS: 36415; 77063; 77067; 80053; 80061; 83721; 85027

== ENCOUNTER → 2019-02-05 13:26 | Outpatient (BNVA) | payer MEDICARE, SELFPAY | PROVIDERS: PCP Nurse Practitioner; Referring Provider Nurse Practitioner; Visit Provider Student in an Organized Health Care Education/Training Program | DX: M25.552 Pain in left hip (principal); R20.8 Other disturbances of skin sensation; E11.9 Type 2 diabetes mellitus without complications; I10 Essential (primary) hypertension; M25.559 Pain in unspecified hip | CPT/HCPCS: 99214 ==

== ENCOUNTER 2019-02-05 15:18 | Outpatient (CLI) | payer MEDICARE, OTHER, SELFPAY ==
--- NOTE | 2019-02-05 13:45 | DI.RAD_ITS ---
SYMPTOMS/DIAGNOSIS: NEW LET HIP PAIN S/P TOTAL HIP ARTHROPLASTY LEFT HIP: Two views were obtained and show left total hip joint replacement in position. Components appear well seated. Note is again made of degenerative changes of the SI joints and right hip. No other significant abnormality seen.
== END 2019-02-05 15:38 ==
PROVIDERS: PCP Nurse Practitioner; Visit Provider Student in an Organized Health Care Education/Training Program
DX: M25.552 Pain in left hip (principal); Z96.642 Presence of left artificial hip joint; M16.11 Unilateral primary osteoarthritis, right hip; M53.3 Sacrococcygeal disorders, not elsewhere classified; R20.8 Other disturbances of skin sensation; E11.9 Type 2 diabetes mellitus without complications; I10 Essential (primary) hypertension
CPT/HCPCS: 99214; 73502

== ENCOUNTER → 2019-03-05 12:54 | Outpatient (BNVA) | payer MEDICARE, OTHER, SELFPAY | PROVIDERS: PCP Nurse Practitioner; Referring Provider Nurse Practitioner; Visit Provider Student in an Organized Health Care Education/Training Program | DX: M25.561 Pain in right knee (principal); M25.512 Pain in left shoulder; M17.11 Unilateral primary osteoarthritis, right knee; Z98.890 Other specified postprocedural states; E11.9 Type 2 diabetes mellitus without complications; I10 Essential (primary) hypertension | CPT/HCPCS: 99213 ==

== ENCOUNTER 2019-05-23 01:24 | Outpatient (CLI) | payer MEDICARE, SELFPAY ==
[2019-05-23 09:03] LABS: Hemoglobin A1C 6.2 % (4.5-6.2)
[2019-05-23 09:16] LABS: ALT 22 U/L (14-59); AST 14 U/L (15-37); Albumin 3.4 g/dL (3.4-5.0); Alkaline Phosphatase 96 U/L (46-116); Anion Gap 10.1 mmol/L (3-11); BUN 19 mg/dL (7-18); CO2 26.9 mmol/L (21.0-32.0); CREATININE 1.21 mg/dL (0.55-1.02); Calculated LDL 98 mg/dL; Chloride 105 mmol/L (98-107); Cholesterol 175 mg/dL (50-200); Glucose 136 mg/dL (70-100); HDL Cholesterol 43 mg/dL (40-60); Magnesium 1.5 mg/dL (1.8-2.4); Potassium 3.8 mmol/L (3.5-5.1); Sodium 142 mmol/L (136-145); Total Protein 6.9 g/dL (6.4-8.2); Triglyceride 170 mg/dL (30-150)
[2019-05-23 09:30] LABS: Bilirubin, Total 0.6 mg/dL (0.2-1.0)
== END 2019-05-23 01:44 ==
PROVIDERS: PCP Nurse Practitioner; Visit Provider Nurse Practitioner
DX: E11.69 Type 2 diabetes mellitus with other specified complication (principal); E66.01 Morbid (severe) obesity due to excess calories; E78.5 Hyperlipidemia, unspecified; E83.42 Hypomagnesemia; I10 Essential (primary) hypertension; E11.9 Type 2 diabetes mellitus without complications
CPT/HCPCS: 36415; 80053; 80061; 83036; 83735

== ENCOUNTER 2019-10-06 13:20 | Outpatient (CLI) | payer MEDICARE, OTHER, SELFPAY ==
--- NOTE | 2019-10-06 13:10 | DI.RAD_ITS ---
EXAM: XR HIP LT AP LAT ONLY CLINICAL HISTORY: annual f/u. TECHNIQUE: 2D digital imaging was performed. COMPARISON: XR hip LT AP lat only from 02/05/2019 FINDINGS: BONES: No acute fracture is present. No bony destructive lesion is seen. JOINTS: No dislocation present. Stable postsurgical changes of a left total hip replacement are prese nt. SOFT TISSUE: Normal. IMPRESSION: Stable left THR. DATA REPOSITORY: RADIATION DOSE DELIVERED:
== END 2019-10-06 13:40 ==
PROVIDERS: PCP Nurse Practitioner; Referring Provider Nurse Practitioner; Visit Provider Student in an Organized Health Care Education/Training Program
DX: Z96.642 Presence of left artificial hip joint (principal); Z47.1 Aftercare following joint replacement surgery
CPT/HCPCS: 99213; 73502

== ENCOUNTER 2020-01-08 01:23 | Outpatient (CLI) | payer MEDICARE, SELFPAY ==
--- NOTE | 2020-01-08 12:22 | DI.MAMMO_ITS ---
EXAM: MG MAMMO SCREENING CLINICAL HISTORY: screening,Z12.39 TECHNIQUE: Bilateral full field digital CC and MLO mammographic images were obtained with 3D tomosyn thesis and utilizing computer aided detection (CAD). COMPARISON: Available for comparison. FINDINGS: Masses/Architectural Distortion: None seen. Microcalcifications: New collections of calcifications in the posterior central right breast. Skin Thickening/Nipple Retraction: None. IMPRESSION: 1. New collections of calcification in the posterior central right breast. 2. Spot magnification views are requested for further evaluation. BI-RADS Category 0 - Assessment Incomplete: Need additional imaging evaluation Breast Density - Category C - Heterogeneously dense The mammogram demonstrates the patient's breast tissue is dense. Dense breast tissue is very common a nd is not abnormal but dense breast tissue can make it harder to find cancer on a mammogram. Also, de nse breast tissue may increase their breast cancer risk. This information about the result of the [facility] mogram report was provided to the patient to raise their awareness. Use this report when you speak wi th the patient about their risks for breast cancer, which includes their family history. At that time , you may recommend for more screening tests (Ultrasound or MRI) as they might be useful based on the ir risk. A negative radiographic report should not delay biopsy if a dominant or clinically suspicious mass is present. Up to ten percent of cancers are not identified on mammography. A negative report may reinforce clinical impression. Adenosis and dense breasts may obscure an underlying neoplasm. False positive reports average 6 to 10%. Patient will receive a letter notifying them of these results.
== END 2020-01-08 01:43 ==
PROVIDERS: PCP Nurse Practitioner; Visit Provider Nurse Practitioner
DX: Z12.31 Encounter for screening mammogram for malignant neoplasm of breast (principal); R92.8 Other abnormal and inconclusive findings on diagnostic imaging of breast
CPT/HCPCS: 77063; 77067

== ENCOUNTER 2020-01-14 02:41 | Outpatient (CLI) | payer MEDICARE, SELFPAY ==
--- NOTE | 2020-01-14 | DI.MAMMO_ITS ---
EXAM: MG MAMMO SCREEN CALL BACK UNI CLINICAL HISTORY: F/U MAMMO, NEW COLLECTION OF CALCIFICATIONS POSTERIOR CENTRAL RT BREAST TECHNIQUE: Spot compression magnification cc and MLO views were performed of the right breast. COMPARISON: 2009 through 2018 and 03 January 2020. FINDINGS: New calcifications were questioned in the posterior central right breast on the recent exam. These calcifications project in the scan, within slightly raised skin lesions. Similar findings are seen in the contralateral breast. Scattered benign calcifications are again noted throughout both br easts. No suspicious calcifications are seen. IMPRESSION: 1. Skin calcifications with no specific features of malignancy noted. 2. Unless there is more urgent need, screening mammography is recommended, as per [employer] guidelines. BI-RADS Category 2 - Benign Findings Breast Density - Category C - Heterogeneously dense The mammogram demonstrates the patient's breast tissue is dense. Dense breast tissue is very common a nd is not abnormal but dense breast tissue can make it harder to find cancer on a mammogram. Also, de nse breast tissue may increase their breast cancer risk. This information about the result of the [facility] mogram report was provided to the patient to raise their awareness. Use this report when you speak wi th the patient about their risks for breast cancer, which includes their family history. At that time , you may recommend for more screening tests (Ultrasound or MRI) as they might be useful based on the ir risk. A negative radiographic report should not delay biopsy if a dominant or clinically suspicious mass is present. Up to ten percent of cancers are not identified on mammography. A negative report may reinforce clinical impression. Adenosis and dense breasts may obscure an underlying neoplasm. False positive reports average 6 to 10%. Patient will receive a letter notifying them of these results.
== END 2020-01-14 03:01 ==
PROVIDERS: PCP Nurse Practitioner; Visit Provider Nurse Practitioner
DX: Z12.31 Encounter for screening mammogram for malignant neoplasm of breast (principal); R92.8 Other abnormal and inconclusive findings on diagnostic imaging of breast; N64.59 Other signs and symptoms in breast; R92.1 Mammographic calcification found on diagnostic imaging of breast
CPT/HCPCS: 77063; 77067

== ENCOUNTER 2020-05-18 01:18 | Outpatient (CLI) | payer MEDICARE, SELFPAY ==
[2020-05-18 10:02] LABS: Anion Gap 10.3 mmol/L (3-11); BUN 23 mg/dL (7-18); CO2 27.7 mmol/L (21.0-32.0); CREATININE 1.35 mg/dL (0.55-1.02); Calcium 9.2 mg/dL (8.5-10.1); Chloride 103 mmol/L (98-107); Estimated GFR 38.23 (mL/min/1.73m2); Glucose 136 mg/dL (74-106); Magnesium 1.9 mg/dL (1.8-2.4); Potassium 4.1 mmol/L (3.5-5.1); Sodium 141 mmol/L (136-145)
== END 2020-05-18 01:38 ==
PROVIDERS: PCP Nurse Practitioner; Visit Provider Nurse Practitioner
DX: E66.01 Morbid (severe) obesity due to excess calories (principal); E83.42 Hypomagnesemia; E11.69 Type 2 diabetes mellitus with other specified complication
CPT/HCPCS: 36415; 80048; 83735

== ENCOUNTER → 2020-05-27 10:38 | Outpatient (BNVA) | payer MEDICARE, SELFPAY | PROVIDERS: PCP Nurse Practitioner; Referring Provider Nurse Practitioner; Visit Provider Student in an Organized Health Care Education/Training Program | DX: M16.11 Unilateral primary osteoarthritis, right hip (principal); Z96.642 Presence of left artificial hip joint; E11.9 Type 2 diabetes mellitus without complications; I10 Essential (primary) hypertension | CPT/HCPCS: 99214 ==

== ENCOUNTER 2020-06-03 00:36 | Outpatient (CLI) | payer MEDICARE, SELFPAY ==
--- NOTE | 2020-06-03 07:30 | DI.RAD_ITS ---
EXAM: RF JOINT INJECTION FLUORO GUID CLINICAL HISTORY: R HIP INJ UNDER FLUORO,RT HIP PAIN,M25.551 TECHNIQUE: 2D and realtime digital imaging was performed. CONTRAST MATERIAL: Water soluble contrast was administered. COMPARISON: No exams were available for comparison FINDINGS: Fluoroscopy was provided for Dr. Cruz during the performance of a right hip injection. Please r efer to the procedure report for complete details. Fluoro time: 3 seconds
[2020-06-03] MEDS: Omnipaque 300 MG/ML 10 ML BTL IJ (14:16)
[2020-06-03] MEDS: Bupivacaine 0.5% Pres-Free 10 ML VIAL IJ (14:17)
[2020-06-03] MEDS: methylPREDNISolone ACETATE 80 MG/ML VIAL IM (14:17)
--- NOTE | 2020-06-03 15:15 | W.PROCNOTE ---
Date of service: 06/03/20 Time of Service: 14:03 Procedure Note Date of procedure: 06/03/20 Procedure: Right Hip Injection with Fluoroscopic Guidance Surgeon/Proceduralist/Physician: Tadeo Cruz Procedure Diagnosis: Right Hip Osteoarthritis Procedure Indications: Dena has had pain of the RIGHT hip and groin. To serve as both diagnostic and therapeutic, an injection under fluoroscopy was recommended. I had discussed the risks of the procedure and the patient elected to proceed. Procedure Description: Dena was greeted in the flouroscopy room. The correct side was identified and the consent was reviewed with the patient and signed. The patient was then placed in the supine position on the fluoroscopy table. The RIGHT hip was then prepped with Chloraprep. The anterolateral injection starting point was identiifed by bony landmarks and fluoroscopy. The skin and soft tissue in the tract of the injection was anesthetized with 1% Lidocaine. A spinal needle was then inserted deep into the hip joint at the level of the lateral femoral neck under fluoroscopic guidance. A small amount of Omnipaque solution was injected to confirm intraarticular placement. Once confirmed, the hip was injected with 6cc of 0.5% Bupivicaine and 80mg of Depo-Medrol. A bandaid was placed on the injection site. The patient tolerated the procedure well and noted improvement in pre-injection pain.
== END 2020-06-03 00:56 ==
PROVIDERS: PCP Nurse Practitioner; Visit Provider Student in an Organized Health Care Education/Training Program
DX: M25.551 Pain in right hip (principal); R10.31 Right lower quadrant pain; M16.11 Unilateral primary osteoarthritis, right hip
CPT/HCPCS: 20610; 77002; J1040

== ENCOUNTER → 2020-06-21 14:46 | Outpatient (BNVA) | payer MEDICARE, MEDICAID, SELFPAY | PROVIDERS: PCP Nurse Practitioner; Visit Provider Student in an Organized Health Care Education/Training Program | DX: M16.11 Unilateral primary osteoarthritis, right hip (principal); I10 Essential (primary) hypertension; Z98.890 Other specified postprocedural states | CPT/HCPCS: 99211; 99213 ==

== ENCOUNTER 2021-02-03 02:56 | Outpatient (CLI) | payer MEDICARE, SELFPAY ==
[2021-02-03 08:50] LABS: HCT 37.7 % (36.0-46.0); MCH 29.3 pg (27.0-33.0); MCHC 31.8 % (32.0-36.0); MCV 92.2 fL (80-95); MPV 8.9 fL (8.0-11.0); Platelet Count 281 10^3/uL (130-400); RBC 4.09 10^6/uL (3.93-5.22); RDW-SD 47.6 fL; WBC 6.95 10^3/uL (4.4-10.8)
[2021-02-03 09:30] LABS: Hemoglobin A1C 6.9 % (<5.7)
[2021-02-03 11:10] LABS: ALT 26 U/L (14-59); AST 14 U/L (15-37); Albumin 3.4 g/dL (3.4-5.0); Alkaline Phosphatase 107 U/L (46-116); Anion Gap 11.2 mmol/L (3-11); BUN 33 mg/dL (7-18); Bilirubin, Total 0.5 mg/dL (0.2-1.0); CO2 26.8 mmol/L (21.0-32.0); CREATININE 1.4 mg/dL (0.55-1.02); Calcium 8.9 mg/dL (8.5-10.1); Calculated LDL 97 mg/dL (<100); Chloride 104 mmol/L (98-107); Cholesterol 166 mg/dL (<200); Estimated GFR 36.66 (mL/min/1.73m2); Glucose 130 mg/dL (74-106); HDL Cholesterol 43 mg/dL (40-60); Sodium 142 mmol/L (136-145); Total Protein 6.9 g/dL (6.4-8.2); Triglyceride 130 mg/dL (<150)
== END 2021-02-03 02:57 | disposition home or self-care (01) ==
LOC: LBO 02:56
PROVIDERS: PCP Nurse Practitioner; Visit Provider Nurse Practitioner
DX: E11.69 Type 2 diabetes mellitus with other specified complication (principal); E78.5 Hyperlipidemia, unspecified; I10 Essential (primary) hypertension; E66.01 Morbid (severe) obesity due to excess calories; J45.20 Mild intermittent asthma, uncomplicated
CPT/HCPCS: 36415; 80053; 80061; 85027; 83036

== ENCOUNTER → 2021-02-21 13:00 | Outpatient (BNVA) | payer MEDICARE, SELFPAY | PROVIDERS: PCP Nurse Practitioner; Referring Provider Nurse Practitioner; Visit Provider Student in an Organized Health Care Education/Training Program | DX: M17.11 Unilateral primary osteoarthritis, right knee (principal) | CPT/HCPCS: 20610; J1040 ==

== ENCOUNTER 2021-02-28 00:51 | Outpatient (CLI) | payer MEDICARE, SELFPAY ==
--- NOTE | 2021-02-28 08:15 | DI.MAMMO_ITS ---
Exam(s) MAMMO SCREENING EXAM: MAMMO SCREENING CLINICAL HISTORY: screening,Z12.39. TECHNIQUE: Bilateral full field digital CC and MLO mammographic images were obtained with 3D tomosyn thesis and utilizing computer aided detection (CAD). COMPARISON: Prior mammograms dating back to 2011, the most recent being December 2019. FINDINGS: There are no new obvious spiculated masses. Asymmetric nodular density retroareolar region both henry sts are unchanged from prior studies. Numerous microcalcifications are again noted in both breasts, mostly unchanged However, there is a new concerning group of microcalcifications posteriorly in the left breast locate d 11-12 cm in from the nipple which require spot Mag views. There is no significant architectural distortion nor skin thickening-retraction. IMPRESSION: Concerning new group of microcalcifications posteriorly in left breast. Spot magnification views rec ommended. BI-RADS Category 0 - Assessment Incomplete: Need additional imaging evaluation Breast Density - Category C - Heterogeneously dense Breast density Category C or D implies that the patient has dense breast tissue. Dense breast tissue can make it harder to find cancer on a mammogram. Dense breast tissue is also associated with an incr eased risk of breast cancer. This information about the result of the mammogram report was provided to the patient to raise their awareness. Use this report when you speak with the patient about their risks for breast cancer, which includes their family history. At that time, you may recommend additional screening tests (Ultrasoun d or MRI) as these tests may add significant information. A negative radiographic report should not delay biopsy if a dominant or clinically suspicious mass is present. Up to ten percent of cancers are not identified on mammography. A negative report may reinforce clinical impression. Adenosis and dense breasts may obscure an underlying neoplasm. False positive reports average 6 to 10%. Patient will receive a letter notifying them of these results.
== END 2021-02-28 01:11 ==
PROVIDERS: PCP Nurse Practitioner; Visit Provider Nurse Practitioner
DX: Z12.31 Encounter for screening mammogram for malignant neoplasm of breast (principal); R92.8 Other abnormal and inconclusive findings on diagnostic imaging of breast
CPT/HCPCS: 77063; 77067

== ENCOUNTER 2021-03-25 03:15 | Outpatient (CLI) | payer MEDICARE, SELFPAY ==
--- NOTE | 2021-03-25 | DI.MAMMO_ITS ---
Exam(s) MAMMO SCREEN CALL BACK UNI EXAM: MAMMO SCREEN CALL BACK UNI CLINICAL HISTORY: F/U ABNL MAMMO, NEW GROUP OF MICROCALCIFICATIONS LT BREAST TECHNIQUE: Mammograms were interpreted according to the usual protocol including computer analysis w [employer] CAD system, tomosynthesis and C-view imaging. COMPARISON: FINDINGS: Additional mammographic views were obtained to evaluate suspected new microcalcifications of the left breast projected posteriorly and inferiorly in the breast. Additional views show that these calcifi cations in fact lie in the skin, and the patient was noted to have a lesion at a site corresponding t o these radiodensities on the lower outer skin of the breast far posteriorly. No suspicious intramammary calcification seen. IMPRESSION: No specific evidence of malignancy at this time. Routine screening examinations are suggested at yea rly intervals in this age group according to the ACS ACR guidelines. BI-RADS Category 2 - Benign Findings Breast Density - Category C - Heterogeneously dense
== END 2021-03-25 03:35 ==
PROVIDERS: PCP Nurse Practitioner; Visit Provider Nurse Practitioner
DX: R92.8 Other abnormal and inconclusive findings on diagnostic imaging of breast (principal)
CPT/HCPCS: 77063; 77067

== ENCOUNTER → 2021-07-14 09:37 | Outpatient (BNVA) | payer MEDICARE, SELFPAY | PROVIDERS: PCP Nurse Practitioner; Referring Provider Nurse Practitioner; Visit Provider Student in an Organized Health Care Education/Training Program | DX: M16.11 Unilateral primary osteoarthritis, right hip (principal); M17.11 Unilateral primary osteoarthritis, right knee; M70.61 Trochanteric bursitis, right hip | CPT/HCPCS: 99213 ==

== ENCOUNTER 2021-10-31 04:20 | Outpatient (CLI) | payer MEDICARE, SELFPAY ==
[2021-10-31 07:38] LABS: HCT 38.5 % (36.0-46.0); HGB 11.9 g/dL (11.2-15.7); MCH 28.5 pg (27.0-33.0); MCHC 30.9 % (32.0-36.0); MCV 92.3 fL (80-95); MPV 9.1 fL (8.0-11.0); Platelet Count 303 10^3/uL (130-400); RBC 4.17 10^6/uL (3.93-5.22); RDW 13.8 % (11.7-14.6); RDW-SD 47.2 fL; WBC 8.87 10^3/uL (4.4-10.8)
[2021-10-31 08:55] LABS: ALT 26 U/L (14-59); AST 19 U/L (15-37); Albumin 3.4 g/dL (3.4-5.0); Alkaline Phosphatase 111 U/L (46-116); Anion Gap 9.9 mmol/L (3-11); BUN 30 mg/dL (7-18); Bilirubin, Total 0.6 mg/dL (0.2-1.0); CO2 26.1 mmol/L (21.0-32.0); CREATININE 1.2 mg/dL (0.55-1.02); Calcium 9.2 mg/dL (8.5-10.1); Chloride 104 mmol/L (98-107); Estimated GFR 43.68 (mL/min/1.73m2); Glucose 173 mg/dL (74-106); Magnesium 1.5 mg/dL (1.8-2.4); Potassium 3.9 mmol/L (3.5-5.1); Sodium 140 mmol/L (136-145)
== END 2021-10-31 04:21 | disposition home or self-care (01) ==
LOC: LBO 04:21
PROVIDERS: PCP Nurse Practitioner; Visit Provider Nurse Practitioner
DX: E11.69 Type 2 diabetes mellitus with other specified complication (principal); E66.9 Obesity, unspecified; J45.20 Mild intermittent asthma, uncomplicated; R79.9 Abnormal finding of blood chemistry, unspecified
CPT/HCPCS: 36415; 80053; 85027; 83735

== ENCOUNTER 2022-11-14 02:27 | Outpatient (CLI) | payer MEDICARE, SELFPAY ==
[2022-11-14 08:50] LABS: ALT 27 U/L (14-59); AST 19 U/L (15-37); Albumin 3.4 g/dL (3.4-5.0); Alkaline Phosphatase 103 U/L (46-116); Anion Gap 10.5 mmol/L (3-11); BUN 24 mg/dL (7-18); Bilirubin, Total 0.5 mg/dL (0.2-1.0); CO2 25.5 mmol/L (21.0-32.0); CREATININE 1.4 mg/dL (0.55-1.02); Calcium 9.2 mg/dL (8.5-10.1); Calculated LDL 96 mg/dL (<100); Chloride 103 mmol/L (98-107); Cholesterol 169 mg/dL (<200); Estimated GFR 38.75 (mL/min/1.73m2); Glucose 160 mg/dL (74-106); HDL Cholesterol 47 mg/dL (40-60); Potassium 4.1 mmol/L (3.5-5.1); Sodium 139 mmol/L (136-145); Total Protein 7.7 g/dL (6.4-8.2); Triglyceride 133 mg/dL (<150)
== END 2022-11-14 02:28 | disposition home or self-care (01) ==
LOC: LBO 02:29
PROVIDERS: PCP Nurse Practitioner; Visit Provider Nurse Practitioner
DX: I10 Essential (primary) hypertension (principal); E78.5 Hyperlipidemia, unspecified; E11.69 Type 2 diabetes mellitus with other specified complication; E66.9 Obesity, unspecified
CPT/HCPCS: 36415; 80053; 80061

== ENCOUNTER → 2023-09-17 13:02 | Outpatient (BNVA) | payer MEDICARE, SELFPAY | PROVIDERS: PCP Nurse Practitioner; Referring Provider Nurse Practitioner; Visit Provider Podiatrist | DX: L60.3 Nail dystrophy (principal); Z79.01 Long term (current) use of anticoagulants; E11.69 Type 2 diabetes mellitus with other specified complication; E66.9 Obesity, unspecified | CPT/HCPCS: 11721 ==

== ENCOUNTER → 2023-12-17 13:28 | Outpatient (BNVA) | payer MEDICARE, SELFPAY | PROVIDERS: PCP Nurse Practitioner; Referring Provider Nurse Practitioner; Visit Provider Podiatrist | DX: L60.3 Nail dystrophy (principal); Z79.01 Long term (current) use of anticoagulants; E11.69 Type 2 diabetes mellitus with other specified complication; E66.9 Obesity, unspecified; I73.9 Peripheral vascular disease, unspecified | CPT/HCPCS: 11721 ==

== ENCOUNTER → 2024-04-02 14:05 | Outpatient (BNVA) | payer MEDICARE, SELFPAY | PROVIDERS: PCP Nurse Practitioner; Referring Provider Nurse Practitioner; Visit Provider Podiatrist | DX: L60.3 Nail dystrophy (principal); E11.69 Type 2 diabetes mellitus with other specified complication; E66.9 Obesity, unspecified; D64.9 Anemia, unspecified; E11.51 Type 2 diabetes mellitus with diabetic peripheral angiopathy without gangrene; N18.32 Chronic kidney disease, stage 3b; I73.9 Peripheral vascular disease, unspecified | CPT/HCPCS: 11721 ==

== ENCOUNTER 2024-04-17 03:01 | Outpatient (CLI) | payer MEDICARE, SELFPAY ==
[2024-04-17 09:09] LABS: Abs Immature Grans 0.03 10^3/uL (0.0-0.06); Absolute Basophil Count 0.03 10^3/uL (0.0-0.2); Absolute Eosinophil Count 0.26 10^3/uL (0.0-0.7); Absolute Lymphocyte Count 1.42 10^3/uL (1.2-3.4); Absolute Neutrophil Count 4.55 10^3/uL (1.2-6.7); Basophils % 0.4 %; Eosinophils % 3.9 %; HCT 38.1 % (36.0-46.0); HGB 11.8 g/dL (11.2-15.7); Immature Grans % 0.4 %; Lymphocytes % 21.2 %; MCH 29.4 pg (27.0-33.0); MCV 95 fL (80-95); MPV 9.1 fL (8.0-11.0); Neutrophils % 68.1 %; Platelet Count 246 10^3/uL (130-400); RBC 4.01 10^6/uL (3.93-5.22); RDW 13.8 % (11.7-14.6); RDW-SD 48.1 fL; WBC 6.69 10^3/uL (4.4-10.8)
[2024-04-17 09:57] LABS: ALT 25 U/L (14-59); AST 18 U/L (15-37); Albumin 3.2 g/dL (3.4-5.0); Alkaline Phosphatase 98 U/L (46-116); Anion Gap 8.2 mmol/L (3-11); BUN 27 mg/dL (7-18); Bilirubin, Total 0.67 mg/dL (0.2-1.0); CO2 27.8 mmol/L (21.0-32.0); CREATININE 1.3 mg/dL (0.55-1.02); Calcium 8.8 mg/dL (8.5-10.1); Calculated LDL 75 mg/dL (<100); Chloride 104 mmol/L (98-107); Cholesterol 149 mg/dL (<200); Estimated GFR 41.83 (mL/min/1.73m2); Glucose 170 mg/dL (74-106); HDL Cholesterol 48 mg/dL (40-60); Sodium 140 mmol/L (136-145); Total Protein 7.2 g/dL (6.4-8.2); Triglyceride 133 mg/dL (<150)
== END 2024-04-17 03:02 | disposition home or self-care (01) ==
LOC: LBO 03:02
PROVIDERS: PCP Nurse Practitioner; Visit Provider Nurse Practitioner
DX: E66.01 Morbid (severe) obesity due to excess calories (principal); E11.69 Type 2 diabetes mellitus with other specified complication; E66.9 Obesity, unspecified; I10 Essential (primary) hypertension
CPT/HCPCS: 36415; 80053; 80061; 85025

== ENCOUNTER → 2024-07-16 13:51 | Outpatient (BNVA) | payer MEDICARE, SELFPAY | PROVIDERS: PCP Nurse Practitioner; Referring Provider Nurse Practitioner; Visit Provider Podiatrist | DX: L60.3 Nail dystrophy (principal); E11.69 Type 2 diabetes mellitus with other specified complication; E66.9 Obesity, unspecified; D64.9 Anemia, unspecified; E11.51 Type 2 diabetes mellitus with diabetic peripheral angiopathy without gangrene; N18.32 Chronic kidney disease, stage 3b; R09.89 Other specified symptoms and signs involving the circulatory and respiratory systems; L65.9 Nonscarring hair loss, unspecified; R23.8 Other skin changes; L60.8 Other nail disorders; R20.8 Other disturbances of skin sensation; R60.0 Localized edema | CPT/HCPCS: 11721 ==

== ENCOUNTER → 2024-10-29 14:00 | Outpatient (BNVA) | payer MEDICARE, SELFPAY | PROVIDERS: PCP Nurse Practitioner; Referring Provider Nurse Practitioner; Visit Provider Podiatrist | DX: L60.3 Nail dystrophy (principal); E11.51 Type 2 diabetes mellitus with diabetic peripheral angiopathy without gangrene; E66.9 Obesity, unspecified; N18.32 Chronic kidney disease, stage 3b; R09.89 Other specified symptoms and signs involving the circulatory and respiratory systems; L65.9 Nonscarring hair loss, unspecified; R23.8 Other skin changes; L60.8 Other nail disorders; R20.8 Other disturbances of skin sensation; R60.0 Localized edema; L60.2 Onychogryphosis; L84 Corns and callosities | CPT/HCPCS: 11721 ==

== ENCOUNTER → 2025-02-03 13:02 | Outpatient (BNVA) | payer MEDICARE, SELFPAY | PROVIDERS: PCP Nurse Practitioner; Referring Provider Nurse Practitioner; Visit Provider Podiatrist | DX: L60.3 Nail dystrophy (principal); E11.69 Type 2 diabetes mellitus with other specified complication; E66.9 Obesity, unspecified; E11.51 Type 2 diabetes mellitus with diabetic peripheral angiopathy without gangrene; N18.32 Chronic kidney disease, stage 3b; R09.89 Other specified symptoms and signs involving the circulatory and respiratory systems; L65.9 Nonscarring hair loss, unspecified; R23.8 Other skin changes; L60.8 Other nail disorders; R20.8 Other disturbances of skin sensation; R60.0 Localized edema; L60.2 Onychogryphosis; L85.8 Other specified epidermal thickening | CPT/HCPCS: 11719 ==

== ENCOUNTER → 2025-05-12 13:01 | Outpatient (BNVA) | payer MEDICARE, SELFPAY | PROVIDERS: PCP Nurse Practitioner Family; Referring Provider Nurse Practitioner; Visit Provider Podiatrist | DX: L60.3 Nail dystrophy (principal); E11.69 Type 2 diabetes mellitus with other specified complication; E66.9 Obesity, unspecified; E11.51 Type 2 diabetes mellitus with diabetic peripheral angiopathy without gangrene; N18.32 Chronic kidney disease, stage 3b; R09.89 Other specified symptoms and signs involving the circulatory and respiratory systems; L65.9 Nonscarring hair loss, unspecified; R23.8 Other skin changes; L60.2 Onychogryphosis; R20.8 Other disturbances of skin sensation; L85.8 Other specified epidermal thickening | CPT/HCPCS: 11719 ==

== ENCOUNTER 2025-05-26 01:16 | Outpatient (CLI) | payer MEDICARE, SELFPAY ==
[2025-05-26 13:45] LABS: ALT 23 U/L (14-59); AST 14 U/L (15-37); Albumin 3.2 g/dL (3.4-5.0); Alkaline Phosphatase 98 U/L (46-116); Anion Gap 7.8 mmol/L (3-11); BUN 31 mg/dL (7-18); Bilirubin, Total 0.5 mg/dL (0.2-1.0); CO2 28.2 mmol/L (21.0-32.0); Calcium 9.1 mg/dL (8.5-10.1); Chloride 102 mmol/L (98-107); Estimated GFR 35.01 (mL/min/1.73m2); Glucose 231 mg/dL (74-106); HDL Cholesterol 41 mg/dL (>or=50); LDL CHOLESTEROL 98 mg/dL (<100); Magnesium 1.8 mg/dL (1.8-2.4); Potassium 4.4 mmol/L (3.5-5.1); Sodium 138 mmol/L (136-145); Total Protein 7.5 g/dL (6.4-8.2)
[2025-05-26 13:56] LABS: Creatine Kinase 49 U/L (26-192)
== END 2025-05-26 01:17 | disposition home or self-care (01) ==
LOC: LBO 01:16
PROVIDERS: PCP Nurse Practitioner Family; Referring Provider Nurse Practitioner Family; Visit Provider Nurse Practitioner Family
DX: E78.5 Hyperlipidemia, unspecified (principal); I10 Essential (primary) hypertension; R79.0 Abnormal level of blood mineral
CPT/HCPCS: 36415; 80053; 82550; 83721; 83718; 83735